=== PATIENT | male | born 1980 | race Caucasian/White ===

== ENCOUNTER 2021-08-06 10:27 | Inpatient (IN) | payer MEDICAID, SELFPAY ==
[2021-08-06] VITALS (20 sets, daily range): BP systolic 104–166; BP diastolic 54–111; PULSE 131–147; RESP 16–24; TEMP 36.7–37.3; O2SAT 93–100; BMI 62.4; BMI 63.1
--- NOTE | 2021-08-06 10:35 | XR_ITS ---
WS: [id number] XR chest 1V portable [id number] REASON FOR EXAM: Upper respiratory symptoms, SOB FINDINGS: Mild tortuosity the thoracic aorta. Cardiomegaly. Reticular and hazy lung opacities in both lower lungs. No pleural fluid identified. Bony thorax intact. XR/XR chest 1V portable [id number] IMPRESSION: Lung opacities which are most compatible with subacute pneumonitis.
--- NOTE | 2021-08-06 12:46 | ECG_ITS ---
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 Measurements Intervals [place] Rate: 145 P: [place]: QRS: 147 QRSD: 97 T: 120 QT: 229 QTc: 357 Interpretive Statements ATRIAL FLUTTER WITH RAPID VENTRICULAR RESPONSE POSSIBLE RIGHT VENTRICULAR HYPERTROPHY POSSIBLE LIMB LEAD REVERSAL ANTEROLATERAL MYOCARDIAL INFARCTION , PROBABLY RECENT No previous ECG available for comparison Electronically Signed On 08-06-2021 19:25:48 DOBBY LOOM WEAVER by Pretty Larry M.D. [id number] f
--- NOTE | 2021-08-06 12:49 | W.ED.ARRPALP ---
HPI - Arrhythmia/Palpitations General: Chief Complaint: Shortness of Breath/Dyspnea Stated Complaint: SOB, Possible Upper respiratory Time Seen by Provider: 08/06/21 12:19 History of Present Illness: 41-year-old male presents to the emergency room with complaint of shortness of breath and rapid heart rate with a cough. Been going on for the last 5 days feels like he cannot take a deep breath he is noticed very sudden drop in his stamina with any exertion. Feels like he can hardly catch his breath at times he feels like he cannot take a deep breath he describes it as feeling like there is fluid on his lungs. Patient is super morbidly obese with a BMI of 62-1/2. He has not had any chest pain. No fever sweats or chills MD complaint: rapid heart beat and heart racing Onset (ago): day(s) (5) Duration: constant Severity: moderate Context: occurred during rest Associated symptoms: Reports short of breath; Deny anxiety, cough, diaphoresis, muscle cramps, nausea, paresthesias, sense of impending doom, syncope or vomiting Review of Systems Const: Denies: diaphoresis ENMT: Denies: throat pain, ear or mastoid pain, nasal discharge or nasal congestion Card: Denies: syncope Resp: Denies: dyspnea, productive cough or non-productive cough GI: Denies: nausea or vomiting : Denies: flank pain, dysuria, urinary frequency or urinary urgency Musc: Denies: muscle cramps Skin/Breast: Denies: rash or pruritus Psych: Denies: anxiety PFSH ED PFSH: Medical History Diabetes mellitus type 2 in obese Hyperlipidemia Hypertension Obesity Obstructive sleep apnea Surgical History History of knee surgery Family History Other Dementia Diabetes Social History Smoking and tobacco status: current every day smoker Alcohol intake: current Alcohol intake frequency: holidays/special occasions only Physical Exam Const: COMMON NORMALS: no acute distress GENERAL APPEARANCE: cooperative and comfortable ORIENTATION/CONSCIOUSNESS: Yes awake, Yes oriented to person, Yes oriented to place and Yes oriented to time HENMT: COMMON NORMALS: normocephalic, atraumatic and hearing grossly normal bilaterally HEAD & SCALP: normocephalic and atraumatic Resp: COMMON NORMALS: normal respiratory effort, No retractions, No use of accessory muscles and clear to auscultation bilaterally AUSCULTATION: clear to auscultation bilaterally Cardio: RATE: tachycardic RHYTHM: abnormal rhythm irregularly irregular GI: COMMON NORMALS: Soft to palpation and No hepatosplenomegaly present AUSCULTATION: Yes normoactive bowel sounds PALPATION: Yes Soft to palpation, No Tenderness to palpation present (GI), No Guarding due to palpation present (GI) and Yes No hepatosplenomegaly present Extremity: COMMON NORMALS: normal to inspection, capillary refill normal, no clubbing, cyanosis or edema, no calf tenderness and no pedal edema Neuro: SENSORIUM/ORIENTATION: Yes oriented to person, Yes oriented to place and Yes oriented to time Skin: COMMON NORMALS: no rashes or lesions noted GENERAL SKIN EXAM: no rashes or lesions noted Course Vital Signs: Vital signs: Vital Signs Temperature 97.7 F 08/11/21 06:49 Pulse Rate 97 08/11/21 08:04 Respiratory Rate 15 08/11/21 06:49 Blood Pressure 134/73 08/11/21 06:49 Pulse Oximetry 92 08/11/21 06:49 MDM - Arrhythmia/Palpitations Medical Decision Making A. fib/flutter. Patient resistant to Cardizem changed to esmolol. Discussed with hospitalist will admit consult cardiology. Incidental finding of cystitis. Treatment initiated. Medical Records I reviewed the patient's medical records. Lab Data I reviewed the patient's lab results. : 08/11/21 04:02 08/10/21 04:18 Radiology Impressions Chest X-Ray 08/06/21 10:35 IMPRESSION: Lung opacities which are most compatible with subacute pneumonitis. Laboratory Results WBC 15.2 10^3/uL (4.0-10.0) H 08/06/21 13:02 RBC 4.77 10^6/uL (4.1-5.3) 08/06/21 13:02 Hgb 14.5 g/dL (11.7-16.6) 08/06/21 13:02 Hct 43.7 % (42.0-52.0) 08/06/21 13:02 MCV 91.6 fl (80-94) 08/06/21 13:02 MCH 30.4 pg (28.0-34.0) 08/06/21 13:02 MCHC 33.2 g/dL (30.0-36.0) 08/06/21 13:02 RDW 13.8 % (12.1-15.1) 08/06/21 13:02 Plt Count 310 10^3/cmm (130-400) 08/06/21 13:02 MPV 11.4 fL (7.4-10.4) H 08/06/21 13:02 Neut % (Auto) 75.3 % 08/06/21 13:02 Lymph % (Auto) 14.9 % 08/06/21 13:02 Summers % (Auto) 5.5 % 08/06/21 13:02 Eos % (Auto) 3.3 % 08/06/21 13:02 Baso % (Auto) 0.5 % 08/06/21 13:02 Neut # (Auto) 11.45 10^3/uL (1.8-7.7) H 08/06/21 13:02 Lymph # (Auto) 2.3 10^3/uL (0.8-4.8) 08/06/21 13:02 Summers # (Auto) 0.8 10^3/uL (0.2-0.9) 08/06/21 13:02 Eos # (Auto) 0.5 10^3/uL (0.0-0.8) 08/06/21 13:02 Baso # (Auto) 0.1 10^3/uL (0.0-0.1) 08/06/21 13:02 Nucleated RBC % (auto) 0 % 08/06/21 13:02 Nucleated RBCs # 0.0 /100WBC 08/06/21 13:02 Sodium 142 mmol/L (136-145) 08/06/21 13:02 Potassium 3.8 mmol/L (3.5-5.1) 08/06/21 13:02 Chloride 101 mmol/L (98-107) 08/06/21 13:02 Carbon Dioxide 24 mmol/L (22-29) 08/06/21 13:02 Anion Gap 20.8 (5-19) H 08/06/21 13:02 BUN 10 mg/dL (6-20) 08/06/21 13:02 Creatinine 0.6 mg/dL (0.7-1.2) L 08/06/21 13:02 GFR Calculation 147.0 mL/min (90-130) H 08/06/21 13:02 Glucose 150 mg/dL (65-115) H 08/06/21 13:02 Calculated Osmolality 296 mOsm/kg (285-295) H 08/06/21 13:02 Calcium 9.4 mg/dL (8.5-10.5) 08/06/21 13:02 Magnesium 1.8 mg/dL (1.7-2.3) 08/06/21 13:55 Total Bilirubin 0.5 mg/dL (0.15-1.2) 08/06/21 13:02 AST 36 U/L (0-40) 08/06/21 13:02 ALT 56 U/L (0-41) H 08/06/21 13:02 Alkaline Phosphatase 77 IU/L (40-130) 08/06/21 13:02 Creatine Kinase 148 U/L (39-308) 08/06/21 13:02 Troponin T Baseline 45 ng/L (0-15) H 08/06/21 13:55 NT-Pro-B Natriuret Pep 1646 pg/mL (0-125) H 08/06/21 13:55 Total Protein 6.6 g/dL (6.6-8.7) 08/06/21 13:02 Albumin 4.3 g/dL (3.5-5.2) 08/06/21 13:02 Globulin 2.3 g/dL (1.3-4.6) 08/06/21 13:02 Procalcitonin 0.05 ng/mL (0-0.5) 08/06/21 13:55 TSH 3.62 uIU/mL (0.27-4.20) 08/06/21 13:55 Urine Color Yellow (Yellow) 08/06/21 13:55 Urine Appearance Cloudy (CLEAR) 08/06/21 13:55 Urine pH 5 (5-7) 08/06/21 13:55 Ur Specific [place] 1.020 (1.005-1.030) 08/06/21 13:55 Urine Protein 3+ (Negative) H 08/06/21 13:55 Urine Glucose (UA) Norm (Normal) 08/06/21 13:55 Urine Ketones Negative (Negative) 08/06/21 13:55 Urine Blood 2+ (Negative) H 08/06/21 13:55 Urine Nitrate Negative (Negative) 08/06/21 13:55 Urine Bilirubin Neg (Negative) 08/06/21 13:55 Urine Urobilinogen Neg mg/dL (Negative) 08/06/21 13:55 Ur Leukocyte Esterase 2+ (Negative) H 08/06/21 13:55 Urine RBC 5-10 /hpf (0-2) H 08/06/21 13:55 Urine WBC >100 /hpf (0-5) H 08/06/21 13:55 Ur Squamous Epith Cells 0-4 /hpf (0-5) H 08/06/21 13:55 Amorphous Sediment Not Reportable 08/06/21 13:55 Urine Bacteria 2+ /hpf (NONE) H 08/06/21 13:55 Coronavirus 229E (PCR) Not detected (NOT DETECT) 08/06/21 14:15 SARS-CoV-2 (PCR) Not detected (NOT DETECT) 08/06/21 14:15 Discharge Plan Discharge Patient Disposition: Admitted As Inpatient Admit Provider: Judy Clark Clinical Impression: Atrial flutter with rapid ventricular response, CHF (congestive heart failure), Obstructive sleep apnea, Diabetes mellitus type 2 in obese, Hypertension, UTI (urinary tract infection) Condition: Stable Coding Level of Care Code ED [employer] Mill Lab Technician for Tomeka Sanz
[2021-08-06 13:16] LABS: Basophils # 0.1 10^3/uL (0.0-0.1); Basophils % 0.5 %; Eosinophils # 0.5 10^3/uL (0.0-0.8); Eosinophils % 3.3 %; Hematocrit 43.7 % (42.0-52.0); Hemoglobin 14.5 g/dL (11.7-16.6); Lymphocytes # 2.3 10^3/uL (0.8-4.8); Lymphocytes % 14.9 %; Mean Corpuscular HGB Conc 33.2 g/dL (30.0-36.0); Mean Corpuscular Hemoglobin 30.4 pg (28.0-34.0); Mean Corpuscular Volume 91.6 fl (80-94); Mean Platelet Volume 11.4 fL (7.4-10.4); Monocytes # 0.8 10^3/uL (0.2-0.9); Monocytes % 5.5 %; Neutrophils # 11.45 10^3/uL (1.8-7.7); Neutrophils % 75.3 %; Nucleated Red Blood Cells % 0 %; Platelet Count 310 10^3/cmm (130-400); Red Blood Count 4.77 10^6/uL (4.1-5.3); Red Cell Distribution Width 13.8 % (12.1-15.1); White Blood Count 15.2 10^3/uL (4.0-10.0)
[2021-08-06 13:55] LABS: Alanine Aminotransferase 56 U/L (0-41); Albumin Level 4.3 g/dL (3.5-5.2); Alkaline Phosphatase 77 IU/L (40-130); Anion Gap 20.8 (5-19); Aspartate Amino Transferase 36 U/L (0-40); Blood Urea Nitrogen 10 mg/dL (6-20); Calcium 9.4 mg/dL (8.5-10.5); Carbon Dioxide 24 mmol/L (22-29); Chloride 101 mmol/L (98-107); Creatine Phosphokinase 148 U/L (39-308); Globulin 2.3 g/dL (1.3-4.6); Glucose 150 mg/dL (65-115); Osmolality Calculated 296 mOsm/kg (285-295); Potassium 3.8 mmol/L (3.5-5.1); Sodium 142 mmol/L (136-145); Total Bilirubin 0.5 mg/dL (0.15-1.2); Total Protein 6.6 g/dL (6.6-8.7)
[2021-08-06 14:24] LABS: Bilirubin Urine Neg (Negative); Blood Urine 2+ (Negative); Glucose Urine UA Norm (Normal); Ketones Urine Negative (Negative); Nitrate Urine Negative (Negative); Protein Urine 3+ (Negative); Urine Appearance Cloudy (CLEAR); Urine Color Yellow (Yellow); pH Urine 5 (5-7)
[2021-08-06 14:25] LABS: Add Urine Culture? Yes; Add Urine Microscopic? YES; Bacteria Urine 2+ /hpf; Leukocyte Esterase Urine 2+ (Negative); Squamous Epithelial Cell Urine 0-4 /hpf (0-5); Urobilinogen Urine Neg (Negative); WBC Urine >100 /hpf (0-5)
[2021-08-06 14:44] LABS: Troponin(5th) Baseline 45 ng/L (0-15)
--- NOTE | 2021-08-06 14:46 | ECG_ITS ---
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 Measurements Intervals [place] Rate: 142 P: [place]: QRS: 105 QRSD: 84 T: 56 QT: 290 QTc: 447 Interpretive Statements ATRIAL FLUTTER WITH RAPID VENTRICULAR RESPONSE RIGHT AXIS DEVIATION [QRS AXIS > 100] LOW QRS VOLTAGE [QRS DEFLECTION < 0.5/1.0 mV IN LIMB/CHEST LEADS] ANTEROSEPTAL MYOCARDIAL INFARCTION , OF INDETERMINATE AGE [40+ ms Q WAVE IN V1-V4] Compared to ECG 08/06/2021 16:31:02 No significant changes Electronically Signed On 08-06-2021 19:35:03 BINGO CLERK by Pretty Larry M.D. [id number]
[2021-08-06 14:50] LABS: NT Pro B Type Natriuretic Pept 1646 pg/mL (0-125); Procalcitonin 0.05 ng/mL (0-0.5)
--- NOTE | 2021-08-06 15:15 | P.HP_ITS ---
Providers/Chief Complaint Chief Complaint: SOB, Possible Upper respiratory History of Present Illness Franco Flowers is a 41 year old male who presents with concerns of shortness of breath occurring for at least the last 3 days. He coughs a lot, and is significantly short of breath when he lays down. He reports this is not happened before. He denies any significant heart problems other than hypertension. He reports no fever. No real productivity to his cough. No history of Covid, exposure, or vaccination. Denies any chest discomfort, severe leg swelling, leg pain. In the emergency department he was placed on a diltiazem drip after bolus, which was not effective and and he has been converted to esmolol. A UTI was also discovered and he received a dose of ceftriaxone. Review of Systems General: Reports: 10 or more systems reviewed and unremarkable except in HPI and below Const: Denies: fever(s) or chills Eyes: Denies: change in vision ENMT: Denies: throat pain Card: Reports: dyspnea on exertion and orthopnea; Denies: chest pain Resp: Reports: dyspnea GI: Denies: abdominal pain, nausea, vomiting, hematochezia or melena : Denies: flank pain, urinary frequency or urinary urgency Musc: Denies: neck pain Skin/Breast: Denies: rash Neuro: Denies: headache(s) Psych: Denies: anxiety Marco/Lymph: Denies: easy bruising All/Imm: Denies: urticaria Medications/Allergies Home Medications Medication Instructions Recorded Confirmed Last Taken Type atorvastatin 20 mg tablet (Lipitor) 20 mg PO DAILY 08/06/21 08/06/21 04/28/21 History hydrochlorothiazide 25 mg tablet 25 mg PO BID 08/06/21 08/06/21 04/28/21 History losartan 100 mg tablet 100 mg PO DAILY 08/06/21 08/06/21 04/28/21 History metformin 1,000 mg tablet 1,000 mg PO BID 08/06/21 08/06/21 04/28/21 History Allergies Allergy/AdvReac Type Severity Reaction Status Date / Time meperidine [From Demerol] Allergy ALGY-Hives Verified 08/06/21 11:00 lucius Allergy ALGY-Anaphy Uncoded 08/06/21 11:00 laxis PFSH Acute PFSH: Medical History (Updated 08/06/21 @ 15:26 by Carlos Serrano MD) Diabetes mellitus type 2 in obese Hyperlipidemia Hypertension Obesity Obstructive sleep apnea Surgical History (Updated 08/06/21 @ 15:18 by Carlos Serrano MD) History of knee surgery Family History (Updated 08/06/21 @ 15:19 by Carlos Serrano MD) Other Dementia Diabetes Social History (Updated 08/06/21 @ 15:19 by Carlos Serrano MD) Smoking and tobacco status: current every day smoker Alcohol intake: current Alcohol intake frequency: holidays/special occasions only Vitals/I&O/Wt Last Vital Signs Temp 98.0 F 08/06/21 13:24 Pulse 147 H 08/06/21 13:24 Resp 22 H 08/06/21 13:24 BP 163/107 08/06/21 13:24 Pulse Ox 96 08/06/21 13:24 08/06/21 08/06/21 08/06/21 06:59 14:59 22:59 Intake Total 7.584 / 7.584 Balance 7.584 / 7.584 Weight last 48 hrs Weight 208.652 kg Physical Exam Narrative: General exam is a male, no distress, sitting up reporting he is short of breath with minimal exertion HEENT: Atraumatic normocephalic. Oropharynx clear. Neck is supple no lymphadenopathy or thyromegaly Cardiovascular irregular, irregular with accelerated rate, no murmur Lungs clear no wheezing or crackles Abdomen is soft obese nontender. Estimation of organomegaly cannot occur secondary to obesity exams deferred Extremities 1+ edema Skin acanthosis noted Neuro no obvious focal deficits. Data : 08/06/21 13:02 08/06/21 13:02 Other Labs: LFTs normal with exception of slight elevation of ALT at 56. Troponin 45 BNP 1646 Urinalysis with greater than 100 whites, 5-10 reds chest xray difficult to interpret secondary to obesity. Possibly fluid overload. EKG Aflutter with RVR, RAD A&P Assessment and plan (1) Atrial flutter with rapid ventricular response: Significant atrial fibrillation with rapid ventricular rate on arrival to the emergency department. He has failed to respond to Cardizem IV. Esmolol IV has been ordered Lasix 40 mg IV x1. He appears to have some fluid overload, likely secondary to his fast rate. This is consistent with acute diastolic heart failure. If rate can come under control consider initiation of oral Cardizem along with the esmolol. Could potentially tolerate digoxin as well. Anticoagulation will be initiated. I discussed the risks and benefits with the patient. Check echocardiogram, TSH, magnesium level Status: Acute (2) Hypertension: Hold his losartan Lasix 40 mg IV x1 Esmolol drip has been initiated Likely will initiate Cardizem p.o. as well Addition of ARB depending upon blood pressure after the above Status: Acute (3) UTI (urinary tract infection): Urine culture Rocephin 1 g IV every 24 hours No evidence of sepsis Status: Acute Plan Diabetes mellitus. Sliding scale insulin. History of obstructive sleep apnea. He reports he cannot tolerate BiPAP Tobacco dependency. Encourage cessation. Multiple other medical problems as outlined in past medical history Full code Anticoagulation for DVT prophylaxis Attestations Medical Necessity Statement*: Will need greater than 2 midnight stay secondary to new onset atrial fibrillation with rapid ventricular rate. Time Spent in Patient Care: Greater than 35 minutes spent in patient care. Coding Level of Care Code Acute Actuarial Technician for Tomeka Sanz Diagnoses Atrial flutter with rapid ventricular response I48.92 Hypertension I10 UTI (urinary tract infection) N39.0
[2021-08-06 15:17] LABS: Magnesium 1.8 mg/dL (1.7-2.3); Thyroid Stimulating Hormone 3.62 uIU/mL (0.27-4.20)
[2021-08-06] MEDS: esmolol drip 2,500 MG/250 ML PREMIX 62.6 MG IV (15:17)
[2021-08-06 15:57] LABS: Troponin 5 2HR 47.09 ng/L (0-15)
[2021-08-06 15:58] LABS: Troponin 5 2HR Delta 2.09 ABS# (0-10)
[2021-08-06] MEDS: FUROsemide 10 mg/mL SDV 4mL 40 MG IVP (16:10)
[2021-08-06 16:11] LABS: Adenovirus Not Detected (NOT DETECT); Chlamydia Pneumoniae Not Detected (NOT DETECT); Coronavirus 229E,HKU1,NL63,OC4 Not Detected (NOT DETECT); Human Metapneumovirus Not Detected (NOT DETECT); Human Rhinovirus/Enterovirus Not Detected (NOT DETECT); Influenza A Not Detected (NOT DETECT); Influenza A H1 Not Detected (NOT DETECT); Influenza A H1-2009 Not Detected (NOT DETECT); Influenza A H3 Not Detected (NOT DETECT); Influenza B Not Detected (NOT DETECT); Mycoplasma Pneumoniae Not Detected (NOT DETECT); Parainfluenza Virus Type 1 Not Detected (NOT DETECT); Parainfluenza Virus Type 2 Not Detected (NOT DETECT); Parainfluenza Virus Type 3 Not Detected (NOT DETECT); Parainfluenza Virus Type 4 Not Detected (NOT DETECT); Respiratory Syncytial Virus A Not Detected (NOT DETECT); Respiratory Syncytial Virus B Not Detected (NOT DETECT); SARS-COV-2 Not Detected (NOT DETECT)
[2021-08-06] MEDS: digoxin 250 mcg/ml INJ 2 mL 500 MCG IVP (16:54)
[2021-08-06] MEDS: esmolol drip 2,500 MG/250 ML PREMIX 156.49 MG IV (17:41)
--- NOTE | 2021-08-06 18:46 | ECG_ITS ---
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 Measurements Intervals [place] Rate: 143 P: [place]: QRS: 106 QRSD: 91 T: 59 QT: 298 QTc: 460 Interpretive Statements ATRIAL FLUTTER WITH RAPID VENTRICULAR RESPONSE RIGHT AXIS DEVIATION [QRS AXIS > 100] LOW QRS VOLTAGE [QRS DEFLECTION < 0.5/1.0 mV IN LIMB/CHEST LEADS] ANTEROSEPTAL MYOCARDIAL INFARCTION , OF INDETERMINATE AGE [40+ ms Q WAVE IN V1-V4] Compared to ECG 08/06/2021 12:30:11 Right-axis deviation now present Low QRS voltage now present Atrial abnormality no longer present Myocardial infarct finding still present Electronically Signed On 08-06-2021 19:37:20 CRIME SCENE ANALYST by Pretty Larry M.D. [id number]
[2021-08-06] MEDS: esmolol drip 2,500 MG/250 ML PREMIX 187.79 MG IV ×3 (20:00→22:36)
[2021-08-06] MEDS: apixaban 5 mg Tablet PO (20:13)
[2021-08-06 20:36] LABS: Troponin 5 6HR 54.52 ng/L (0-15)
[2021-08-06 20:39] LABS: Troponin 5 6HR Delta 9.52 ng/L (0-12)
[2021-08-06 20:47] LABS: Glucose Point of Care 202 mg/dL (70-110)
[2021-08-06] MEDS: insulin lispro 100 unit/1 mL SUBCUT (21:13)
[2021-08-06] MEDS: digoxin 250 mcg/ml INJ 2 mL IVP (21:19)
[2021-08-06] MEDS: dilTIAZem 60 mg Tablet PO (21:59)
--- NOTE | 2021-08-06 23:45 | PC.NURSE ---
pt admitted to unit from ED. Pt was assisted to bed with standby assist. Pt placed on monitor. pt educated about need to monitor urine output and offered urinal to help monitor. pt refused urinal and SCD despite education provided. Pt stating he wants to walk to the bathroom.
[2021-08-07] VITALS (45 sets, daily range): BP systolic 109–156; BP diastolic 67–122; PULSE 79–139; RESP 14–28; TEMP 36.4–37.2; O2SAT 85–100; BMI 63.1
--- NOTE | 2021-08-07 | USCV_ITS ---
Transthoracic Echo Franco Flowers Age: 41 Gender: M : 1980 Exam Date: 08/07/2021 06:18 Ordering Phys: Carlos Serrano MD Technologist: TAMARA Exam Location: [facility] [place] Indication: A-Fib BP: 147 / 104 HR: 91 Rhythm: Atrial fibrillation Technical Quality: Adequate MEASUREMENTS (Male / Female) Normal Values 2D ECHO LV Diastolic Diameter PLAX 4.2 cm 4.2 - 5.9 / 3.9 - 5.3 cm LV Systolic Diameter PLAX 2.7 cm IVS Diastolic Thickness 1.8 cm 0.6 - 1.0 / 0.6 - 0.9 cm IVS Systolic Thickness 2.0 cm LVPW Diastolic Thickness 1.8 cm 0.6 - 1.0 / 0.6 - 0.9 cm LVPW Systolic Thickness 1.5 cm LVOT Diameter 2.6 cm LV Ejection Fraction 2D Teich 64.2 % LA Diameter 4.7 cm Aorta at Sinotubular Diameter 2.9 cm M-MODE Aortic Annulus Diameter 2.8 cm LA Ao Ratio MM 1.7 DOPPLER TR Peak Velocity 137.4 cm/s TR Peak Gradient 7.6 mmHg TR Mean Velocity 103.9 cm/s TR Mean Gradient 4.9 mmHg TR Velocity Time Integral 35.1 cm TV Peak E Velocity 68.0 cm/s Right Atrial Pressure 8.0 mmHg Pulmonary Artery Systolic Pressu 15.6 mmHg PV Peak Velocity 80.0 cm/s RV Acceleration Time 0.1 s RV Ejection Time 0.3 s RV AcT/ET 0.4 FINDINGS Left Ventricle Moderately increased left ventricular cavity size. Severely decreased left ventricular systolic function. Global left ventricular hypokinesis. Left ventricular ejection fraction is estimated at 30 %. In the presence of atrial fibrillation or flutter diastolic function cannot be assessed accurately. Right Ventricle The right ventricle is normal in size and function. RVSP could not be calculated due to incomplete tricuspid regurgitation velocity profile. Right Atrium The right atrium is normal in size. Left Atrium The left atrium is normal in size. Mitral Valve Structurally normal mitral valve without significant stenosis or prolapse. There is no mitral regurgitation. Aortic Valve Structurally normal aortic valve without significant sclerosis or stenosis. There is no aortic regurgitation. Tricuspid Valve Structurally normal tricuspid valve without significant stenosis or regurgitation. Pulmonary artery systolic pressure is normal. Pulmonic Valve Structurally normal pulmonic valve without significant stenosis. There is no pulmonic regurgitation. Pericardium Normal pericardium without effusion. Aorta Normal ascending aorta dimension. CONCLUSIONS 1-Moderately increased left ventricular cavity size. Severely decreased left ventricular systolic function. Global left ventricular hypokinesis. Left ventricular ejection fraction is estimated at 30 %. In the presence of atrial fibrillation or flutter diastolic function cannot be assessed accurately. 2-There is no pericardial effusion. 3-No significant valve abnormalities. 4-The right ventricle is normal in size and function. RVSP could not be calculated due to incomplete tricuspid regurgitation velocity profile. 5-There are no prior echocardiogram studies to compare. Teagan Arceo MD (Electronically Signed) Final Date: 07 August 2021 14:54 S
[2021-08-07] MEDS: esmolol drip 2,500 MG/250 ML PREMIX 156.49 MG IV ×3 (00:05→03:40)
[2021-08-07] MEDS: dilTIAZem 60 mg Tablet PO ×4 (03:40→21:08)
[2021-08-07 04:17] LABS: Basophils # 0.1 10^3/uL (0.0-0.1); Basophils % 0.4 %; Eosinophils # 0.5 10^3/uL (0.0-0.8); Eosinophils % 3.9 %; Hematocrit 42.1 % (42.0-52.0); Hemoglobin 13.7 g/dL (11.7-16.6); Lymphocytes # 2.1 10^3/uL (0.8-4.8); Lymphocytes % 15.7 %; Mean Corpuscular HGB Conc 32.5 g/dL (30.0-36.0); Mean Corpuscular Hemoglobin 30.8 pg (28.0-34.0); Mean Corpuscular Volume 94.6 fl (80-94); Mean Platelet Volume 11.4 fL (7.4-10.4); Monocytes # 0.8 10^3/uL (0.2-0.9); Neutrophils # 9.86 10^3/uL (1.8-7.7); Neutrophils % 73.6 %; Nucleated Red Blood Cells % 0 %; Platelet Count 294 10^3/cmm (130-400); Red Blood Count 4.45 10^6/uL (4.1-5.3); Red Cell Distribution Width 14.2 % (12.1-15.1); White Blood Count 13.4 10^3/uL (4.0-10.0)
[2021-08-07 04:39] LABS: Anion Gap 14.8 (5-19); Blood Urea Nitrogen 12 mg/dL (6-20); Calcium 9.4 mg/dL (8.5-10.5); Carbon Dioxide 26 mmol/L (22-29); Chloride 101 mmol/L (98-107); Glomerular Filtration Rate 105.5 mL/min (90-130); Glucose 124 mg/dL (65-115); Osmolality Calculated 287 mOsm/kg (285-295); Potassium 3.8 mmol/L (3.5-5.1); Sodium 138 mmol/L (136-145)
[2021-08-07] MEDS: esmolol drip 2,500 MG/250 ML PREMIX 125.19 MG IV (05:30)
[2021-08-07] MEDS: perflutren protein-a microsphr 0.22 mg/mL SDV 3 mL IV (07:31)
[2021-08-07] MEDS: esmolol drip 2,500 MG/250 ML PREMIX 93.89 MG IV ×6 (07:59→22:07)
[2021-08-07 08:39] LABS: Glucose Point of Care 122 mg/dL (70-110)
[2021-08-07] MEDS: atorvastatin 40 mg Tablet 20 MG PO (09:35)
[2021-08-07] MEDS: apixaban 5 mg Tablet PO ×2 (09:35→18:23)
[2021-08-07] MEDS: pantoprazole DR 40 mg Tablet PO (09:36)
--- NOTE | 2021-08-07 10:48 | P.CONIM_ITS ---
Providers/Reason For Consult Consulting Physician/Specialty*: Teagan Arceo MD Reason for Consult*: Atrial flutter with rapid ventricular response Requesting Physician: Dr. Donald Bearden Attending Physician: Carlos Serrano MD History of Present Illness History of Present Illness Franco Flowers is a 41 year old male past medical history significant for obstructive sleep apnea morbid obesity uncontrolled hypertension questionable compliance with medicine tobacco abuse presented with worsening of shortness of breath fatigue and palpitation. He was noted to be in atrial flutter with rapid ventricle response. He was also given IV Lasix for volume overload. UA was p ositive for infection which is being treated however despite of esmolol drip, calcium channel danis and addition of digoxin his heart rate has not slowed down. I have been asked to assist in his care. When I saw the patient he was sitting in the chair. He gave me history of post nocturnal dyspnea and lower extremity edema from time to time. He denies that he had weight gain however he has noticed that he is progressively getting worse with shortness of breath and lack energy. Review of Systems General: Reports: 10 or more systems reviewed and unremarkable except in HPI and below Const: Denies: fever(s) or chills Eyes: Denies: change in vision ENMT: Denies: throat pain Card: Reports: dyspnea on exertion and orthopnea; Denies: chest pain Resp: Reports: dyspnea GI: Denies: abdominal pain, nausea, vomiting, hematochezia or melena : Denies: flank pain, urinary frequency or urinary urgency Musc: Denies: neck pain Skin/Breast: Denies: rash Neuro: Denies: headache(s) Psych: Denies: anxiety Marco/Lymph: Denies: easy bruising All/Imm: Denies: urticaria Medications/Allergies Home Medications Medication Instructions Recorded Confirmed Last Taken Type atorvastatin 20 mg tablet (Lipitor) 20 mg PO DAILY 08/06/21 08/06/21 04/28/21 History hydrochlorothiazide 25 mg tablet 25 mg PO BID 08/06/21 08/06/21 04/28/21 History losartan 100 mg tablet 100 mg PO DAILY 08/06/21 08/06/21 04/28/21 History metformin 1,000 mg tablet 1,000 mg PO BID 08/06/21 08/06/21 04/28/21 History Allergies Allergy/AdvReac Type Severity Reaction Status Date / Time meperidine [From Demerol] Allergy ALGY-Hives Verified 08/06/21 11:00 lucius Allergy ALGY-Anaphy Uncoded 08/06/21 11:00 laxis Current Medications Generic Name Dose Route Start Last Admin Trade Name Freq PRN Reason Stop Dose Admin Apixaban 5 mg 08/06/21 18:00 08/07/21 09:35 Apixaban 5 Mg Tablet PO 5 mg BID CHICO Administration Atorvastatin Calcium 20 mg 08/07/21 09:00 08/07/21 09:35 Atorvastatin 40 Mg Tablet PO 20 mg DAILY [facility] Administration Diltiazem HCl 60 mg 08/06/21 22:00 08/07/21 09:35 Diltiazem 60 Mg Tablet PO 60 mg Q6H [facility] Administration Esmolol HCl 2,500 mg in 250 mls @ 0 mls/hr 08/06/21 15:00 08/07/21 10:37 Brevibloc Drip IV 75 mcg/kg/min .Q0M [facility] 93.89 mls/hr Administration Protocol Per Protocol Insulin Human Lispro 0 unit 08/06/21 20:26 08/07/21 09:30 Insulin Lispro 100 Unit/1 Ml SUBCUT Not Given WM&BEDTIME [facility] Protocol Pantoprazole Sodium 40 mg 08/07/21 09:00 08/07/21 09:[address] 40 Mg Tablet PO 40 mg DAILY [facility] Administration PFSH Acute PFSH: Medical History (Updated 08/07/21 @ 21:12 by Teagan Arceo MD) Diabetes mellitus type 2 in obese Hyperlipidemia Hypertension Obesity Obstructive sleep apnea Surgical History (Updated 08/06/21 @ 15:18 by Carlos Serrano MD) History of knee surgery Family History (Updated 08/06/21 @ 15:19 by Carlos Serrano MD) Other Dementia Diabetes Social History (Updated 08/06/21 @ 15:19 by Carlos Serrano MD) Smoking and tobacco status: current every day smoker Alcohol intake: current Alcohol intake frequency: holidays/special occasions only Vitals/I&O/Wt Last Vital Signs Temp 97.6 F 08/07/21 06:00 Pulse 91 08/07/21 06:30 Resp 21 H 08/07/21 06:30 BP 122/92 08/07/21 06:30 Pulse Ox 93 08/07/21 06:30 08/06/21 08/07/21 08/07/21 22:59 06:59 14:59 Intake Total 1088.199 / 3086.324 1521.277 / 2935.060 369.967 / 369.967 Balance 1088.199 / 6399.175 9594.277 / 2935.060 369.967 / 369.967 Weight last 48 hrs Weight 466 lb Weight 466 lb Weight 460 lb Physical Exam Chest: OTHER: GENERAL: Patient is alert, awake and oriented x3. NECK: No jugular vein distension. HEENT: No cyanosis. No icterus. No pallor. HEART: Regular/tachycardic S1 and S2. No murmur, rub or gallop. LUNGS: Mild right side crackles otherwise reduced breath sound bilaterally. ABDOMEN: Soft, nontender and nondistended. Positive bowel sounds. No guarding, rebound or tenderness. CENTRAL NERVOUS SYSTEM: Grossly nonfocal. EXTREMITIES: Lower extremities with 1+ edema bilaterally. Data : 08/07/21 04:02 08/07/21 04:02 A&P Assessment and plan (1) Atrial flutter with rapid ventricular response: In the face of acute decompensated heart failure it will be difficult to control atrial flutter at the same time by losing atrial kick heart failure will not be easy to treat. We will discontinue Cardizem due to possible negative inotropic effect in the face of heart failure, will manage him with beta-danis and digoxin, if patient does not slow down after adequate diuresis will consider transesophageal echo guided electrical cardioversion. In either case we will also consider antiarrhythmics Status: Acute (2) CHF (congestive heart failure): Patient is in decompensated heart failure of systolic type which is new onset. He has multiple risk factors for coronary artery disease as well which at some point need to be ruled out with left heart cath. For now we will keep on diuresing him with Lasix 60 mg IV. Potassium 40 meq twice a day will be given. Our goal is -1.5 L every day. Further plan will be devised as per progress the patient Status: Acute (3) Hypertension: We will optimize medicine otherwise will control it with IV nitroglycerin in the presence of decompensated systolic heart failure. Status: Acute (4) LV dysfunction: Severely depressed LV dysfunction, will diurese him, medicine will be optimized, will start STEVE inhibitor, once rate controlled and euvolemic consider left heart cath to differentiate between ischemic versus nonischemic cardiomyopathy. 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
[2021-08-07] MEDS: metoprolol tartrate 50 mg Tablet PO (11:05)
[2021-08-07] MEDS: FUROsemide 10 mg/mL SDV 4mL 40 MG IVP (11:05)
[2021-08-07] MEDS: potassium chloride ER 20 mEq Tablet 40 MEQ PO ×2 (11:31→18:23)
[2021-08-07 12:07] LABS: Glucose Point of Care 136 mg/dL (70-110)
--- NOTE | 2021-08-07 13:05 | P.PN_ITS ---
Subjective Subjective: Seen earlier this morning. Reported his shortness of breath was better. Heart rate still around 120 resting. No chest discomfort. Medications: Reviewed: Yes Vitals/I&O/Wt Last Vital Signs Temp 97.6 F 08/07/21 06:00 Pulse 91 08/07/21 06:30 Resp 21 H 08/07/21 06:30 BP 122/92 08/07/21 06:30 Pulse Ox 93 08/07/21 06:30 08/06/21 08/07/21 08/07/21 22:59 06:59 14:59 Intake Total 1088.199 / 5167.220 4465.277 / 2935.060 369.967 / 369.967 Balance 1088.199 / 1060.694 3364.277 / 2935.060 369.967 / 369.967 Weight last 48 hrs Weight 211.374 kg Weight 211.374 kg Weight 208.652 kg Physical Exam Narrative: General exam is a male, no distress, heart rate still elevated Neck is supple no lymphadenopathy or thyromegaly Cardiovascular irregular, irregular with accelerated rate, no murmur Lungs clear no wheezing or crackles Abdomen is soft obese nontender. Estimation of organomegaly cannot occur secondary to obesity Extremities no cyanosis or clubbing. 1+ edema still present Data : 08/07/21 04:02 08/07/21 04:02 A&P Assessment and plan (1) Atrial flutter with rapid ventricular response: Significant atrial fibrillation with rapid ventricular rate on arrival to the emergency department. He has failed to respond to Cardizem IV. Currently on esmolol Metoprolol 50 mg twice a day initiated Diltiazem 60 mg every 6 hours Lasix 40 mg IV every 12 hours ordered This is consistent with acute diastolic heart failure. Cardiology has been consulted and increase this to 60 mg IV every 12 hours. Received several doses of digoxin last night Anticoagulation initiated with Eliquis TSH and magnesium level were normal Awaiting echocardiogram Status: Acute (2) Hypertension: Hold his losartan,, making more room for metoprolol and diltiazem Hopefully can wean off esmolol drip Addition of ARB depending upon blood pressure after the above Status: Acute (3) UTI (urinary tract infection): Urine culture pending Rocephin 1 g IV every 24 hours No evidence of sepsis Status: Acute Plan Diabetes mellitus. Sliding scale insulin. History of obstructive sleep apnea. He reports he cannot tolerate BiPAP Tobacco dependency. Encourage cessation. Multiple other medical problems as outlined in past medical history Full code Anticoagulation for DVT prophylaxis Attestations Medical Necessity Statement*: Needs continued hospitalization for control of atrial fibrillation with rapid ventricular rate, diuresis. Coding Level of Care Code Acute Seamstress Fitter for Chg Fwd Diagnoses Atrial flutter with rapid ventricular response I48.92 Hypertension I10 UTI (urinary tract infection) N39.0
[2021-08-07] MEDS: cefTRIAXone 1,000 MG in sodium chloride 0.9% (plus) 50 ML 100 MG IV (13:29)
[2021-08-07] MEDS: FUROsemide 10 mg/mL SDV 10mL 60 MG IVP (15:44)
[2021-08-07 17:30] LABS: Glucose Point of Care 132 mg/dL (70-110)
--- NOTE | 2021-08-07 20:04 | PC.NURSE ---
Shift Note Frequent safety and comfort rounds continue. Orders and/or nursing care completed as indicated. Patient monitored for response to intervention and treatment(s). Education provided includes GUS, Eliquis, Cardizem, Metoprolol, potassium, lasix, and heart failure. Patient and/or corporate sales representative verbalized understanding of pt's condition, plan of care and medications. Pt st up in chair all shift. Heart rate 90-130's, remain in A-fib. He was started on Lasix, potassium and metoprolol this shift. Possible GUS planned for am if pt does not convert to sinus rhythm. His has had over 2500ml of urine output this shift. . Will continue to monitor.
[2021-08-07 20:29] LABS: Glucose Point of Care 165 mg/dL (70-110)
[2021-08-07] MEDS: metoprolol tartrate 50 mg Tablet 75 MG PO (20:35)
[2021-08-07] MEDS: insulin lispro 100 unit/1 mL SUBCUT (20:43)
--- NOTE | 2021-08-07 22:05 | PC.NURSE ---
Physician Communication Dr. Arceo at bedside to see patient. Output for the day relayed. GUS in AM discussed, nurse to call in AM prior to procedure for update on patient.
[2021-08-08] VITALS (42 sets, daily range): BP systolic 122–157; BP diastolic 71–121; PULSE 60–117; RESP 15–25; TEMP 36.1–36.8; O2SAT 86–99
[2021-08-08] MEDS: esmolol drip 2,500 MG/250 ML PREMIX 93.89 MG IV ×5 (01:12→23:07)
[2021-08-08] MEDS: dilTIAZem 60 mg Tablet PO (03:09)
[2021-08-08] MEDS: FUROsemide 10 mg/mL SDV 10mL 60 MG IVP ×2 (05:25→16:07)
--- NOTE | 2021-08-08 06:41 | P.ANESASSM_ITS ---
Pre-Anesthetic Assessment Height/Weight: Height 1.83 m Weight 211.374 kg Temp Pulse Resp BP Pulse Ox 98.1 F 80 21 H 147/109 90 08/08/21 04:00 08/08/21 04:00 08/08/21 04:00 08/08/21 04:00 08/08/21 04:00 Preop Diagnosis: Atrial fibrillation GUS w/ cardioversion Familial anesthetic complications: None Was Beta Rakesh taken within 24 hours: Yes Was Clonidine taken within 24 hours: N/A Last intake: > 8 hrs Social Alcohol and Tobacco Exam alert, oriented x 3 and clear to auscultation bilaterally a fib Airway Mallampati: Class IV Dentition: chipped and other (poor dentition) Comments: Comments: large neck and tongue, scott Pulmonary Sleep Apnea CV/HEM Atrial Fibrillation, Congestive Heart Failure and Hypertension Metabolic Diabetes Mellitus and Morbid Obesity Anesthetic Plan ASA status: 4 Anesthesia: MAC Risk of > 500 ml blood loss (7ml/kg in children): No Medications/Allergies Home Medications Medication Instructions Recorded Confirmed Last Taken Type atorvastatin 20 mg tablet (Lipitor) 20 mg PO DAILY 08/06/21 08/06/21 04/28/21 History hydrochlorothiazide 25 mg tablet 25 mg PO BID 08/06/21 08/06/21 04/28/21 History losartan 100 mg tablet 100 mg PO DAILY 08/06/21 08/06/21 04/28/21 History metformin 1,000 mg tablet 1,000 mg PO BID 08/06/21 08/06/21 04/28/21 History Allergies Allergy/AdvReac Type Severity Reaction Status Date / Time meperidine [From Demerol] Allergy ALGY-Hives Verified 08/06/21 11:00 lucius Allergy ALGY-Anaphy Uncoded 08/06/21 11:00 laxis Current Medications Generic Name Dose Route Start Last Admin Trade Name Freq PRN Reason Stop Dose Admin Apixaban 5 mg 08/06/21 18:00 08/07/21 18:23 Apixaban 5 Mg Tablet PO 5 mg BID [facility] Administration Atorvastatin Calcium 20 mg 08/07/21 09:00 08/07/21 09:35 Atorvastatin 40 Mg Tablet PO 20 mg DAILY [facility] Administration Diltiazem HCl 60 mg 08/06/21 22:00 08/08/21 03:09 Diltiazem 60 Mg Tablet PO 60 mg Q6H [facility] Administration Furosemide 60 mg 08/07/21 16:00 08/08/21 05:25 Furosemide 10 Mg/Ml Sdv 10ml IVP 60 mg 0600,1600 [facility] Administration Esmolol HCl 2,500 mg in 250 mls @ 0 mls/hr 08/06/21 15:00 08/08/21 04:12 Brevibloc Drip IV 75 mcg/kg/min .Q0M [facility] 93.89 mls/hr Administration Protocol Per Protocol Ceftriaxone Sodium 1,000 mg/ 50 mls @ 100 mls/hr 08/07/21 14:00 08/07/21 13:29 Sodium Chloride IV 100 mls/hr Q24H [facility] Administration Protocol Insulin Human Lispro 0 unit 08/06/21 20:26 08/07/21 20:43 Insulin Lispro 100 Unit/1 Ml SUBCUT 2 unit WM&BEDTIME [facility] Administration Protocol Metoprolol Tartrate 75 mg 08/07/21 21:00 08/07/21 20:35 Metoprolol Tartrate 50 Mg Tablet PO 75 mg BID@0900,2100 [facility] Administration Pantoprazole Sodium 40 mg 08/07/21 09:00 08/07/21 09:[address] 40 Mg Tablet PO 40 mg DAILY [facility] Administration Potassium Chloride 40 meq 08/07/21 11:21 08/07/21 18:23 Potassium Chloride Er 20 Meq Tablet PO 40 meq BID [facility] Administration PFSH Anesthesia Medical History (Updated 08/07/21 @ 21:12 by Teagan Arceo MD) Diabetes mellitus type 2 in obese Hyperlipidemia Hypertension Obesity Obstructive sleep apnea Surgical History (Updated 08/06/21 @ 15:18 by Carlos Serrano MD) History of knee surgery Family History (Updated 08/06/21 @ 15:19 by Carlos Serrano MD) Other Dementia Diabetes Social History (Updated 08/06/21 @ 15:19 by Carlos Serrano MD) Smoking and tobacco status: current every day smoker Alcohol intake: current Alcohol intake frequency: holidays/special occasions only Data Anesthesia : 08/07/21 04:02 08/07/21 04:02 Short CBC 08/06/21 08/07/21 Range/Units 13:02 04:02 WBC 15.2 H 13.4 H (4.0-10.0) 10^3/uL Hgb 14.5 13.7 (11.7-16.6) g/dL Hct 43.7 42.1 (42.0-52.0) % MCV 91.6 94.6 H (80-94) fl Plt Count 310 294 (130-400) 10^3/cmm Neut % (Auto) 75.3 73.6 % Neut # (Auto) 11.45 H 9.86 H (1.8-7.7) 10^3/uL BMP 08/06/21 08/07/21 13:02 04:02 Sodium 142 138 Potassium 3.8 3.8 Chloride 101 101 Carbon Dioxide 24 26 BUN 10 12 Creatinine 0.6 L 0.8 Glucose 150 H 124 H Calcium 9.4 9.4 Cardiac Enzymes 08/06/21 08/06/21 08/06/21 Range/Units 13:02 13:02 13:55 Creatine Kinase 148 (39-308) U/L Troponin T Baseline Cancelled 45 H Troponin T 120 Minute (0-15) ng/L Delta Troponin T (0-10) ABS# Troponin T Hi Sens 6Hr (0-15) ng/L Troponin T Hi Sens 6Hr Delta (0-12) ng/L NT-Pro-B Natriuret Pep (0-125) pg/mL 08/06/21 08/06/21 08/06/21 Range/Units 13:55 15:25 19:45 Creatine Kinase (39-308) U/L Troponin T Baseline Troponin T 120 Minute 47.09 H (0-15) ng/L Delta Troponin T 2.09 (0-10) ABS# Troponin T Hi Sens 6Hr 54.52 H (0-15) ng/L Troponin T Hi Sens 6Hr Delta 9.52 (0-12) ng/L NT-Pro-B Natriuret Pep 1646 H (0-125) pg/mL Liver Function 08/06/21 Range/Units 13:02 Total Bilirubin 0.5 (0.15-1.2) mg/dL AST 36 (0-40) U/L ALT 56 H (0-41) U/L Alkaline Phosphatase 77 (40-130) IU/L Albumin 4.3 (3.5-5.2) g/dL Urine 08/06/21 Range/Units 13:55 Urine Color Yellow (Yellow) Urine Appearance Cloudy (CLEAR) Urine pH 5 (5-7) Ur Specific [place] 1.020 (1.005-1.030) Urine Protein 3+ H (Negative) Urine Glucose (UA) Norm (Normal) Urine Ketones Negative (Negative) Urine Nitrate Negative (Negative) Urine Bilirubin Neg (Negative) Ur Leukocyte Esterase 2+ H (Negative) Urine RBC 5-10 H (0-2) /hpf Urine WBC >100 H (0-5) /hpf COVID Results 08/06/21 14:15 Coronavirus 229E (PCR) Not detected SARS-CoV-2 (PCR) Not detected Cardiac Studies: No Data to Display
--- NOTE | 2021-08-08 07:00 | USCV_ITS ---
Franco Flowers Age: 41 Gender: M : 1980 Exam Date: 08/08/2021 07:03 Ordering Phys: Teagan Arceo MD ([email or web address]) Technologist: Hetal Magaña Exam Location: [facility] – [place] Indication: AFIB BP: 143 / 89 HR: 81 Rhythm: Atrial fibrillation Technical Quality: Adequate MEASUREMENTS (Male / Female) Normal Values FINDINGS Left Ventricle Moderately increased left ventricular cavity size. Severely decreased left ventricular systolic function. Left ventricular ejection fraction is estimated at 25 %. Right Ventricle The right ventricle is normal in size and function. Right Atrium The right atrium is normal in size. Left Atrium Moderately increased left atrial size. Velocity across the left atrial appendage is normal however his venous with possible smoke noted in the left atrial appendage suspicious for early thrombus Mitral Valve Moderately thickened mitral valve. No mitral valve stenosis. Moderate mitral valve regurgitation. Aortic Valve Structurally normal aortic valve without significant sclerosis or stenosis. There is no aortic regurgitation. Tricuspid Valve Mild tricuspid valve regurgitation. Pulmonic Valve Structurally normal pulmonic valve without significant stenosis. There is no pulmonic regurgitation. Pericardium Normal pericardium without effusion. Aorta Normal ascending aorta dimension. CONCLUSIONS 1-Moderately increased left ventricular cavity size. Severely decreased left ventricular systolic function. Left ventricular ejection fraction is estimated at 25 %. 2-Moderately increased left atrial size. Velocity across the left atrial appendage is normal however his venous with possible smoke noted in the left atrial appendage suspicious for early thrombus. 3-Moderately thickened mitral valve. No mitral valve stenosis. Moderate mitral valve regurgitation. 4-Mild tricuspid valve regurgitation. 5-There is no pericardial effusion. 6-There are no prior echocardiogram studies to compare. With suspicion of left atrial appendage thrombus plan for electrical cardioversion was changed Teagan Arceo MD (Electronically Signed) Final Date: 11 August 2021 21:06 S
[2021-08-08] MEDS: sodium chloride 0.9% 1,000 ML 30 ML IV (07:20)
--- NOTE | 2021-08-08 07:41 | P.PN_ITS ---
Subjective Subjective: Patient had 2400 output since yesterday. His heart rate has slowed down still in atrial flutter, mostly heart rate hangs around 70 to 90. Transesophageal echocardiogram was performed with intention to do cardioversion however haziness in the left appendage was highly suspicious of possible clot formation therefore we aborted cardioversion. Estimated ejection fraction was 25% while there was moderate MR. Medications: Reviewed: Yes Vitals/I&O/Wt Last Vital Signs Temp 98.1 F 08/08/21 04:00 Pulse 80 08/08/21 06:01 Resp 22 H 08/08/21 06:01 BP 143/89 08/08/21 07:00 Pulse Ox 94 08/08/21 06:01 08/07/21 08/08/21 08/08/21 22:59 06:59 14:59 Intake Total 1652 / 3271.967 750 / 4021.967 Output Total 1200 / 2800 1475 / 4275 Balance 452 / 471.967 -725 / -253.033 Weight last 48 hrs Weight 466 lb Weight 466 lb Weight 460 lb Physical Exam Chest: OTHER: GENERAL: Patient is alert, awake and oriented x3. NECK: No jugular vein distension. HEENT: No cyanosis. No icterus. No pallor. HEART: Regular/tachycardic S1 and S2. No murmur, rub or gallop. LUNGS: Mild right side crackles otherwise reduced breath sound bilaterally. ABDOMEN: Soft, nontender and nondistended. Positive bowel sounds. No guarding, rebound or tenderness. CENTRAL NERVOUS SYSTEM: Grossly nonfocal. EXTREMITIES: Lower extremities with 1+edema bilaterally. Data : 08/07/21 04:02 08/07/21 04:02 A&P Assessment and plan (1) Atrial flutter with rapid ventricular response: Continue beta-danis for now. Continue diuresing, will continue anticoagula tion in the form of apixaban Status: Acute (2) CHF (congestive heart failure): Will continue IV diuresis and potassium replacement, 60 mg IV twice daily Lasix with 40 mEq of potassium chloride twice daily Status: Acute (3) Hypertension: Continue to monitor we will optimize medicine Status: Acute (4) LV dysfunction: Severely depressed LV dysfunction, will diurese him, medicine will be optimized, will start STEVE inhibitor, once rate controlled and euvolemic consider left heart cath to differentiate between ischemic versus nonischemic cardiomyopathy. Status: Acute Attestations Medical Necessity Statement*: Patient require continuation hospitalization for above defined care Coding Level of Care Code Established Pt Acute Surgical Resident for Raquelg Fwd Patient Type Established History Detailed Exam Detailed Medical Decision Making Moderate Complexity Diagnoses Atrial flutter with rapid ventricular response I48.92 CHF (congestive heart failure) I50.9 Hypertension I10 LV dysfunction I51.9
--- NOTE | 2021-08-08 07:42 | W.PM.OPSUD ---
Surgery/Procedure H&P Update DATE OF PROCEDURE: August 08, 2021 DATE H&P PERFORMED: 08/07/21 PREOP DIAGNOSIS: Atrial fibrillation PRIMARY INDICATION FOR PROCEDURE: Transesophageal echo guided electrical cardioversion PLANNED PROCEDURE: Operation Date: 08/08/21 07:00 Proposed Procedures p GUS(Not Applicable) - Teagan Arceo MD Related Problem List Diagnoses (1) Atrial flutter with rapid ventricular response: Please see anesthesia note. Patient has been explained all risk benefit and alternative for the procedure. He understand risk for stroke injury to the mouth esophagus, risk for anesthesia. Risk for profound bradycardia. He would like to proceed with it. (2) CHF (congestive heart failure): (3) Hypertension: (4) LV dysfunction:
[2021-08-08 08:31] LABS: Glucose Point of Care 155 mg/dL (70-110)
[2021-08-08 08:50] LABS: Basophils # 0.1 10^3/uL (0.0-0.1); Basophils % 0.3 %; Eosinophils # 0.2 10^3/uL (0.0-0.8); Eosinophils % 1.3 %; Hemoglobin 13.5 g/dL (11.7-16.6); Lymphocytes # 1.5 10^3/uL (0.8-4.8); Lymphocytes % 10.1 %; Mean Corpuscular HGB Conc 31.4 g/dL (30.0-36.0); Mean Corpuscular Hemoglobin 29.7 pg (28.0-34.0); Mean Corpuscular Volume 94.7 fl (80-94); Mean Platelet Volume 11.5 fL (7.4-10.4); Monocytes # 0.9 10^3/uL (0.2-0.9); Monocytes % 5.7 %; Neutrophils # 12.49 10^3/uL (1.8-7.7); Nucleated Red Blood Cells % 0 %; Platelet Count 264 10^3/cmm (130-400); Red Blood Count 4.54 10^6/uL (4.1-5.3); Red Cell Distribution Width 14.2 % (12.1-15.1); White Blood Count 15.2 10^3/uL (4.0-10.0)
[2021-08-08] MEDS: metoprolol tartrate 50 mg Tablet 75 MG PO (09:09)
[2021-08-08] MEDS: atorvastatin 40 mg Tablet 20 MG PO (09:09)
[2021-08-08] MEDS: apixaban 5 mg Tablet PO ×2 (09:09→17:41)
[2021-08-08] MEDS: pantoprazole DR 40 mg Tablet PO (09:09)
[2021-08-08] MEDS: insulin lispro 100 unit/1 mL SUBCUT ×3 (09:09→20:05)
[2021-08-08] MEDS: potassium chloride ER 20 mEq Tablet 40 MEQ PO ×2 (09:09→17:41)
[2021-08-08 09:17] LABS: Blood Urea Nitrogen 15 mg/dL (6-20); Calcium 7.8 mg/dL (8.5-10.5); Carbon Dioxide 23 mmol/L (22-29); Chloride 101 mmol/L (98-107); Glomerular Filtration Rate 105.5 mL/min (90-130); Glucose 157 mg/dL (65-115); Magnesium 1.9 mg/dL (1.7-2.3); Osmolality Calculated 286 mOsm/kg (285-295); Sodium 136 mmol/L (136-145)
[2021-08-08 09:20] LABS: Anion Gap 16.2 (5-19); Potassium 4.2 mmol/L (3.5-5.1)
[2021-08-08 12:10] LABS: Glucose Point of Care 143 mg/dL (70-110)
[2021-08-08] MEDS: esmolol drip 2,500 MG/250 ML PREMIX 106.41 MG IV ×4 (12:16→20:32)
[2021-08-08] MEDS: cefTRIAXone 1,000 MG in sodium chloride 0.9% (plus) 50 ML 100 MG IV (14:02)
--- NOTE | 2021-08-08 14:22 | PM.PN ---
Subjective Subjective: Franco was not cardioverted this morning as there was concern of thrombus on GUS. EF was noted to be markedly depressed, around 20%. Patient himself denies any complaints this morning, feeling a little bit better with his heart rate being improved. Medications: Reviewed: Yes Vitals/I&O/Wt Last Vital Signs Temp 97 F L 08/08/21 07:36 Pulse 78 08/08/21 13:43 Resp 18 08/08/21 13:25 BP 125/107 08/08/21 13:25 Pulse Ox 93 08/08/21 13:25 08/07/21 08/08/21 08/08/21 22:59 06:59 14:59 Intake Total 1652 / 3321.967 750 / 4071.967 2550.000 / 2550.000 Output Total 1200 / 2800 1475 / 4275 0 / 0 Balance 452 / 521.967 -725 / -177.704 5246.000 / 2550.000 Weight last 48 hrs Weight 211.374 kg Weight 211.374 kg Physical Exam Narrative: General exam is a male, no distress, heart rate controlled but still on esmolol. Neck is supple no lymphadenopathy or thyromegaly Cardiovascular irregular, irregular with accelerated rate, no murmur Lungs clear no wheezing or crackles Abdomen is soft obese nontender. Estimation of organomegaly cannot occur secondary to obesity Extremities no cyanosis or clubbing. 1+ edema still present and unchanged Data : 08/08/21 08:29 08/08/21 08:29 A&P Assessment and plan (1) Atrial flutter with rapid ventricular response: Significant atrial fibrillation with rapid ventricular rate on arrival to the emergency department. He failed to respond to Cardizem IV. Currently on esmolol Increase metoprolol to 100 mg twice daily Diltiazem 60 mg every 6 hours Continue IV Lasix. Fluid restrict. He has been taking an incredible amount of oral fluids. Received several doses of digoxin last night Continue anticoagulation initiated with Eliquis. This may have to be amended should angiogram be performed. TSH and magnesium level were normal GUS demonstrated EF around 25%, haziness left appendage possible thrombus, moderate mitral regurgitation Status: Acute (2) Hypertension: Hold his losartan,, making more room for metoprolol and diltiazem Continue to try to wean off esmolol drip After diuresis would be a good candidate for ARB reinitiation, possible Aldactone Status: Acute (3) UTI (urinary tract infection): Urine culture pending Rocephin 1 g IV every 24 hours No evidence of sepsis Status: Acute Plan Acute systolic heart failure. Continue to diurese. Diabetes mellitus. Sliding scale insulin. History of obstructive sleep apnea. He reports he cannot tolerate BiPAP Tobacco dependency. Encourage cessation. Multiple other medical problems as outlined in past medical history Full code Anticoagulation for DVT prophylaxis Attestations Medical Necessity Statement*: Needs continued hospitalization secondary to difficult to control atrial fibrillation with rapid ventricular rate and cardiomyopathy. Critical Care Time: The high probability of a clinically significant, sudden or life threatening deterioration of the patient's [cardiovascular, pulmonary system(s) required my full and direct attention, intervention and personal management. The critical care time is as shown. This time is in addition to time spent performing any reported procedures but includes the following: [x] Data and vital sign review and interpretation [x] Patient assessment, examination and intervention [x] Documentation [x] Medication orders and management Critical Care Time (min): 32 Coding Level of Care Code Acute Linderman Operator for Chg Fwd Diagnoses Atrial flutter with rapid ventricular response I48.92 Hypertension I10 UTI (urinary tract infection) N39.0
[2021-08-08] MEDS: acetaminophen 325 mg Tablet 650 MG PO ×2 (14:41→23:58)
--- NOTE | 2021-08-08 16:44 | PC.NURSE ---
Left IV infiltrated with Esmolol. Area puffy. Pt denies pain. IV removed. Arm elevated. Checked with pharmacist, just leevate and warm compress Pt refused warm or cold compress at this time.
[2021-08-08 17:34] LABS: Glucose Point of Care 142 mg/dL (70-110)
--- NOTE | 2021-08-08 18:26 | PC.NURSE ---
Shift Note Frequent safety and comfort rounds continue. Orders and/or nursing care completed as indicated. Patient monitored for response to intervention and treatment(s). Education provided includes GUS, BiPap, metoprolol and fluid restrictions. Patient and/or customer retention representative verbalizes understanding of medications and ongoing plan of care. Pt has rested in the chair most of the shift. He went for a GUS this am, unable to do cardioversion at that time. He remains in A flutter, his rate is 70-90's. He agreed to try the BiPap tonight to help with his oxygenation and sleep apnea. He had an IV infiltrate Left AC, it is swollen and tight. Pt refused warm or cold compresses for his arm. He has had 1500ml urine output. He drank fluids fairly heavily today. Fluid restrictions ordered today.Will continue to monitor.
[2021-08-08] MEDS: metoprolol tartrate 50 mg Tablet 100 MG PO (20:02)
[2021-08-08 20:10] LABS: Glucose Point of Care 168 mg/dL (70-110)
[2021-08-08] MEDS: digoxin 125 mcg Tablet PO (22:00)
[2021-08-09] VITALS (47 sets, daily range): BP systolic 106–199; BP diastolic 77–141; PULSE 68–137; RESP 15–25; TEMP 36.8–37; O2SAT 87–97; BMI 63.1
[2021-08-09] MEDS: esmolol drip 2,500 MG/250 ML PREMIX 125.19 MG IV ×2 (01:34→03:45)
[2021-08-09 05:15] LABS: Basophils # 0.1 10^3/uL (0.0-0.1); Basophils % 0.3 %; Eosinophils # 0.3 10^3/uL (0.0-0.8); Eosinophils % 1.7 %; Hematocrit 44.3 % (42.0-52.0); Lymphocytes # 1.8 10^3/uL (0.8-4.8); Lymphocytes % 10.5 %; Mean Corpuscular HGB Conc 31.6 g/dL (30.0-36.0); Mean Corpuscular Hemoglobin 29.9 pg (28.0-34.0); Mean Corpuscular Volume 94.7 fl (80-94); Monocytes % 5.9 %; Neutrophils # 14.07 10^3/uL (1.8-7.7); Nucleated Red Blood Cells % 0 %; Platelet Count 281 10^3/cmm (130-400); Red Blood Count 4.68 10^6/uL (4.1-5.3); Red Cell Distribution Width 14.4 % (12.1-15.1); White Blood Count 17.4 10^3/uL (4.0-10.0)
[2021-08-09] MEDS: FUROsemide 10 mg/mL SDV 10mL 60 MG IVP ×2 (05:31→15:48)
[2021-08-09 05:54] LABS: Blood Urea Nitrogen 16 mg/dL (6-20); Calcium 8.2 mg/dL (8.5-10.5); Carbon Dioxide 23 mmol/L (22-29); Chloride 103 mmol/L (98-107); Glomerular Filtration Rate 105.5 mL/min (90-130); Glucose 149 mg/dL (65-115); Osmolality Calculated 292 mOsm/kg (285-295); Sodium 139 mmol/L (136-145)
[2021-08-09 06:02] LABS: Anion Gap 17.5 (5-19); Potassium 4.5 mmol/L (3.5-5.1)
--- NOTE | 2021-08-09 07:02 | PC.NURSE ---
Shift Note Frequent safety and comfort rounds continue. Orders and/or nursing care completed as indicated. Patient monitored for response to intervention and treatment(s). Patient spent all of shift in chair, resting very little. BIPAP applied for a few hours during rest but was requested to be removed by patient and was not applied anymore throughout the night. Heart rhythm remains in a flutter with a HR ranging from 90-110. Education provided includes SCD use, fluid restriction, and digoxin use/side effects. Patient verbalized understanding. Will continue to monitor.
[2021-08-09] MEDS: esmolol drip 2,500 MG/250 ML PREMIX 156.49 MG IV ×5 (08:11→15:49)
[2021-08-09 08:16] LABS: Glucose Point of Care 159 mg/dL (70-110)
[2021-08-09] MEDS: potassium chloride ER 20 mEq Tablet 40 MEQ PO ×2 (08:24→17:13)
[2021-08-09] MEDS: pantoprazole DR 40 mg Tablet PO (08:24)
[2021-08-09] MEDS: insulin lispro 100 unit/1 mL SUBCUT ×2 (08:24→20:17)
[2021-08-09] MEDS: apixaban 5 mg Tablet PO ×2 (08:24→17:13)
[2021-08-09] MEDS: digoxin 125 mcg Tablet PO (08:25)
[2021-08-09] MEDS: metoprolol tartrate 50 mg Tablet 100 MG PO ×2 (08:25→20:17)
[2021-08-09] MEDS: atorvastatin 40 mg Tablet 20 MG PO (08:25)
--- NOTE | 2021-08-09 10:41 | PM.PN ---
Subjective Subjective: Patient is relatively comfortable. He complains of swelling and pain in his right arm and related to an old IV site. Medications: Reviewed: Yes Medication Review Details: Of note he is on 3 - chronotropic's and his heart rate is still 100 on an esmolol drip. Vitals/I&O/Wt Last Vital Signs Temp 98.5 F 08/09/21 04:01 Pulse 136 H 08/09/21 08:25 Resp 15 08/09/21 06:31 BP 156/130 08/09/21 06:31 Pulse Ox 91 08/09/21 06:31 08/08/21 08/09/21 08/09/21 22:59 06:59 14:59 Intake Total 1110 / 4537.008 750.031 / 5287.039 580 / 580 Output Total 1400 / 1950 1075 / 3025 Balance -290 / 2587.008 -324.969 / 2262.039 580 / 580 Weight last 48 hrs Weight 466 lb Physical Exam Narrative: When I walk in the room, he is asleep sitting up in his chair. His head is bobbing back and forth in his sleep. Resp: COMMON NORMALS: normal respiratory effort, No retractions, No use of accessory muscles, clear to auscultation bilaterally and percussion normal AUSCULTATION: clear to auscultation bilaterally PERCUSSION: percussion normal Cardio: OTHER: His heart rate is fast and very distant. His heart rate is noted to be between 100 and 110 Data : 08/09/21 04:19 08/09/21 04:19 Micro: Microbiology 08/06/21 13:55 Urine Culture - Preliminary Urine,Clean Catch A&P Assessment and plan (1) LV dysfunction: I will continue to to take my cues from cardiology as they are managing his medicines. He was noted to have a possible LV clot on GUS so cardioversion has not been possible. We will continue to diurese, and slow his heart down. He is on Eliquis for anticoagulation. Status: Acute (2) CHF (congestive heart failure): Status: Acute (3) Obstructive sleep apnea: Status: Acute (4) Diabetes mellitus type 2 in obese: Status: Acute (5) Atrial flutter with rapid ventricular response: Status: Acute (6) Hypertension: Status: Acute Attestations Medical Necessity Statement*: As long as he is on on IV drips and is still unstable, he will need to stay here and will likely be here through 2 midnights. Coding Level of Care Code Acute Geospatial Technologist for Tomeka Sanz Diagnoses LV dysfunction I51.9 CHF (congestive heart failure) I50.9 Obstructive sleep apnea G47.33 Diabetes mellitus type 2 in obese E11.69; E66.9 Atrial flutter with rapid ventricular response I48.92 Hypertension I10
--- NOTE | 2021-08-09 11:06 | PM.PN ---
Subjective Subjective: Patient is diuresing well however denies heart rate is not under control. Vitals/I&O/Wt Last Vital Signs Temp 98.5 F 08/09/21 04:01 Pulse 136 H 08/09/21 08:25 Resp 15 08/09/21 06:31 BP 156/130 08/09/21 06:31 Pulse Ox 91 08/09/21 06:31 08/08/21 08/09/21 08/09/21 22:59 06:59 14:59 Intake Total 1110 / 4537.008 750.031 / 5287.039 580 / 580 Output Total 1400 / 1950 1075 / 3025 Balance -290 / 2587.008 -324.969 / 2262.039 580 / 580 Weight last 48 hrs Weight 466 lb Physical Exam Cardio: OTHER: GENERAL: Patient is alert, awake and oriented x3. He is sitting comfortably NECK: No jugular vein distension. HEENT: No cyanosis. No icterus. No pallor. HEART: Irregularly rate S1 and S2. No murmur, rub or gallop. LUNGS: Clear to auscultate bilaterally. ABDOMEN: Soft, nontender and nondistended. Positive bowel sounds. No guarding, rebound or tenderness. CENTRAL NERVOUS SYSTEM: Grossly nonfocal. EXTREMITIES: Lower extremities with 1+ edema bilaterally. Data : 08/09/21 04:19 08/09/21 04:19 Micro: Microbiology 08/06/21 13:55 Urine Culture - Preliminary Urine,Clean Catch A&P Assessment and plan (1) Atrial flutter with rapid ventricular response: Not monitoring Cardizem was stopped due to negative inotropic however patient is out of decompensated state. I will increase digoxin to 0.25 mg We will check dig level in the morning patient is on esmolol and metoprolol I will stop esmolol and may have to put him back on Cardizem as I do not have a choice patient has haziness/smoke in the left atrium suspicious for possible thrombus, I will continue with Eliquis. At this point would not like to cardiovert him either chemically or electrically, we need to give him few more weeks. Due to structural problem if you have more medicines are out of question, sotalol cannot be given in heart failure. If patient does not get under control I will start patient on Cardizem Status: Acute (2) CHF (congestive heart failure): Getting compensated and improving Status: Acute (3) LV dysfunction: Appear to be severely depressed, Status: Acute (4) Hypertension: Well-controlled now Status: Acute Attestations Medical Necessity Statement*: Patient require continuation hospitalization for above defined care Coding Level of Care Code Established Pt Acute Diesel Engine Mechanic for Raquelg Fwd Patient Type Established History Detailed Exam Detailed Medical Decision Making Moderate Complexity Diagnoses Atrial flutter with rapid ventricular response I48.92 CHF (congestive heart failure) I50.9 LV dysfunction I51.9 Hypertension I10
[2021-08-09] MEDS: HYDROcodone-acetaminophen 5-325 mg Tablet 1 TAB PO ×2 (11:37→18:30)
[2021-08-09 11:45] LABS: Glucose Point of Care 132 mg/dL (70-110)
[2021-08-09] MEDS: dilTIAZem 60 mg Tablet PO ×2 (14:08→20:17)
[2021-08-09] MEDS: cefTRIAXone 1,000 MG in sodium chloride 0.9% (plus) 50 ML 100 MG IV (14:08)
[2021-08-09 17:19] LABS: Glucose Point of Care 124 mg/dL (70-110)
[2021-08-09 18:39] LABS: Basophils # 0.1 10^3/uL (0.0-0.1); Basophils % 0.3 %; Eosinophils # 0.4 10^3/uL (0.0-0.8); Eosinophils % 2.2 %; Hematocrit 44.1 % (42.0-52.0); Lymphocytes # 2.2 10^3/uL (0.8-4.8); Lymphocytes % 12.4 %; Mean Corpuscular HGB Conc 31.7 g/dL (30.0-36.0); Mean Corpuscular Hemoglobin 30.6 pg (28.0-34.0); Mean Corpuscular Volume 96.3 fl (80-94); Mean Platelet Volume 11.6 fL (7.4-10.4); Monocytes # 1.1 10^3/uL (0.2-0.9); Monocytes % 6.3 %; Neutrophils # 14.14 10^3/uL (1.8-7.7); Neutrophils % 78.3 %; Nucleated Red Blood Cells % 0 %; Platelet Count 292 10^3/cmm (130-400); Red Blood Count 4.58 10^6/uL (4.1-5.3); Red Cell Distribution Width 14.5 % (12.1-15.1); White Blood Count 18.1 10^3/uL (4.0-10.0)
[2021-08-09 19:24] LABS: Alanine Aminotransferase 43 U/L (0-41); Albumin Level 3.7 g/dL (3.5-5.2); Alkaline Phosphatase 69 IU/L (40-130); Aspartate Amino Transferase 29 U/L (0-40); Blood Urea Nitrogen 18 mg/dL (6-20); Calcium 8.5 mg/dL (8.5-10.5); Carbon Dioxide 23 mmol/L (22-29); Chloride 102 mmol/L (98-107); Glomerular Filtration Rate 105.5 mL/min (90-130); Glucose 137 mg/dL (65-115); Osmolality Calculated 288 mOsm/kg (285-295); Sodium 137 mmol/L (136-145); Total Bilirubin 0.4 mg/dL (0.15-1.2); Total Protein 6.7 g/dL (6.6-8.7)
[2021-08-09 19:38] LABS: Anion Gap 16.3 (5-19); Potassium 4.3 mmol/L (3.5-5.1)
[2021-08-09 20:01] LABS: Glucose Point of Care 158 mg/dL (70-110)
[2021-08-09] MEDS: acetaminophen 325 mg Tablet 650 MG PO (23:04)
[2021-08-10] VITALS (20 sets, daily range): BP systolic 112–176; BP diastolic 88–120; PULSE 63–92; RESP 16–21; TEMP 36.7–37; O2SAT 97; BMI 63.2
[2021-08-10 04:47] LABS: Basophils # 0.1 10^3/uL (0.0-0.1); Basophils % 0.5 %; Eosinophils # 0.4 10^3/uL (0.0-0.8); Eosinophils % 2.3 %; Hematocrit 46.1 % (42.0-52.0); Hemoglobin 14.5 g/dL (11.7-16.6); Lymphocytes # 2.5 10^3/uL (0.8-4.8); Lymphocytes % 14.8 %; Mean Corpuscular HGB Conc 31.5 g/dL (30.0-36.0); Mean Corpuscular Hemoglobin 30.7 pg (28.0-34.0); Mean Corpuscular Volume 97.5 fl (80-94); Mean Platelet Volume 11.6 fL (7.4-10.4); Monocytes # 1.3 10^3/uL (0.2-0.9); Monocytes % 7.7 %; Neutrophils # 12.69 10^3/uL (1.8-7.7); Neutrophils % 74.1 %; Nucleated Red Blood Cells % 0 %; Platelet Count 277 10^3/cmm (130-400); Red Blood Count 4.73 10^6/uL (4.1-5.3); Red Cell Distribution Width 14.5 % (12.1-15.1); White Blood Count 17.1 10^3/uL (4.0-10.0)
[2021-08-10 04:58] LABS: Alanine Aminotransferase 40 U/L (0-41); Albumin Level 3.8 g/dL (3.5-5.2); Alkaline Phosphatase 70 IU/L (40-130); Aspartate Amino Transferase 25 U/L (0-40); Blood Urea Nitrogen 17 mg/dL (6-20); Calcium 8.2 mg/dL (8.5-10.5); Carbon Dioxide 26 mmol/L (22-29); Chloride 99 mmol/L (98-107); Globulin 2.7 g/dL (1.3-4.6); Glomerular Filtration Rate 105.5 mL/min (90-130); Glucose 123 mg/dL (65-115); Osmolality Calculated 289 mOsm/kg (285-295); Sodium 138 mmol/L (136-145); Total Bilirubin 0.4 mg/dL (0.15-1.2); Total Protein 6.5 g/dL (6.6-8.7)
[2021-08-10] MEDS: FUROsemide 10 mg/mL SDV 10mL 60 MG IVP ×2 (06:13→15:24)
[2021-08-10] MEDS: apixaban 5 mg Tablet PO ×2 (08:39→17:45)
[2021-08-10] MEDS: dilTIAZem 60 mg Tablet PO ×3 (08:39→21:23)
[2021-08-10] MEDS: atorvastatin 40 mg Tablet 20 MG PO (08:39)
[2021-08-10] MEDS: potassium chloride ER 20 mEq Tablet 40 MEQ PO ×2 (08:39→17:45)
[2021-08-10] MEDS: pantoprazole DR 40 mg Tablet PO (08:41)
[2021-08-10] MEDS: metoprolol tartrate 50 mg Tablet 100 MG PO ×2 (08:42→21:22)
--- NOTE | 2021-08-10 10:53 | PM.PN ---
Subjective Subjective: Patient states that he seemed pretty good this morning. He continues to lose more fluid than he gains. Cardiology has adjusted his rate control medicines, of which he is on 3 at this point. His heart rate is 106 this morning, and it looks like cardiology raised his digoxin dose. He does not exhibit any signs of bleeding. Medications: Reviewed: Yes Vitals/I&O/Wt Last Vital Signs Temp 98.6 F 08/10/21 07:44 Pulse 75 08/10/21 07:44 Resp 19 H 08/10/21 06:00 BP 167/118 08/10/21 07:44 Pulse Ox 89 L 08/09/21 22:00 08/09/21 08/10/21 08/10/21 22:59 06:59 14:59 Intake Total 620.000 / 1870.000 400 / 2270.000 400 / 400 Output Total 1200 / 3250 1450 / 4700 650 / 650 Balance -580.000 / -1380.000 -1050 / -2430.000 -250 / -250 Weight last 48 hrs Weight 466 lb 5 oz Weight 466 lb Physical Exam Narrative: He is comfortable, sitting upright in a chair. Resp: OTHER: Distant breath sounds Cardio: OTHER: Tachyarrhythmic and irregular, distant heart sounds. Data : 08/10/21 04:18 08/10/21 04:18 Micro: Microbiology 08/06/21 13:55 Urine Culture - Final Urine,Clean Catch A&P Assessment and plan (1) LV dysfunction: Status: Acute (2) CHF (congestive heart failure): Status: Acute (3) Atrial flutter with rapid ventricular response: Status: Acute Attestations Medical Necessity Statement*: He needs to be in the hospital for monitoring of his heart rate. Coding Level of Care Code Acute Crime Scene Photographer for Tomeka Fwcece Diagnoses LV dysfunction I51.9 CHF (congestive heart failure) I50.9 Atrial flutter with rapid ventricular response I48.92
[2021-08-10 11:44] LABS: Glucose Point of Care 135 mg/dL (70-110)
[2021-08-10] MEDS: digoxin 250 mcg Tablet PO (11:49)
[2021-08-10] MEDS: cefTRIAXone 1,000 MG in sodium chloride 0.9% (plus) 50 ML 100 MG IV (14:23)
[2021-08-10 17:32] LABS: Glucose Point of Care 117 mg/dL (70-110)
[2021-08-10] MEDS: hydroCHLOROthiazide 25 mg Tablet PO (17:45)
[2021-08-10] MEDS: HYDROcodone-acetaminophen 5-325 mg Tablet 1 TAB PO ×2 (18:11→23:23)
--- NOTE | 2021-08-10 18:23 | PC.NURSE ---
Shift Note Frequent safety and comfort rounds continue. Orders and/or nursing care completed as indicated. Patient monitored for response to intervention and treatment(s). Education provided includes lasix. Patient and/or telephone claims representative verbalize understanding. Will continue to monitor. Pt HR has remained under 90 this afternoon. New IV started using US to left forearm. Pt did complain of right arm pain. He took one [place] and placed a warm compress on it. No redness noted, there is some slight swelling.
[2021-08-10] MEDS: insulin lispro 100 unit/1 mL SUBCUT (21:23)
[2021-08-10 21:31] LABS: Glucose Point of Care 148 mg/dL (70-110)
--- NOTE | 2021-08-10 22:51 | P.PN_ITS ---
Subjective Subjective: Continues to diurese well. He appeared to be near euvolemic now heart rate is under control. Medications: Reviewed: Yes Medication Review Details: Of note he is on 3 - chronotropic's and his heart rate is still 100 on an esmolol drip. Vitals/I&O/Wt Last Vital Signs Temp 98.0 F 08/10/21 22:00 Pulse 68 08/10/21 22:00 Resp 18 08/10/21 22:00 BP 150/90 08/10/21 22:00 Pulse Ox 97 08/10/21 22:00 08/10/21 08/10/21 08/10/21 06:59 14:59 22:59 Intake Total 400 / 2270.000 400 / 400 460 / 860 Output Total 1450 / 4700 650 / 650 3100 / 3750 Balance -1050 / -2430.000 -250 / -250 -2640 / -2890 Weight last 48 hrs Weight 466 lb 5 oz Weight 466 lb Physical Exam Cardio: OTHER: GENERAL: Patient is alert, awake and oriented x3. He is sitting comfortably NECK: No jugular vein distension. HEENT: No cyanosis. No icterus. No pallor. HEART: Regularrate S1 and S2. No murmur, rub or gallop. LUNGS: Clear to auscultate bilaterally. ABDOMEN: Soft, nontender and nondistended. Positive bowel sounds. No guarding, rebound or tenderness. CENTRAL NERVOUS SYSTEM: Grossly nonfocal. EXTREMITIES: Lower extremities with trace edema bilaterally. Data : 08/10/21 04:18 08/10/21 04:18 A&P Assessment and plan (1) Atrial flutter with rapid ventricular response: Rate controlled, continue beta-danis, calcium channel danis and digoxin. Continue Eliquis. Status: Acute (2) CHF (congestive heart failure): Well compensated now I will switch patient to Lasix 60 mg in the morning and 20 Peyton gram at 1400 by mouth, I will switch to 20 meq twice a day of potassium chloride. Advised to keep log of blood pressures daily weight. Patient has been advised regarding left heart cath in order to rule out ischemia versus nonischemic cardiomyopathy. He says he has to go home and go for he would not like to stay for it here and would like to perform it later. He understand the consequences regarding worsening of heart failure arrhythmia myocardial infarction and worst-case scenario . He would like to go for left heart cath as an outpatient. Patient has been also discussed regarding LifeVest. He says he will get it fit at home and would not like to wait for it. He understand the consequences and risk for sudden cardiac arrhythmia while waiting for it. I am planning to discharge him tomorrow. He will be fo llow-up with cardiology in 7 days and left heart cath as an outpatient over next few days. Since I will not be any more affiliated with the hospital as my last day would be 12 August, I will transfer his care to Dr. Moy as an outpatient for left heart cath. Further plan will be devised as per progress of the patient. Status: Acute (3) LV dysfunction: Severely depressed LV function. Continue to optimize medicine as above continue beta-danis and STEVE inhibitor continue diuretics. Will add lisinopril 5 mg p.o. daily Status: Acute (4) Hypertension: Well-controlled now Status: Acute Attestations Medical Necessity Statement*: Most likely discharge tomorrow morning patient require continuation hospitalization for 24 hours more. Coding Level of Care Code Established Pt Acute Ui Application Developer for Tomeka Fwcece Patient Type Established History Detailed Exam Detailed Medical Decision Making Moderate Complexity Diagnoses Atrial flutter with rapid ventricular response I48.92 CHF (congestive heart failure) I50.9 LV dysfunction I51.9 Hypertension I10
[2021-08-11] VITALS (10 sets, daily range): BP systolic 128–159; BP diastolic 65–111; PULSE 67–97; RESP 15–18; TEMP 36.5; O2SAT 92–98; BMI 63.2
[2021-08-11 04:56] LABS: Basophils # 0.1 10^3/uL (0.0-0.1); Basophils % 0.4 %; Eosinophils # 0.5 10^3/uL (0.0-0.8); Eosinophils % 3.1 %; Hematocrit 45.3 % (42.0-52.0); Hemoglobin 14.8 g/dL (11.7-16.6); Lymphocytes # 2.6 10^3/uL (0.8-4.8); Lymphocytes % 15.9 %; Mean Corpuscular HGB Conc 32.7 g/dL (30.0-36.0); Mean Corpuscular Hemoglobin 30.6 pg (28.0-34.0); Mean Corpuscular Volume 93.6 fl (80-94); Monocytes # 1.1 10^3/uL (0.2-0.9); Monocytes % 7.1 %; Neutrophils # 11.61 10^3/uL (1.8-7.7); Neutrophils % 72.7 %; Nucleated Red Blood Cells % 0 %; Platelet Count 269 10^3/cmm (130-400); Red Blood Count 4.84 10^6/uL (4.1-5.3)
[2021-08-11] MEDS: FUROsemide 10 mg/mL SDV 10mL 60 MG IVP (05:08)
[2021-08-11 06:41] LABS: Glucose Point of Care 123 mg/dL (70-110)
[2021-08-11] MEDS: dilTIAZem 60 mg Tablet PO (08:03)
[2021-08-11] MEDS: apixaban 5 mg Tablet PO (08:04)
[2021-08-11] MEDS: hydroCHLOROthiazide 25 mg Tablet PO (08:04)
[2021-08-11] MEDS: atorvastatin 40 mg Tablet 20 MG PO (08:04)
[2021-08-11] MEDS: metoprolol tartrate 50 mg Tablet 100 MG PO (08:04)
[2021-08-11] MEDS: lisinopril 5 mg Tablet PO (08:04)
[2021-08-11] MEDS: pantoprazole DR 40 mg Tablet PO (08:04)
[2021-08-11] MEDS: digoxin 250 mcg Tablet PO (08:04)
[2021-08-11] MEDS: potassium chloride ER 20 mEq Tablet 40 MEQ PO (08:05)
--- NOTE | 2021-08-11 10:03 | PC.CHAP ---
Pastoral Care Encounter/Spiritual Assessment Type of Contact [] Declined well service floorperson visit [] Patient/Family/Request visit [] Outpatient visit [] Follow-up visit [] Physician referral [] Code/Alert [x] Routine visit [] Staff referral [] Actively dying [] Patient sleeping [] Family support [] [] Out of room [] Palliative care [] [] Receiving care in room [] Pre-surgical visit [] Trauma [] Long length of stay [] ICU visit [x] Other: patinet transfered from ICU last night....preparing to go home today.... Relational/Emotional Strength [] Patient feels connected with others/family/visitors/staff [] Distress [] Loneliness/isolation [] Abandonment Spirituality of Patient [] Person of Kathleen [] Attends Buddhism of their Kathleen [] Believes in Prayer [] Reads Bible or Cheondoism materials [] There are Spiritual issues to be addressed Electromedical Equipment Repairer Interventions [x] Prayer [x] Active listening [x] Non-anxious presence [x] Spiritual/emotional support [] Crisis/trauma care [] Spiritual counseling [] Bereavement support [] Provided bereavement packet [] Provided Bible/devotional materials [] Provided toy/stuffed animal, coloring book to patient or family member [] Provided Communion [] Anointing/[place] [] Salvation [x] Completed spiritual assessment [] Other: Impact on Illness or Injury [] Angry [] Fearful [] Anxious [] Often cries [] Exhaustion [] Unable to work [] Unable to attend christianity [] Unable to walk/stand [] Unable to read [] Unable to drive [] Unable to eat/drink [] Unable to sleep [] Unable to be with family [] Patient intubated [] Other: Summary Time spent with patient 10 min
[2021-08-11 10:38] LABS: Anion Gap 14.6 (5-19); Blood Urea Nitrogen 14 mg/dL (6-20); Calcium 8.3 mg/dL (8.5-10.5); Carbon Dioxide 31 mmol/L (22-29); Chloride 96 mmol/L (98-107); Glomerular Filtration Rate 123.1 mL/min (90-130); Glucose 136 mg/dL (65-115); Osmolality Calculated 289 mOsm/kg (285-295); Potassium 3.6 mmol/L (3.5-5.1); Sodium 138 mmol/L (136-145)
[2021-08-11 10:39] LABS: Digoxin 0.8 ng/mL (0.6-1.2)
--- NOTE | 2021-08-11 10:41 | PM.DCS ---
Discharge Providers Date of Admission: 08/06/21 14:33 Date of Discharge: August 11, 2021 Attending Provider at Admission: Judy Clark MD Attending Provider at Discharge: Carlos Serrano MD Diagnoses at Discharge Discharge Diagnosis (1) Atrial flutter with rapid ventricular response: Status: Acute (2) CHF (congestive heart failure): Status: Acute (3) LV dysfunction: Status: Acute (4) Hypertension: Status: Acute Reason for Visit Reason for Visit: SOB, Possible Upper respiratory Hospital Course Hospital Course Franco is a 41-year-old white male who presented to the hospital with shortness of breath. He denied any chest discomfort. He was found to be in atrial flutter with rapid ventricular rate. Cardizem IV did not provide significant benefit. He was ultimately put on esmolol in the ICU, and digoxin and Cardizem by mouth were added. He was also converted to metoprolol p.o. He was diuresed for acute diastolic heart failure. He was anticoagulated with Eliquis. GUS was performed with thought of cardioversion, unfortunately haziness in left appendage was suspicious for clot formation and this was aborted. Estimated ejection fraction was 25% with moderate mitral regurgitation. The rest of his hospital stay medication was adjusted for his heart failure, and heart rate. By August 11 he reported he wanted to go home. He was off esmolol and heart rate was controlled in the 80s on current medication. He had refused to stay for a LifeVest, and this will be set up as an outpatient through cardiology. He had also refused an angiogram, reporting he would follow-up for this as an outpatient. He was therefore discharged home on August 11. There was concern of UTI on admission, although urine culture did not grow an organism. He will not need antibiotics on discharge. Physical Exam Narrative: General exam no distress Neck is supple Cardiovascular irregular, 2/6 systolic murmur Lungs clear with diminished breath sounds bibasilar Abdomen is soft nontender Extremities 1+ edema Discharge Data Studies Completed and Pending Completed Studies During Hospitalization Category Date Time Status XR chest 1V portable [id number] Stat Exams 08/06/21 10:35 Completed CV. echo wo/w contrast [id number] Routine Ultrasound 08/07/21 Completed Pending at discharge Category Date Time Status Basic Metabolic Panel Routine Lab 08/11/21 09:47 Results US echo GUS [CV. echo transesophageal [id number]] Routine Ultrasound 08/08/21 07:00 Taken Radiology Impressions Chest X-Ray 08/06/21 10:35 IMPRESSION: Lung opacities which are most compatible with subacute pneumonitis. Laboratory Results WBC 16.0 10^3/uL (4.0-10.0) H 08/11/21 04:02 RBC 4.84 10^6/uL (4.1-5.3) 08/11/21 04:02 Hgb 14.8 g/dL (11.7-16.6) 08/11/21 04:02 Hct 45.3 % (42.0-52.0) 08/11/21 04:02 MCV 93.6 fl (80-94) 08/11/21 04:02 MCH 30.6 pg (28.0-34.0) 08/11/21 04:02 MCHC 32.7 g/dL (30.0-36.0) 08/11/21 04:02 RDW 15.0 % (12.1-15.1) 08/11/21 04:02 Plt Count 269 10^3/cmm (130-400) 08/11/21 04:02 MPV 12.0 fL (7.4-10.4) H 08/11/21 04:02 Neut % (Auto) 72.7 % 08/11/21 04:02 Lymph % (Auto) 15.9 % 08/11/21 04:02 [place] % (Auto) 7.1 % 08/11/21 04:02 Eos % (Auto) 3.1 % 08/11/21 04:02 Baso % (Auto) 0.4 % 08/11/21 04:02 Neut # (Auto) 11.61 10^3/uL (1.8-7.7) H 08/11/21 04:02 Lymph # (Auto) 2.6 10^3/uL (0.8-4.8) 08/11/21 04:02 [place] # (Auto) 1.1 10^3/uL (0.2-0.9) H 08/11/21 04:02 Eos # (Auto) 0.5 10^3/uL (0.0-0.8) 08/11/21 04:02 Baso # (Auto) 0.1 10^3/uL (0.0-0.1) 08/11/21 04:02 Nucleated RBC % (auto) 0 % 08/11/21 04:02 Nucleated RBCs # 0.0 /100WBC 08/11/21 04:02 Sodium 138 mmol/L (136-145) 08/11/21 09:47 Potassium 3.6 mmol/L (3.5-5.1) 08/11/21 09:47 Chloride Cancelled 08/11/21 04:02 Carbon Dioxide Cancelled 08/11/21 04:02 Anion Gap 14.6 (5-19) 08/11/21 09:47 BUN 14 mg/dL (6-20) 08/11/21 09:47 Creatinine 0.7 mg/dL (0.7-1.2) 08/11/21 09:47 GFR Calculation 123.1 mL/min (90-130) 08/11/21 09:47 Glucose Cancelled 08/11/21 04:02 POC Glucose 123 mg/dL (70-110) H 08/11/21 06:34 Calculated Osmolality 289 mOsm/kg (285-295) 08/11/21 09:47 Calcium Cancelled 08/11/21 04:02 Magnesium 2.0 mg/dL (1.7-2.3) 08/09/21 04:19 Total Bilirubin 0.4 mg/dL (0.15-1.2) 08/10/21 04:18 AST 25 U/L (0-40) 08/10/21 04:18 ALT 40 U/L (0-41) 08/10/21 04:18 Alkaline Phosphatase 70 IU/L (40-130) 08/10/21 04:18 Creatine Kinase 148 U/L (39-308) 08/06/21 13:02 Troponin T Baseline 45 ng/L (0-15) H 08/06/21 13:55 Troponin T 120 Minute 47.09 ng/L (0-15) H 08/06/21 15:25 Delta Troponin T 2.09 ABS# (0-10) 08/06/21 15:25 Troponin T Hi Sens 6Hr 54.52 ng/L (0-15) H 08/06/21 19:45 Troponin T Hi Sens 6Hr Delta 9.52 ng/L (0-12) 08/06/21 19:45 NT-Pro-B Natriuret Pep 1646 pg/mL (0-125) H 08/06/21 13:55 Total Protein 6.5 g/dL (6.6-8.7) L 08/10/21 04:18 Albumin 3.8 g/dL (3.5-5.2) 08/10/21 04:18 Globulin 2.7 g/dL (1.3-4.6) 08/10/21 04:18 Procalcitonin 0.05 ng/mL (0-0.5) 08/06/21 13:55 TSH 3.62 uIU/mL (0.27-4.20) 08/06/21 13:55 Urine Color Yellow (Yellow) 08/06/21 13:55 Urine Appearance Cloudy (CLEAR) 08/06/21 13:55 Urine pH 5 (5-7) 08/06/21 13:55 Ur Specific [place] 1.020 (1.005-1.030) 08/06/21 13:55 Urine Protein 3+ (Negative) H 08/06/21 13:55 Urine Glucose (UA) Norm (Normal) 08/06/21 13:55 Urine Ketones Negative (Negative) 08/06/21 13:55 Urine Blood 2+ (Negative) H 08/06/21 13:55 Urine Nitrate Negative (Negative) 08/06/21 13:55 Urine Bilirubin Neg (Negative) 08/06/21 13:55 Urine Urobilinogen Neg mg/dL (Negative) 08/06/21 13:55 Ur Leukocyte Esterase 2+ (Negative) H 08/06/21 13:55 Urine RBC 5-10 /hpf (0-2) H 08/06/21 13:55 Urine WBC >100 /hpf (0-5) H 08/06/21 13:55 Ur Squamous Epith Cells 0-4 /hpf (0-5) H 08/06/21 13:55 Amorphous Sediment Not Reportable 08/06/21 13:55 Urine Bacteria 2+ /hpf (NONE) H 08/06/21 13:55 Digoxin 0.8 ng/mL (0.6-1.2) 08/11/21 09:47 Coronavirus 229E (PCR) Not detected (NOT DETECT) 08/06/21 14:15 SARS-CoV-2 (PCR) Not detected (NOT DETECT) 08/06/21 14:15 Vitals Last Vital Signs Temp 97.7 F 08/11/21 06:49 Pulse 86 08/11/21 09:52 Resp 18 08/11/21 09:52 BP 134/73 08/11/21 09:52 Pulse Ox 98 08/11/21 09:52 Discharge Plan Discharge Patient Disposition: Home Condition: Stable Prescriptions: New diltiazem HCl 60 mg Tablet 60 mg PO TID Qty: 90 0RF lisinopril 5 mg Tablet 5 mg PO DAILY Qty: 30 0RF pantoprazole 40 mg Tablet,Delayed Release (Dr/Ec) 40 mg PO DAILY Qty: 30 0RF Eliquis 5 mg Tablet 5 mg PO BID Qty: 60 0RF metoprolol tartrate 50 mg Tablet 100 mg PO BID@0900,2100 Qty: 120 0RF digoxin 250 mcg (0.25 mg) Tablet 250 mcg PO DAILY Qty: 30 0RF furosemide [Lasix] 20 mg tablet 60 mg PO QAM Qty: 120 0RF Rx Instructions: 60 mg in the morning, 20 mg at 1600 potassium chloride 20 mEq tablet extended release 20 meq PO BID Qty: 60 0RF Continued atorvastatin [Lipitor] 20 mg Tablet 20 mg PO DAILY 0RF metformin 1,000 mg Tablet 1,000 mg PO BID 0RF hydrochlorothiazide 25 mg Tablet 25 mg PO BID 0RF Discontinued losartan 100 mg Tablet 100 mg PO DAILY 0RF Discharge Orders: Discharge Order (Routine); Ordered 08/11/21 Ordered By: Carlos Serrano Referrals: Teagan Arceo MD [Physician] - 1 week (May see ayse García on follow-up.) Berna Varela FNP [Nurse Practitioner] - 4-7 days (Patient will need new patient appointment @ discharge. ) Discharge Diet: Cardiac and Diabetic Discharge Activity: Increase activity as tolerated Patient Instructions: Opioid Safety Activity Restrictions/Additional Instructions: Take all medicine as prescribed BMP within 1 week Get LifeVest fitted per cardiology Discharge Attestations Time Spent in Discharge Care*: greater than 30 min Quality Metrics Clinical Quality Measures [ No reported AMI, CVA or VTE this stay] Coding Level of Care Code Acute Chg FW DC note Diagnoses Atrial flutter with rapid ventricular response I48.92 CHF (congestive heart failure) I50.9 LV dysfunction I51.9 Hypertension I10
[2021-08-11 11:38] LABS: Glucose Point of Care 134 mg/dL (70-110)
== END 2021-08-11 12:30 | disposition home or self-care (01) | DRG 308 ==
LOC: ER 12:52 → ICU 18:42 → CSU 08-10 20:46
PROVIDERS: Internal Medicine; Internal Medicine Cardiovascular Disease; Admitting Provider Hospitalist; Emergency Provider Family Medicine; Visit Provider Internal Medicine
PROC: B24BZZ4 Ultrasonography of Heart with Aorta, Transesophageal (ICD-10-PCS; CPT 93312; principal; 2021-08-08 07:00)
DX: I48.92 Unspecified atrial flutter (principal); I50.31 Acute diastolic (congestive) heart failure; Z68.44 Body mass index [BMI] 60.0-69.9, adult; I34.0 Nonrheumatic mitral (valve) insufficiency; E66.01 Morbid (severe) obesity due to excess calories; E11.9 Type 2 diabetes mellitus without complications; G47.33 Obstructive sleep apnea (adult) (pediatric); I11.0 Hypertensive heart disease with heart failure; E78.5 Hyperlipidemia, unspecified; F17.200 Nicotine dependence, unspecified, uncomplicated; Z53.8 Procedure and treatment not carried out for other reasons; I51.3 Intracardiac thrombosis, not elsewhere classified; Z79.84 Long term (current) use of oral hypoglycemic drugs
CPT/HCPCS: 36415; 36416; 71045; 80048; 80053; 80162; 81001; 82550; 82962; 83735; 83880; 84145; 84443; 84484; 85025; 87086; 87635; 93005; 93312; 93320; 93325; 94660; 96365; 96367; 96372; 96375; 99285; C8929; J0696; J1160; J1815; J1940; J2704; J3490; J7030; Q3014; Q9956

== ENCOUNTER 2021-09-20 06:01 | Inpatient (IN) | payer MEDICAID, SELFPAY ==
[2021-09-20] VITALS (76 sets, daily range): BP systolic 107–185; BP diastolic 72–118; PULSE 71–137; RESP 12–33; TEMP 36.9–37.2; O2SAT 84–97; BMI 63.7
--- NOTE | 2021-09-20 06:13 | ECG_ITS ---
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 Measurements Intervals [place] Rate: 136 P: [place]: QRS: 112 QRSD: 78 T: 16 QT: 204 QTc: 307 Interpretive Statements ATRIAL FLUTTER WITH RAPID VENTRICULAR RESPONSE POSSIBLE RIGHT VENTRICULAR HYPERTROPHY [SOME/ALL OF: PROMINENT R IN V1, LATE TRANSITION, RAD, TEMO, SSS] ANTEROSEPTAL MYOCARDIAL INFARCTION , OF INDETERMINATE AGE [40+ ms Q WAVE IN V1-V4] Compared to ECG 08/06/2021 16:31:46 Right-axis deviation no longer present Myocardial infarct finding still present Electronically Signed On 09-20-2021 9:05:07 CDT by Eagle Moy M.D. [id number]
--- NOTE | 2021-09-20 06:27 | XRR_ITS ---
PROCEDURE INFORMATION: Exam: XR Chest Exam date and time: 09/20/2021 7:19 AM Age: 41 years old Clinical indication: Pain; On breathing; Additional info: Cp TECHNIQUE: Imaging protocol: XR of the chest. Views: 1 view. Total images: 1 COMPARISON: CR XR chest 1V portable [id number] 08/06/2021 10:43 AM FINDINGS: Lungs: No acute focal pulmonary opacities are detected. Pleural spaces: Unremarkable. No pleural effusion. No pneumothorax. Heart/Mediastinum: Heart is enlarged but stable when compared to the prior exam. Bones/joints: Unremarkable. XR/XR chest 1V portable [id number] IMPRESSION: 1. Heart is enlarged but stable when compared to the prior exam. 2. No acute focal pulmonary opacities are detected.
--- NOTE | 2021-09-20 06:49 | ED_ITS ---
HPI - Arrhythmia/Palpitations General: Chief Complaint: Shortness of Breath/Dyspnea Stated Complaint: afib and trouble breathing Time Seen by Provider: 09/20/21 06:27 Source: patient Mode of arrival: ambulatory Limitations: no limitations History of Present Illness: 41-year-old male presents emergency room complaining of shortness of breath swelling in his legs orthopnea rapid heart rate. Is been going on for 3 days. He had gone to refill his medication and evidently his pharmacy had closed and gone out of business and he was not able to get his medicines from anywhere else. He has a known history of atrial fibrillation is on Eliquis he is on digoxin diltiazem and metoprolol. He has been out of all 3 the last several days evidently. He denies any chest pain but has noticed increasing orthopnea. He is also noticed a rapid heart rate he was hoping to manage it at home but it persisted and worse today. He is noticed significant increase in swelling in his lower extremities during that same timeframe. Little bit of a low-grade fever when he first arrived here he denies any fever sweats or chills he has had a cough and orthopnea but he is not had a productive cough at home. MD complaint: rapid heart beat, heart racing , palpitations, irregular heart beat and atrial fibrillation Onset (ago): day(s) (3) Duration: constant Severity: mild Context: change in medication Arrhythmia history: atrial fibrillation Associated symptoms: Reports cough and short of breath; Deny anxiety, diaphoresis, muscle cramps, nausea, paresthesias, sense of impending doom, syncope or vomiting Review of Systems Const: Denies: fever(s), chills, body aches, change in appetite or diaphoresis ENMT: Denies: throat pain, ear or mastoid pain, nasal discharge or nasal congestion Card: Reports: palpitations, irregular heart rhythm, edema, swelling of feet/ankles, dyspnea on exertion and orthopnea; Denies: chest pain or syncope Resp: Reports: dyspnea and non-productive cough; Denies: productive cough GI: Denies: abdominal pain, nausea or vomiting : Denies: flank pain, difficulty urinating, dysuria, urinary frequency or urinary urgency Musc: Denies: muscle cramps Skin/Breast: Denies: rash or pruritus Psych: Denies: anxiety PFSH ED PFSH: Medical History Atrial flutter with rapid ventricular response BMI 60.0-69.9, adult CHF (congestive heart failure) COPD (chronic obstructive pulmonary disease) Reported Diabetes mellitus type 2 in obese Hyperlipidemia Hypertension Obesity Obstructive sleep apnea Surgical History History of knee surgery Family History Other Dementia Diabetes Social History Smoking and tobacco status: smoker, details unknown cigarettes [ Other cigarette details: States he had just quit] Alcohol intake: current Alcohol intake frequency: holidays/special occasions only Lives independently: Yes Household members: spouse Marital status: Physical Exam Const: GENERAL APPEARANCE: cooperative and comfortable ORIENTATION/CONSCIOUSNESS: Yes awake, Yes oriented to person, Yes oriented to place and Yes oriented to time HENMT: COMMON NORMALS: normocephalic, atraumatic and hearing grossly normal bilaterally HEAD & SCALP: normocephalic and atraumatic Resp: COMMON NORMALS: normal respiratory effort, No retractions and No use of accessory muscles AUSCULTATION: crackles Laterality: bilateral (At bases) Cardio: COMMON NORMALS: No murmurs present (Cardio) RATE: tachycardic RHYTHM: abnormal rhythm irregularly irregular GI: COMMON NORMALS: Soft to palpation and No hepatosplenomegaly present INSPECTION: Yes central obesity AUSCULTATION: Yes normoactive bowel sounds PALPATION: Yes Soft to palpation, No Tenderness to palpation present (GI), No Guarding due to palpation present (GI) and Yes No hepatosplenomegaly present Extremity: COMMON NORMALS: normal to inspection and capillary refill normal GENERAL: Yes edema (2+ edema lower extremities extending to the level of the knees) Neuro: SENSORIUM/ORIENTATION: Yes oriented to person, Yes oriented to place and Yes oriented to time Skin: COMMON NORMALS: no rashes or lesions noted GENERAL SKIN EXAM: no rashes or lesions noted Course Vital Signs: Vital signs: Vital Signs Temperature 98.2 F 09/26/21 07:31 Pulse Rate 66 09/26/21 11:41 Respiratory Rate 20 H 09/26/21 11:41 Blood Pressure 143/89 09/26/21 07:31 Pulse Oximetry 94 09/26/21 09:20 MDM - Arrhythmia/Palpitations Medical Decision Making Patient presents A. fib with RVR with decompensated congestive heart failure given diuretics blockers for rate control admit see notes from the hospitalist orders Medical Records I reviewed the patient's medical records. Lab Data I reviewed the patient's lab results. : 09/25/21 03:34 09/25/21 03:34 Radiology Impressions Chest X-Ray 09/20/21 06:27 IMPRESSION: 1. Heart is enlarged but stable when compared to the prior exam. 2. No acute focal pulmonary opacities are detected. Laboratory Results WBC 13.6 10^3/uL (4.0-10.0) H 09/20/21 07:16 RBC 4.58 10^6/uL (4.1-5.3) 09/20/21 07:16 Hgb 13.3 g/dL (11.7-16.6) 09/20/21 07:16 Hct 40.7 % (42.0-52.0) L 09/20/21 07:16 MCV 88.9 fl (80-94) 09/20/21 07:16 MCH 29.0 pg (28.0-34.0) 09/20/21 07:16 MCHC 32.7 g/dL (30.0-36.0) 09/20/21 07:16 RDW 13.9 % (12.1-15.1) 09/20/21 07:16 Plt Count 230 10^3/cmm (130-400) 09/20/21 07:16 MPV 11.1 fL (7.4-10.4) H 09/20/21 07:16 Neut % (Auto) 74.5 % 09/20/21 07:16 Lymph % (Auto) 13.1 % 09/20/21 07:16 [place] % (Auto) 7.5 % 09/20/21 07:16 Eos % (Auto) 3.8 % 09/20/21 07:16 Baso % (Auto) 0.5 % 09/20/21 07:16 Neut # (Auto) 10.12 10^3/uL (1.8-7.7) H 09/20/21 07:16 Lymph # (Auto) 1.8 10^3/uL (0.8-4.8) 09/20/21 07:16 [place] # (Auto) 1.0 10^3/uL (0.2-0.9) H 09/20/21 07:16 Eos # (Auto) 0.5 10^3/uL (0.0-0.8) 09/20/21 07:16 Baso # (Auto) 0.1 10^3/uL (0.0-0.1) 09/20/21 07:16 Nucleated RBC % (auto) 0 % 09/20/21 07:16 Nucleated RBCs # 0.0 /100WBC 09/20/21 07:16 PT 14.40 SECONDS (12.1-14.9) 09/20/21 07:16 INR 1.08 (0.8-1.2) 09/20/21 07:16 APTT 32.1 SECONDS (23.9-36.7) 09/20/21 07:16 Sodium 136 mmol/L (136-145) 09/20/21 07:16 Potassium 3.8 mmol/L (3.5-5.1) 09/20/21 07:16 Chloride 96 mmol/L (98-107) L 09/20/21 07:16 Carbon Dioxide 29 mmol/L (22-29) 09/20/21 07:16 Anion Gap 14.8 (5-19) 09/20/21 07:16 BUN 10 mg/dL (6-20) 09/20/21 07:16 Creatinine 0.7 mg/dL (0.7-1.2) 09/20/21 07:16 GFR Calculation 123.1 mL/min (90-130) 09/20/21 07:16 Glucose 206 mg/dL (65-115) H 09/20/21 07:16 Calculated Osmolality 287 mOsm/kg (285-295) 09/20/21 07:16 Calcium 9.3 mg/dL (8.5-10.5) 09/20/21 07:16 Total Bilirubin 0.4 mg/dL (0.15-1.2) 09/20/21 07:16 AST 20 U/L (0-40) 09/20/21 07:16 ALT 14 U/L (0-41) 09/20/21 07:16 Alkaline Phosphatase 84 IU/L (40-130) 09/20/21 07:16 Troponin T Baseline 46 ng/L (0-15) H 09/20/21 07:16 Troponin T 120 Minute 62.29 ng/L (0-15) H 09/20/21 09:12 Delta Troponin T 16.29 ABS# (0-10) H* 09/20/21 09:12 NT-Pro-B Natriuret Pep 1591 pg/mL (0-125) H 09/20/21 07:16 Total Protein 6.4 g/dL (6.6-8.7) L 09/20/21 07:16 Albumin 3.9 g/dL (3.5-5.2) 09/20/21 07:16 Globulin 2.5 g/dL (1.3-4.6) 09/20/21 07:16 Digoxin < 0.3 ng/mL (0.6-1.2) L 09/20/21 07:16 Critical Care Time Critical Care Time: Critical Care Time: Yes Total Critical Care Time: 45 Attestation: The high probability of a clinically significant, sudden or life threatening deterioration of the patient's cardiovascular system(s) required my full and direct attention, intervention and personal management. The critical care time is as shown. This time is in addition to time spent performing any reported procedures but includes the following: [x] Data and vital sign review and interpretation [x] Patient assessment, examination and intervention [x] Documentation [x] Medication orders and management Discharge Plan Discharge Patient Disposition: Admitted As Inpatient Admit Provider: Ruben Taveras Clinical Impression: CHF exacerbation, Atrial fibrillation with RVR Condition: Stable Discharge Diet: Cardiac and Diabetic Discharge Activity: Resume usual activity Coding Level of Care Code ED Level Glass Forming Machine Operator for Chg Fwd Exam Detailed
[2021-09-20] MEDS: dilTIAZem 60 mg Tablet PO ×3 (07:26→20:24)
[2021-09-20] MEDS: metoprolol tartrate 50 mg Tablet 100 MG PO ×2 (07:26→20:24)
[2021-09-20] MEDS: metoprolol tartrate 1 mg/1 mL SDV 5 mL 5 MG IVP (07:29)
[2021-09-20 07:34] LABS: INR 1.08 (0.8-1.2)
[2021-09-20 07:35] LABS: Basophils # 0.1 10^3/uL (0.0-0.1); Basophils % 0.5 %; Eosinophils # 0.5 10^3/uL (0.0-0.8); Eosinophils % 3.8 %; Hematocrit 40.7 % (42.0-52.0); Hemoglobin 13.3 g/dL (11.7-16.6); Lymphocytes # 1.8 10^3/uL (0.8-4.8); Lymphocytes % 13.1 %; Mean Corpuscular HGB Conc 32.7 g/dL (30.0-36.0); Mean Corpuscular Volume 88.9 fl (80-94); Mean Platelet Volume 11.1 fL (7.4-10.4); Monocytes % 7.5 %; Neutrophils # 10.12 10^3/uL (1.8-7.7); Neutrophils % 74.5 %; Nucleated Red Blood Cells % 0 %; Partial Thromboplastin Time 32.1 SECONDS (23.9-36.7); Platelet Count 230 10^3/cmm (130-400); Red Blood Count 4.58 10^6/uL (4.1-5.3); Red Cell Distribution Width 13.9 % (12.1-15.1); White Blood Count 13.6 10^3/uL (4.0-10.0)
[2021-09-20] MEDS: FUROsemide 10 mg/mL SDV 10mL 80 MG IVP (07:36)
[2021-09-20 07:44] LABS: Troponin(5th) Baseline 46 ng/L (0-15)
[2021-09-20 07:54] LABS: Alanine Aminotransferase 14 U/L (0-41); Albumin Level 3.9 g/dL (3.5-5.2); Alkaline Phosphatase 84 IU/L (40-130); Anion Gap 14.8 (5-19); Aspartate Amino Transferase 20 U/L (0-40); Blood Urea Nitrogen 10 mg/dL (6-20); Calcium 9.3 mg/dL (8.5-10.5); Carbon Dioxide 29 mmol/L (22-29); Chloride 96 mmol/L (98-107); Globulin 2.5 g/dL (1.3-4.6); Glomerular Filtration Rate 123.1 mL/min (90-130); Glucose 206 mg/dL (65-115); NT Pro B Type Natriuretic Pept 1591 pg/mL (0-125); Osmolality Calculated 287 mOsm/kg (285-295); Potassium 3.8 mmol/L (3.5-5.1); Sodium 136 mmol/L (136-145); Total Bilirubin 0.4 mg/dL (0.15-1.2); Total Protein 6.4 g/dL (6.6-8.7)
[2021-09-20 08:00] LABS: Digoxin < 0.3 ng/mL (0.6-1.2)
--- NOTE | 2021-09-20 08:28 | ECG_ITS ---
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 Measurements Intervals [place] Rate: 106 P: [place]: QRS: 199 QRSD: 82 T: 76 QT: 261 QTc: 346 Interpretive Statements ATRIAL FIBRILLATION WITH RAPID VENTRICULAR RESPONSE POSSIBLE RIGHT VENTRICULAR HYPERTROPHY [SOME/ALL OF: PROMINENT R IN V1, LATE TRANSITION, RAD, TEMO, SSS] ANTEROSEPTAL MYOCARDIAL INFARCTION , PROBABLY OLD [40+ ms Q WAVE IN V1-V4] Compared to ECG 09/20/2021 09:19:51 ST (T wave) deviation no longer present Myocardial infarct finding still present Electronically Signed On 09-22-2021 9:08:03 CDT by Eagle Moy M.D. [id number]
[2021-09-20 09:42] LABS: Troponin 5 2HR 62.29 ng/L (0-15)
[2021-09-20 09:46] LABS: Troponin 5 2HR Delta 16.29 ABS# (0-10)
[2021-09-20] MEDS: digoxin 250 mcg/ml INJ 2 mL IVP (12:22)
--- NOTE | 2021-09-20 12:28 | ECG_ITS ---
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 Measurements Intervals [place] Rate: 91 P: [place]: QRS: 155 QRSD: 88 T: 168 QT: 361 QTc: 445 Interpretive Statements ATRIAL FIBRILLATION POSSIBLE RIGHT VENTRICULAR HYPERTROPHY [SOME/ALL OF: PROMINENT R IN V1, LATE TRANSITION, RAD, TEMO, SSS] POSSIBLE ANTERIOR MYOCARDIAL INFARCTION , PROBABLY OLD [30 ms Q WAVE IN V3/V4, OR R < 0.2 mV IN V4] Compared to ECG 09/20/2021 06:26:25 ST (T wave) deviation now present Electronically Signed On 09-22-2021 9:08:46 CDT by Eagle Moy M.D. [email or web address] [id number]
--- NOTE | 2021-09-20 12:36 | P.HP_ITS ---
Providers/Chief Complaint Admitting Physician: Ruben Taveras Chief Complaint: afib and trouble breathing History of Present Illness 40-year-old gentleman recently with smoking addiction, states he is now since quit, with DM2, HTN, HLD, morbid history, JESUS, atrial fibrillation, congestive heart failure, with EF 25% with recent admission 08/06-08/11, at the time started on anticoagulation for atrial fibrillation, GUS was performed for possible cardioversion, however, with noted haziness in left atrial appendage consideration of cardioversion was deferred. Consideration was given to ischemic versus nonischemic cardiomyopathy, per dictation: Angiography was discussed, but he preferred to set up as outpatient, similarly he did not stay for LifeVest arrangements stating he will get it set up as outpatient. 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 She states his has been on the phone with insurance for 2 hours yesterday, and that they should hear back from them. He states he did not take his medications for 2 days as he ran out. He currently presents to ER with progressive shortness of breath, productive cough, he is not sure if there is any change in color of the sputumas he has been swallowing it. Him presentation he is in A. fib with RVR, heart rate 137, difficult to treat, received both IV and p.o. metoprolol, 5 mg push and 100 mg p.o., received digoxin push as digoxin level was found below detection range, as well as IV push of diltiazem and transiently started on diltiazem drip. He denies chest pain or pressure. Troponin is noted with elevation, baseline 46, 2-hour 62.29. He does report quite a bit of peripheral edema, and recently also edema and stiffness of tissues at the base of his pannus. Review of Systems Const: Denies: fever(s), chills, body aches or malaise Eyes: Denies: change in vision or eye redness ENMT: Denies: throat pain, oral sores or ear or mastoid pain Card: Reports: irregular heart rhythm, edema, swelling of feet/ankles and dyspnea on exertion; Denies: chest pain or pre-syncope Resp: Reports: dyspnea and productive cough; Denies: change in phlegm color or hemoptysis GI: Denies: abdominal pain, nausea, vomiting, diarrhea, constipation, hematochezia or melena : Denies: flank pain, difficulty urinating, urinary frequency or hematuria Musc: Denies: back pain, joint swelling or joint redness Skin/Breast: Denies: rash, sores or new lesions Neuro: Denies: headache(s), numbness in extremities, weakness in extremities, dizziness, confusion or seizure-like activity Endo: Denies: polyuria or polydipsia Marco/Lymph: Denies: easy bleeding or purpura All/Imm: Denies: urticaria, throat swelling or tongue swelling Medications/Allergies Home Medications Medication Instructions Recorded Confirmed Last Taken Type apixaban 5 mg tablet (Eliquis) 5 mg PO BID #60 tab 08/11/21 09/20/21 09/19/21 Rx digoxin 250 mcg (0.25 mg) tablet 250 mcg PO DAILY #30 tab 08/11/21 09/20/21 09/19/21 Rx diltiazem HCl 60 mg tablet 60 mg PO TID #90 tab 08/11/21 09/20/21 09/19/21 Rx lisinopril 5 mg tablet 5 mg PO DAILY #30 tab 08/11/21 09/20/21 09/19/21 Rx metoprolol tartrate 50 mg tablet 100 mg PO BID@0900,2100 #120 tab 08/11/21 09/20/21 09/19/21 Rx pantoprazole 40 mg tablet,delayed 40 mg PO DAILY #30 tab 08/11/21 09/20/21 09/19/21 Rx release potassium chloride 20 mEq 20 meq PO BID #60 tab 08/11/21 09/20/21 09/19/21 Rx tablet,extended release furosemide 20 mg tablet (Lasix) See Rx Instructions .ROUTE .COMPLEX 09/20/21 09/20/21 09/19/21 History Allergies Allergy/AdvReac Type Severity Reaction Status Date / Time meperidine [From Demerol] Allergy ALGY-Hives Verified 08/18/21 13:03 lucius Allergy ALGY-Anaphy Uncoded 08/06/21 11:00 laxis PFSH Acute PFSH: Medical History (Updated 09/20/21 @ 12:46 by Ruben Taveras MD) Atrial flutter with rapid ventricular response COPD (chronic obstructive pulmonary disease) Reported Diabetes mellitus type 2 in obese Hyperlipidemia Hypertension Obesity Obstructive sleep apnea Surgical History History of knee surgery Family History Other Dementia Diabetes Social History (Updated 09/20/21 @ 12:39 by Ruben Taveras MD) Smoking and tobacco status: smoker, details unknown cigarettes [ Other cigarette details: States he had just quit] Alcohol intake: current Alcohol intake frequency: holidays/special occasions only Substance/Drug Use: current Substance/Drug use type: Marijuana Other substance/drug use details: Occ Lives independently: Yes Household members: spouse Marital status: Vitals/I&O/Wt Last Vital Signs Temp 99.0 F 09/20/21 06:19 Pulse 112 H 09/20/21 12:27 Resp 17 09/20/21 12:27 BP 129/72 09/20/21 12:27 Pulse Ox 93 09/20/21 12:27 09/19/21 09/20/21 09/20/21 22:59 06:59 14:59 Intake Total 6.833 / 6.833 Balance 6.833 / 6.833 Weight last 48 hrs Weight 213.188 kg Physical Exam Narrative: is at bedside Const: COMMON NORMALS: no acute distress and patient oriented x3 NUTRI TIONAL APPEARANCE: obese morbidly obese HENMT: COMMON NORMALS: oropharynx normal Neck/C-Spine: COMMON NORMALS: no JVD Resp: COMMON NORMALS: normal respiratory effort AUSCULTATION: rhonchi and diminished lung sounds Cardio: COMMON NORMALS: no JVD, regular rhythm, S1 normal heart sound present, S2 normal heart sound present and No murmurs present (Cardio) RHYTHM: regular rhythm HEART SOUNDS: S1 normal heart sound present and S2 normal heart sound present GI: COMMON NORMALS: Normal to inspection, nondistended, normoactive bowel sounds present, Soft to palpation and non-tender PALPATION: Yes Soft to palpation Extremity: COMMON NORMALS: no joint enlargement GENERAL: Yes edema (2+ pedal and lower pannus) Neuro: COMMON NORMALS: patient oriented x3 and moves all extremities Skin: COMMON NORMALS: no rashes or lesions noted GENERAL SKIN EXAM: no rashes or lesions noted Data : 09/20/21 07:16 09/20/21 07:16 A&P Assessment and plan (1) COPD exacerbation: Improved, productive cough, dyspnea. Severe COPD exacerbation. Will swab for Covid, PCR, flu. He is having pharyngitis as well, rapid strep. Prednisone. Doxycycline. Breathing treatments. Antitussives. Status: Acute (2) CHF exacerbation: Acute systolic congestive heart failure exacerbation. Complaints of dyspnea on exertion, significant peripheral edema including edema of his pannus/lower abd omen. With cardiomyopathy noted retroflection 25% during recent GUS. At the time unclear whether ischemic or nonischemic cardiomyopathy, with consideration of coronary geography, but at the time he requested to do it as outpatient. 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 He also has not set up for a LifeVest which she previously stated would do on outpatient basis, states due to insurance issues which is why had spent 2 hours on the phone discussing yesterday. Lasix 60 mg IV twice daily. Monitor JOE. Complete troponin EKG series. Assess limited TTE. Consultation to cardiology as he will need cardiac cath. Status: Acute (3) Troponin level elevated: Complete troponin EKG series. Assess limited TTE. Had not been assessed by cardiology last time, was lost to follow-up subsequently. Likely would benefit from coronary geography during this admission. Cardiology consultation requested. ASA, BB, statin Status: Acute (4) Persistent atrial fibrillation with RVR: Difficult to control atrial fibrillation with RVR. In ER received both IV and p.o. metoprolol, IV digoxin push. Low blood collection, although he states he ran out of medications 2 days ago, unclear whether he may have not been taking it for longer. Received also Cardizem push, started transiently on Cardizem drip. Monitor on telemetry. Resume home diltiazem, metoprolol. Digoxin. Wean off Cardizem drip. On telemetry. Check magnesium. Follow-up electrolytes. Status: Acute (5) Pharyngitis: Rapid strep swab. Status: Acute Plan HTN HLD DM2 JESUS Obesity Attestations Medical Necessity Statement*: Admission of over 2 midnights is anticipated for assessment management of CHF exacerbation, difficult to control A. fib with RVR, COPD exacerbation, cardiomyopathy assessment. Coding Level of Care Code Acute Naturalist for Chg Fwd Exam Comprehensive Diagnoses COPD exacerbation J44.1 Pharyngitis J02.9 CHF exacerbation I50.9 Troponin level elevated R77.8 Persistent atrial fibrillation with RVR I48.19
--- NOTE | 2021-09-20 12:45 | USCV_ITS ---
Lionel, Henry Age: 41 Gender: M : 1980 Exam Date: 09/20/2021 15:58 Ordering Phys: Ruben Taveras MD Technologist: [place] [facility] [place]: chf trop elevation BP: / HR: Rhythm: Sinus Technical Quality: Very technically difficult study MEASUREMENTS (Male / Female) Normal Values FINDINGS Left Ventricle Mildly increased left ventricular cavity size. Increased left ventricular wall thickness. Severely decreased left ventricular systolic function. Left ventricular ejection fraction is estimated at 30 %. Right Ventricle Right ventricle not well visualized. Right Atrium Right atrium not well visualized. Left Atrium Left atrium not well visualized. Mitral Valve Aortic Valve Tricuspid Valve Pulmonic Valve Pericardium Aorta CONCLUSIONS Mildly increased left ventricular cavity size. Increased left ventricular wall thickness. Severely decreased left ventricular systolic function. Left ventricular ejection fraction is estimated at 30 %. Limited ECHo with poor quality because of body habitus and can't lay flat Noahaysed Anjana LITTLE (Electronically Signed) Final Date: 21 September 2021 12:10 S
--- NOTE | 2021-09-20 12:45 | PC.NURSE ---
To ICU 12 at 1235 via stretcher, patient ambulated to chair, VSS, patient AAOx4. at bedside.
--- NOTE | 2021-09-20 13:14 | PC.NURSE ---
Patient refusing to wear hospital gown. Patient educated.
[2021-09-20 13:44] LABS: Magnesium 1.6 mg/dL (1.7-2.3)
[2021-09-20 14:06] LABS: Troponin 5 6HR 42.66 ng/L (0-15)
[2021-09-20] MEDS: aspirin 325 mg EC Tablet PO (14:06)
[2021-09-20 14:20] LABS: Troponin 5 6HR Delta -3.34 ng/L (0-12)
[2021-09-20 14:48] LABS: Rapid Strep A Test Negative (Negative)
[2021-09-20 16:01] LABS: Adenovirus Not Detected (NOT DETECT); Chlamydia Pneumoniae Not Detected (NOT DETECT); Coronavirus 229E,HKU1,NL63,OC4 Not Detected (NOT DETECT); Human Metapneumovirus Not Detected (NOT DETECT); Human Rhinovirus/Enterovirus Not Detected (NOT DETECT); Influenza A Not Detected (NOT DETECT); Influenza A H1 Not Detected (NOT DETECT); Influenza A H1-2009 Not Detected (NOT DETECT); Influenza A H3 Not Detected (NOT DETECT); Influenza B Not Detected (NOT DETECT); Mycoplasma Pneumoniae Not Detected (NOT DETECT); Parainfluenza Virus Type 1 Not Detected (NOT DETECT); Parainfluenza Virus Type 2 Not Detected (NOT DETECT); Parainfluenza Virus Type 3 Not Detected (NOT DETECT); Parainfluenza Virus Type 4 Not Detected (NOT DETECT); Respiratory Syncytial Virus A Not Detected (NOT DETECT); Respiratory Syncytial Virus B Not Detected (NOT DETECT); SARS-COV-2 Not Detected (NOT DETECT)
[2021-09-20] MEDS: FUROsemide 10 mg/mL SDV 10mL 60 MG IVP (16:08)
[2021-09-20 16:10] LABS: Influenza A Not Detected (NOT DETECT); Influenza A H1 Not Detected (NOT DETECT); Influenza A H1-2009 Not Detected (NOT DETECT); Influenza A H3 Not Detected (NOT DETECT); Influenza B Not Detected (NOT DETECT); Results from Genmark
[2021-09-20] MEDS: potassium chloride ER 20 mEq Tablet PO (17:22)
[2021-09-20] MEDS: magnesium sulfate premix 2 GM/50 ML PIGGYBACK IV (17:22)
[2021-09-20] MEDS: apixaban 5 mg Tablet PO (17:23)
[2021-09-20 17:35] LABS: Glucose Point of Care 144 mg/dL (70-110)
[2021-09-20] MEDS: insulin lispro 100 unit/1 mL SUBCUT ×2 (17:36→20:25)
[2021-09-20 20:06] LABS: Glucose Point of Care 146 mg/dL (70-110)
[2021-09-20] MEDS: atorvastatin 40 mg Tablet PO (20:24)
[2021-09-21] VITALS (22 sets, daily range): BP systolic 115–138; BP diastolic 76–112; PULSE 87–133; RESP 15–26; TEMP 36.6–37.2; O2SAT 90–96
[2021-09-21] MEDS: FUROsemide 10 mg/mL SDV 10mL 60 MG IVP ×3 (03:32→21:08)
[2021-09-21 04:45] LABS: Basophils # 0.1 10^3/uL (0.0-0.1); Basophils % 0.5 %; Eosinophils # 0.6 10^3/uL (0.0-0.8); Eosinophils % 3.9 %; Hematocrit 43.2 % (42.0-52.0); Hemoglobin 13.4 g/dL (11.7-16.6); Lymphocytes # 2.3 10^3/uL (0.8-4.8); Mean Corpuscular Hemoglobin 28.7 pg (28.0-34.0); Mean Corpuscular Volume 92.5 fl (80-94); Monocytes % 6.6 %; Neutrophils # 11.27 10^3/uL (1.8-7.7); Neutrophils % 73.4 %; Nucleated Red Blood Cells % 0 %; Platelet Count 281 10^3/cmm (130-400); Red Blood Count 4.67 10^6/uL (4.1-5.3); Red Cell Distribution Width 14.3 % (12.1-15.1); White Blood Count 15.4 10^3/uL (4.0-10.0)
[2021-09-21 05:09] LABS: Anion Gap 12.8 (5-19); Blood Urea Nitrogen 15 mg/dL (6-20); Calcium 9.3 mg/dL (8.5-10.5); Carbon Dioxide 31 mmol/L (22-29); Chloride 98 mmol/L (98-107); Glomerular Filtration Rate 92.1 mL/min (90-130); Glucose 166 mg/dL (65-115); Osmolality Calculated 291 mOsm/kg (285-295); Potassium 3.8 mmol/L (3.5-5.1); Sodium 138 mmol/L (136-145)
--- NOTE | 2021-09-21 06:05 | PC.NURSE ---
[id number] Report given to ROGELIO Greene in CSU Pt taken by wheelchair to room 105
--- NOTE | 2021-09-21 06:48 | PC.NURSE ---
pt arrived as transfer to unit from ICU at 0630 this AM via w/c accompanied by staff x1; pt independently transferring from w/c to preferred sitting position in recliner. Telemetry connected. oriented pt to room, bed POC.
[2021-09-21 07:30] LABS: Glucose Point of Care 173 mg/dL (70-110)
[2021-09-21] MEDS: insulin lispro 100 unit/1 mL SUBCUT ×4 (08:01→21:02)
[2021-09-21] MEDS: apixaban 5 mg Tablet PO ×2 (08:02→17:29)
[2021-09-21] MEDS: digoxin 250 mcg Tablet PO (08:02)
[2021-09-21] MEDS: potassium chloride ER 20 mEq Tablet PO ×2 (08:02→17:29)
[2021-09-21] MEDS: aspirin 325 mg EC Tablet PO (08:02)
[2021-09-21] MEDS: dilTIAZem 60 mg Tablet PO (08:02)
[2021-09-21] MEDS: pantoprazole DR 40 mg Tablet PO (08:02)
[2021-09-21] MEDS: metoprolol tartrate 50 mg Tablet 100 MG PO ×2 (08:18→21:02)
[2021-09-21 09:20] LABS: Magnesium 1.9 mg/dL (1.7-2.3)
--- NOTE | 2021-09-21 10:33 | PM.HP ---
Providers/Chief Complaint Admitting Physician: Ruben Taveras Chief Complaint: afib and trouble breathing History of Present Illness Franco Flowers is a 41 year old male presented with progressive shortness of breath that started 1 week ago and has been getting worse until last few days when he was having shortness of breath at rest in could not sleep well. He was admitted to the hospital in July with acute decompensation heart failure and was feeling better on discharge until 1 week ago. His shortness of breath was associated with lower extremity swelling and cough, mostly dry. Review of Systems General: Reports: 10 or more systems reviewed and unremarkable except in HPI and below Medications/Allergies Home Medications Medication Instructions Recorded Confirmed Last Taken Type apixaban 5 mg tablet (Eliquis) 5 mg PO BID #60 tab 08/11/21 09/20/21 09/19/21 Rx digoxin 250 mcg (0.25 mg) tablet 250 mcg PO DAILY #30 tab 08/11/21 09/20/21 09/19/21 Rx diltiazem HCl 60 mg tablet 60 mg PO TID #90 tab 08/11/21 09/20/21 09/19/21 Rx lisinopril 5 mg tablet 5 mg PO DAILY #30 tab 08/11/21 09/20/21 09/19/21 Rx metoprolol tartrate 50 mg tablet 100 mg PO BID@0900,2100 #120 tab 08/11/21 09/20/21 09/19/21 Rx pantoprazole 40 mg tablet,delayed 40 mg PO DAILY #30 tab 08/11/21 09/20/21 09/19/21 Rx release potassium chloride 20 mEq 20 meq PO BID #60 tab 08/11/21 09/20/21 09/19/21 Rx tablet,extended release furosemide 20 mg tablet (Lasix) See Rx Instructions .ROUTE .COMPLEX 09/20/21 09/20/21 09/19/21 History Allergies Allergy/AdvReac Type Severity Reaction Status Date / Time meperidine [From Demerol] Allergy ALGY-Hives Verified 08/18/21 13:03 lucius Allergy ALGY-Anaphy Uncoded 08/06/21 11:00 laxis PFSH Acute PFSH: Medical History (Updated 09/21/21 @ 10:45 by Keri Yeung MD) Atrial flutter with rapid ventricular response COPD (chronic obstructive pulmonary disease) Reported Diabetes mellitus type 2 in obese Hyperlipidemia Hypertension Obesity Obstructive sleep apnea Surgical History History of knee surgery Family History Other Dementia Diabetes Social History (Updated 09/20/21 @ 12:39 by Ruben Taveras MD) Smoking and tobacco status: smoker, details unknown cigarettes [ Other cigarette details: States he had just quit] Alcohol intake: current Alcohol intake frequency: holidays/special occasions only Substance/Drug Use: current Substance/Drug use type: Marijuana Other substance/drug use details: Occ Lives independently: Yes Household members: spouse Marital status: Vitals/I&O/Wt Last Vital Signs Temp 98.1 F 09/21/21 07:54 Pulse 109 H 09/21/21 08:02 Resp 19 H 09/21/21 07:54 BP 136/93 09/21/21 07:54 Pulse Ox 94 09/21/21 07:54 09/20/21 09/21/21 09/21/21 22:59 06:59 14:59 Intake Total 1470 / 1476.833 720 / 2196.833 360 / 360 Output Total 675 / 675 3600 / 4275 Balance 795 / 801.833 -2880 / -2078.167 360 / 360 Weight last 48 hrs Weight 213.188 kg Weight 213.188 kg Physical Exam Narrative: General: No acute distress, not able to lie flat HEENT: PERRLA, no conjunctiva redness or discharge Chest: basal crackles, wheezes, equal air entry bilaterally CVS: S1-S2 regular, no murmurs, no tachycardia, no gallops, no rubs Abdomen: Soft, nontender, no organomegaly, bowel sounds present Neuro: A* O * 3, no focal deficit LE: Bilateral LE edema and can't feel pulses well but warm with good capillary refill Psych: normal affect and co-operative Data : 09/21/21 04:28 09/21/21 04:28 EKG 1: I personally reviewed and interpreted this EKG as follows: My Interpretation: AFIb and low voltage EKG computer-generated impression: Chest X-Ray 09/20/21 06:27 IMPRESSION: 1. Heart is enlarged but stable when compared to the prior exam. 2. No acute focal pulmonary opacities are detected. A&P Assessment and plan (1) CHF exacerbation: Status: Acute (2) Persistent atrial fibrillation with RVR: Status: Acute Plan Lasix 60 mg TID IV D/C Diltiazem Cont B-danis and digoxin Cont oral anticoagulation Evaluate for sleep apnea Weight loss low salt diet f/u I/O Attestations Medical Necessity Statement*: Acute CHF Coding Level of Care Code Acute Machine Set Up Technician for Chg Fwd History Expanded Problem Focused Exam Expanded Problem Focused Medical Decision Making Moderate Complexity Diagnoses CHF exacerbation I50.9 Persistent atrial fibrillation with RVR I48.19
[2021-09-21 11:19] LABS: Glucose Point of Care 175 mg/dL (70-110)
--- NOTE | 2021-09-21 14:45 | P.PN_ITS ---
Subjective Subjective: He reports he is feeling slightly better, but still gets very easily dyspneic with exertion. No chest pain or pressure. No presyncopal symptoms. Vitals/I&O/Wt Last Vital Signs Temp 98.4 F 09/21/21 11:50 Pulse 87 09/21/21 11:50 Resp 19 H 09/21/21 07:54 BP 120/76 09/21/21 11:50 Pulse Ox 94 09/21/21 11:50 09/20/21 09/21/21 09/21/21 22:59 06:59 14:59 Intake Total 1470 / 1476.833 720 / 2196.833 360 / 360 Output Total 675 / 675 3600 / 4275 Balance 795 / 801.833 -2880 / -2078.167 360 / 360 Weight last 48 hrs Weight 213.188 kg Weight 213.188 kg Physical Exam Narrative: Up in chair Const: COMMON NORMALS: no acute distress and patient oriented x3 NUTRITIONAL APPEARANCE: obese morbidly obese HENMT: COMMON NORMALS: oropharynx normal Neck/C-Spine: COMMON NORMALS: no JVD Resp: COMMON NORMALS: normal respiratory effort AUSCULTATION: rhonchi, wheezes (mild) and diminished lung sounds Cardio: COMMON NORMALS: no JVD, regular rhythm, S1 normal heart sound present, S2 normal heart sound present and No murmurs present (Cardio) RHYTHM: regular rhythm HEART SOUNDS: S1 normal heart sound present and S2 normal heart sound present GI: COMMON NORMALS: Normal to inspection, nondistended, normoactive bowel sounds present, Soft to palpation and non-tender PALPATION: Yes Soft to palpation Extremity: COMMON NORMALS: no joint enlargement GENERAL: Yes edema (2+ pedal and lower pannus) Neuro: COMMON NORMALS: patient oriented x3 and moves all extremities Skin: COMMON NORMALS: no rashes or lesions noted GENERAL SKIN EXAM: no rashes or lesions noted Data : 09/21/21 04:28 09/21/21 04:28 A&P Assessment and plan (1) CHF exacerbation: Continue IV diuretics. Monitor I&O. Acute systolic congestive heart failure exacerbation. Complaints of dyspnea on exertion, significant peripheral edema including edema of his pannus/lower abdomen. With cardiomyopathy noted retroflection 25% during recent GUS. At the time unclear whether ischemic or nonischemic cardiomyopathy, with consideration of coronary geography, but at the time he requested to do it as outpatient. 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 He also has not set up for a LifeVest which she previously stated would do on outpatient basis, [facility] due to insurance issues which is why had spent 2 hours on the phone discussing day prior to admission. Consideration of cardiac cath as per cardiology. Last admission he declined inpatient cath in favor of doing it outpatient, but then was lost to follow-up. Status: Acute (2) COPD exacerbation: Improved, productive cough, dyspnea. Severe COPD exacerbation. Negative swab for Covid by PCR, flu. Negative rapid strep. Prednisone. Doxycycline. Breathing treatments. Antitussives. Status: Acute (3) Troponin level elevated: Last admission he declined inpatient cath in favor of doing it outpatient, but then was lost to follow-up. Consider arrangement during this admission as per cardiology. ASA, BB, statin Status: Acute (4) Persistent atrial fibrillation with RVR: Heart rates improving. Off diltiazem. Continue metoprolol, digoxin. Received replacement for hypomagnesemia. Recheck level. Monitor on telemetry. Check magnesium. Follow-up electrolytes. Status: Acute (5) Pharyngitis: Rapid strep swab negative. Viral studies negative. Status: Acute Plan HTN HLD DM2 JESUS: Not on CPAP. [facility] previously was on BiPAP. However, moved [facility] from [place] to [place], insurance lapsed, and BiPAP was taken away. He states he never really used it as it was not configured well for him. States he is in the process of obtaining another BiPAP machine currently with his insurance. [facility] day will be using his previous sleep study. Obesity Attestations Medical Necessity Statement*: Continue admission for assessment management of CHF exacerbation, COPD exacerbation, optimization of control of A. fib with RVR. Coding Level of Care Code Acute Cutting Department Supervisor for Tomeka Fwcece Diagnoses COPD exacerbation J44.1 CHF exacerbation I50.9 Troponin level elevated R77.8 Persistent atrial fibrillation with RVR I48.19 Pharyngitis J02.9
[2021-09-21] MEDS: predniSONE 20 mg Tablet 40 MG PO (15:20)
[2021-09-21] MEDS: cetylpyridinium Lozenge 1 EACH MUCOUS MEM (15:52)
[2021-09-21] MEDS: doxycycline 100 MG in sodium chloride 0.9% (plus) 100 ML IV (15:54)
[2021-09-21] MEDS: ipratropium-albuterol 3 mL Neb INHALATION ×2 (16:10→21:21)
--- NOTE | 2021-09-21 16:13 | PC.CHAP ---
Pastoral Care Encounter/Spiritual Assessment Type of Contact [] Declined first sampler visit [] Patient/Family/Request visit [] Outpatient visit [] Follow-up visit [] Physician referral [] Code/Alert [XX] Routine visit [] Staff referral [] Actively dying [] Patient sleeping [] Family support [] [] Out of room [] Palliative care [] [] Receiving care in room [] Pre-surgical visit [] Trauma [] Long length of stay [] ICU visit [] Other: Relational/Emotional Strength [XX] Patient feels connected with others/family/visitors/staff [] Distress [] Loneliness/isolation [] Abandonment Spirituality of Patient [XX] Person of Kathleen [] Attends Taoist of their Kathleen [XX] Believes in Prayer [] Reads Bible or Congregation materials [] There are Spiritual issues to be addressed Deliverer Outside Interventions [] Prayer [X] Active listening [X] Non-anxious presence [] Spiritual/emotional support [] Crisis/trauma care [] Spiritual counseling [] Bereavement support [] Provided bereavement packet [] Provided Bible/devotional materials [] Provided toy/stuffed animal, coloring book to patient or family member [] Provided Communion [] Anointing/[place] [] Salvation [X] Completed spiritual assessment [] Other: Impact on Illness or Injury [] Angry [] Fearful [] Anxious [] Often cries [] Exhaustion [X] Unable to work [] Unable to attend uatsdin [] Unable to walk/stand [] Unable to read [] Unable to drive [] Unable to eat/drink [] Unable to sleep [] Unable to be with family [] Patient intubated [] Other: Summary: Pt is a young man with cardiac issues. Per pt's report, no male in his family has lived past 47 years due to heart issues. Deliverer Outside inquired as to pt's relationship with God, how he savanah with the family history knowledge and his health issues. Pt has a mostly fatalistic perspective. He did not express spiritual concern; his primary concern is for his family (, 2 children, 1 grandchild). Pt declined prayer but appreciated the visit. Time spent with patient: 10 mins
[2021-09-21 16:38] LABS: Glucose Point of Care 167 mg/dL (70-110)
[2021-09-21 20:44] LABS: Glucose Point of Care 225 mg/dL (70-110)
[2021-09-21] MEDS: atorvastatin 40 mg Tablet PO (21:02)
[2021-09-22] VITALS (15 sets, daily range): BP systolic 147–191; BP diastolic 88–154; PULSE 103–135; RESP 16–26; TEMP 36.2–36.9; O2SAT 91–98
[2021-09-22] MEDS: ipratropium-albuterol 3 mL Neb INHALATION ×2 (02:49→08:24)
[2021-09-22] MEDS: doxycycline 100 MG in sodium chloride 0.9% (plus) 100 ML IV ×2 (03:56→15:49)
[2021-09-22 05:09] LABS: Basophils # 0.1 10^3/uL (0.0-0.1); Basophils % 0.4 %; Eosinophils # 0.2 10^3/uL (0.0-0.8); Eosinophils % 1.3 %; Hematocrit 43.9 % (42.0-52.0); Lymphocytes # 2.2 10^3/uL (0.8-4.8); Mean Corpuscular HGB Conc 31.9 g/dL (30.0-36.0); Mean Corpuscular Hemoglobin 28.6 pg (28.0-34.0); Mean Corpuscular Volume 89.6 fl (80-94); Mean Platelet Volume 11.1 fL (7.4-10.4); Monocytes # 1.1 10^3/uL (0.2-0.9); Monocytes % 7.1 %; Neutrophils # 11.91 10^3/uL (1.8-7.7); Neutrophils % 76.6 %; Nucleated Red Blood Cells % 0 %; Platelet Count 276 10^3/cmm (130-400); Red Cell Distribution Width 13.7 % (12.1-15.1); White Blood Count 15.6 10^3/uL (4.0-10.0)
[2021-09-22 05:35] LABS: Anion Gap 16.8 (5-19); Blood Urea Nitrogen 17 mg/dL (6-20); Calcium 9.2 mg/dL (8.5-10.5); Carbon Dioxide 28 mmol/L (22-29); Chloride 96 mmol/L (98-107); Glomerular Filtration Rate 123.1 mL/min (90-130); Glucose 153 mg/dL (65-115); Magnesium 1.8 mg/dL (1.7-2.3); Osmolality Calculated 289 mOsm/kg (285-295); Potassium 3.8 mmol/L (3.5-5.1); Sodium 137 mmol/L (136-145)
[2021-09-22 06:33] LABS: Glucose Point of Care 170 mg/dL (70-110)
[2021-09-22] MEDS: insulin lispro 100 unit/1 mL SUBCUT ×4 (07:55→21:47)
[2021-09-22] MEDS: apixaban 5 mg Tablet PO ×2 (07:59→18:39)
[2021-09-22] MEDS: pantoprazole DR 40 mg Tablet PO (07:59)
[2021-09-22] MEDS: metoprolol tartrate 50 mg Tablet 100 MG PO ×2 (07:59→21:47)
[2021-09-22] MEDS: digoxin 250 mcg Tablet PO (08:00)
[2021-09-22] MEDS: potassium chloride ER 20 mEq Tablet PO ×2 (08:00→18:39)
[2021-09-22] MEDS: predniSONE 20 mg Tablet 40 MG PO (08:00)
[2021-09-22] MEDS: aspirin 325 mg EC Tablet PO (08:00)
[2021-09-22] MEDS: FUROsemide 10 mg/mL SDV 10mL 60 MG IVP ×3 (09:30→21:46)
--- NOTE | 2021-09-22 10:35 | PC.CHAP ---
Pastoral Care Encounter/Spiritual Assessment Type of Contact [] Declined cruise guide visit [] Patient/Family/Request visit [] Outpatient visit [] Follow-up visit [] Physician referral [] Code/Alert [x] Routine visit [] Staff referral [] Actively dying [] Patient sleeping [] Family support [] [] Out of room [] Palliative care [] [] Receiving care in room [] Pre-surgical visit [] Trauma [] Long length of stay [] ICU visit [] Other: Relational/Emotional Strength [] Patient feels connected with others/family/visitors/staff [] Distress [] Loneliness/isolation [] Abandonment Spirituality of Patient [] Person of Kathleen [] Attends Christianity of their Kathleen [] Believes in Prayer [] Reads Bible or Yazidism materials [] There are Spiritual issues to be addressed Health Officer Interventions [x] Prayer [x] Active listening [x] Non-anxious presence [x] Spiritual/emotional support [] Crisis/trauma care [] Spiritual counseling [] Bereavement support [] Provided bereavement packet [] Provided Bible/devotional materials [] Provided toy/stuffed animal, coloring book to patient or family member [] Provided Communion [] Anointing/[place] [] Salvation [x] Completed spiritual assessment [] Other: Impact on Illness or Injury [] Angry [] Fearful [] Anxious [] Often cries [] Exhaustion [] Unable to work [] Unable to attend hinduism [] Unable to walk/stand [] Unable to read [] Unable to drive [] Unable to eat/drink [] Unable to sleep [] Unable to be with family [] Patient intubated [] Other: Summary patient having issues with breathing.... Time spent with patient 15 min
[2021-09-22 12:16] LABS: Glucose Point of Care 204 mg/dL (70-110)
--- NOTE | 2021-09-22 13:30 | PC.NURSE ---
pt removed his IV catheter Pt stated his IV catheter is out. IV catheter is on the floor. IV catheter is intact. No bleeding, hematoma, infiltration on the cath access. New IV started on left FA #20g one attempt.
--- NOTE | 2021-09-22 14:00 | PC.NURSE ---
Breathing treatment held per RT due to pt's HR. Pt lungs are diminished. no complains of chest pain, SOB or dizziness. notified doctors.
[2021-09-22 16:31] LABS: Glucose Point of Care 246 mg/dL (70-110)
--- NOTE | 2021-09-22 17:09 | P.PN_ITS ---
Subjective Subjective: Thinks his breathing is a little bit better but not certain. We talked about BiPAP and CPAP and how challenging it can be to get accustomed to them. He has not had any chest pain overnight. Continues to be tachycardic. Is negative over 5 L since admission. Was able to prop his legs up on the bed last night while leaning back in the chair and get some sleep. Medications: Reviewed: Yes Vitals/I&O/Wt Last Vital Signs Temp 97.6 F 09/22/21 16:00 Pulse 103 H 09/22/21 16:00 Resp 18 09/22/21 16:00 BP 174/125 09/22/21 16:00 Pulse Ox 97 09/22/21 16:00 09/22/21 09/22/21 09/22/21 06:59 14:59 22:59 Intake Total 480 / 2136 1176 / 1176 Output Total 3150 / 3800 2600 / 2600 Balance -2670 / -1664 -1424 / -1424 Cumulative I&O 09/20/21 06:01 thru 09/23/21 01:41 Intake Total 7223.475 Output Total 09307 Balance -5551.525 Physical Exam Narrative: Constitutional: Awake and alert, cooperative HEENT: Normocephalic, extraocular movements are intact, moist mucous membranes Neck: Supple Respiratory: Crackles throughout, scattered wheezes, able to talk 5-7 word sentences Cardiovascular: Distant heart sounds Abdomen: Obese but soft Extremities: 4+ edema Neuro: Speech clear, face symmetric, moves all extremities Data : 09/22/21 04:50 09/22/21 04:50 Micro: Microbiology 09/20/21 14:00 Group A Streptococcus Rapid Screen - Preliminary Throat A&P Assessment and plan (1) CHF exacerbation: Acute on chronic systolic CHF with ejection fraction 25% last hospital stay, did not stay for arrangements for LifeVest Responding well to diuresis Status: Acute Qualifiers: Heart failure type: systolic Qualified Code(s): I50.23 - Acute on chronic systolic (congestive) heart failure (2) Troponin level elevated: With systolic CHF, suspect coronary artery disease, declined arrangements for inpatient cardiac catheterization last hospital stay Status: Acute (3) Persistent atrial fibrillation with RVR: On metoprolol and digoxin, off of diltiazem which is a home medication as well Status: Acute (4) COPD exacerbation: Covid testing was negative as was influenza testing Status: Acute (5) Pharyngitis: Rapid strep swab negative. Viral studies negative. Status: Acute (6) Hypertension: Chronically on Lasix, lisinopril, metoprolol and diltiazem Status: Chronic Qualifiers: Hypertension type: other secondary hypertension Qualified Code(s): I15.8 - Other secondary hypertension (7) Diabetes mellitus type 2 in obese: Not on chronic treatment, blood sugars have been elevated here, has not had A1c checked Status: Chronic (8) Obstructive sleep apnea: Does not have a device at home presently but has had previous sleep study Status: Chronic (9) BMI 60.0-69.9, adult: Status: Chronic Plan Decrease diuresis to twice a day Continue potassium Continue to monitor I's and O's closely Continue digoxin and beta-blockade Continue Eliquis On aspirin and statin Resume home lisinopril Monitor blood pressures to see if needs additional antihypertensive agents beyond diuresis Check lipid panel and hemoglobin A1c in the morning Cardiology following and will facilitate determination of cardiac catheterization this hospital stay plus or minus LifeVest placement as well as continued assistance with rate control Continue doxycycline, changing to oral Continue Atrovent and prednisone BiPAP with sleep Case management working on seeing what we can do to get BiPAP for home use with previous sleep study Continue PPI Eliquis provides appropriate VTE prophylaxis Supportive care otherwise Findings, concerns and plans were discussed with patient as well as family in the room. All were given an opportunity to ask questions Full code Attestations Medical Necessity Statement*: Requires ongoing inpatient stay for continued IV diuresis and management as noted above. Coding Level of Care Code Acute Booster Station Operator for g Fwd Diagnoses CHF exacerbation I50.23 Heart failure type: systolic COPD exacerbation J44.1 Troponin level elevated R77.8 Persistent atrial fibrillation with RVR I48.19 Pharyngitis J02.9 Hypertension I15.8 Hypertension type: other secondary hypertension Diabetes mellitus type 2 in obese E11.69; E66.9 Obstructive sleep apnea G47.33 BMI 60.0-69.9, adult Z68.44
--- NOTE | 2021-09-22 17:47 | P.PN_ITS ---
Subjective Subjective: Patient is feeling better. Diuresing well. Heart rate is still uncontrolled. Vitals/I&O/Wt Last Vital Signs Temp 97.6 F 09/22/21 16:00 Pulse 103 H 09/22/21 16:00 Resp 18 09/22/21 16:00 BP 174/125 09/22/21 16:00 Pulse Ox 97 09/22/21 16:00 09/22/21 09/22/21 09/22/21 06:59 14:59 22:59 Intake Total 480 / 2136 1176 / 1176 100 / 1276 Output Total 3150 / 3800 2600 / 2600 Balance -2670 / -1664 -1424 / -1424 100 / -1324 Physical Exam Narrative: General: No acute distress, not able to lay flat HEENT: PERRLA, no conjunctiva redness or discharge Chest: basal crackles, wheezes, equal air entry bilaterally CVS: S1-S2 regular, no murmurs, no tachycardia, no gallops, no rubs Abdomen: Soft, nontender, no organomegaly, bowel sounds present Neuro: Alert and oriented x3 LE: Bilateral LE edema and can't feel pulses well but warm with good capillary refill Psych: normal affect and co-operative Data : 09/23/21 03:00 09/23/21 03:00 Micro: Microbiology 09/20/21 14:00 Group A Streptococcus Rapid Screen - Preliminary Throat A&P Assessment and plan (1) CHF exacerbation: Status: Acute Qualifiers: Heart failure type: systolic Qualified Code(s): I50.23 - Acute on chron ic systolic (congestive) heart failure (2) Persistent atrial fibrillation with RVR: Status: Acute Plan Continue IV diuresis Heart rates are still uncontrolled. We will initiate amiodarone drip. Continue metoprolol and digoxin. Patient will need ischemic work-up once euvolemic. Strict I&O's. Low-sodium diet. Thank you for involving us with care of this patient. We will continue to follow. Please call with questions. Attestations Medical Necessity Statement*: Care expected to cross 2 midnights Coding Level of Care Code Acute Quill Fixer for [facility] Fwd Diagnoses CHF exacerbation I50.23 Heart failure type: systolic Persistent atrial fibrillation with RVR I48.19
--- NOTE | 2021-09-22 17:54 | PC.NURSE ---
ordered a new tray, rest of patient's food fell onto the floor.
--- NOTE | 2021-09-22 18:42 | PC.NURSE ---
shaved patient chest per nurse's request to help with accuracy of heart monitor.
--- NOTE | 2021-09-22 19:00 | PC.NURSE ---
Sales And Marketing Intern orders Dr. Moy at bedside. Pt HR has been sustaining in afib w/rvr 125s today. Received verbal orders to start pt on Amiodarone drip bolus 150 mg then start on Amiodarone drip per protocol.
[2021-09-22 20:28] LABS: Glucose Point of Care 259 mg/dL (70-110)
--- NOTE | 2021-09-22 21:00 | PC.NURSE ---
Shift Note Frequent safety and comfort rounds continue. Orders and/or nursing care completed as indicated. Patient monitored for response to intervention and treatment(s). Education provided includes amiodarone drip for HR. Patient and/or pharmaceutical service representative verbalizes understanding. Will continue to monitor.
[2021-09-22] MEDS: atorvastatin 40 mg Tablet PO (21:47)
[2021-09-23] VITALS (16 sets, daily range): BP systolic 131–177; BP diastolic 87–109; PULSE 95–120; RESP 15–22; TEMP 36.6–36.9; O2SAT 93–97
[2021-09-23] MEDS: ipratropium-albuterol 3 mL Neb INHALATION ×3 (03:00→16:16)
[2021-09-23 03:34] LABS: Basophils # 0.1 10^3/uL (0.0-0.1); Basophils % 0.3 %; Eosinophils # 0.4 10^3/uL (0.0-0.8); Hematocrit 44.7 % (42.0-52.0); Hemoglobin 14.4 g/dL (11.7-16.6); Lymphocytes # 2.9 10^3/uL (0.8-4.8); Lymphocytes % 16.6 %; Mean Corpuscular HGB Conc 32.2 g/dL (30.0-36.0); Mean Corpuscular Hemoglobin 28.5 pg (28.0-34.0); Mean Corpuscular Volume 88.3 fl (80-94); Mean Platelet Volume 11.2 fL (7.4-10.4); Monocytes # 1.4 10^3/uL (0.2-0.9); Monocytes % 8.2 %; Neutrophils # 12.74 10^3/uL (1.8-7.7); Neutrophils % 72.2 %; Nucleated Red Blood Cells % 0 %; Platelet Count 325 10^3/cmm (130-400); Red Blood Count 5.06 10^6/uL (4.1-5.3); Red Cell Distribution Width 13.8 % (12.1-15.1); White Blood Count 17.7 10^3/uL (4.0-10.0)
[2021-09-23 03:58] LABS: Estmated Average Glucose 186; Hemoglobin A1C 8.1 % (4.0-6.0)
[2021-09-23 03:59] LABS: Anion Gap 15.5 (5-19); Blood Urea Nitrogen 20 mg/dL (6-20); Calcium 9.5 mg/dL (8.5-10.5); Carbon Dioxide 30 mmol/L (22-29); Chloride 96 mmol/L (98-107); Chol HDL Ratio 3.82 mg/dL (1.0-5.00); Cholesterol 145 mg/dL (0-200); Glomerular Filtration Rate 105.5 mL/min (90-130); Glucose 136 mg/dL (65-115); HDL Cholesterol 38 mg/dL (60-100); LDL Cholesterol Calculated 86 mg/dL (50-129); LDL HDL Ratio 2.26 RATIO (0.00-3.22); Magnesium 1.7 mg/dL (1.7-2.3); Osmolality Calculated 291 mOsm/kg (285-295); Potassium 3.5 mmol/L (3.5-5.1); Sodium 138 mmol/L (136-145); Triglycerides 106 mg/dL (0-150)
[2021-09-23 06:37] LABS: Glucose Point of Care 154 mg/dL (70-110)
[2021-09-23] MEDS: FUROsemide 10 mg/mL SDV 10mL 60 MG IVP ×2 (06:50→15:08)
--- NOTE | 2021-09-23 08:04 | P.PN_ITS ---
Subjective Subjective: Patient feels better however still is short of breath. Heart rate is not controlled. On amio drip Vitals/I&O/Wt Last Vital Signs Temp 98.1 F 09/23/21 07:35 Pulse 117 H 09/23/21 07:35 Resp 22 H 09/23/21 07:35 BP 163/100 09/23/21 07:35 Pulse Ox 93 09/23/21 07:35 09/22/21 09/23/21 09/23/21 22:59 06:59 14:59 Intake Total 1163 / 2699 791.642 / 3490.642 Output Total 2100 / 4700 2750 / 7450 Balance -937 / -2000 -8.358 / -3959.358 Physical Exam Narrative: GENERAL: Patient is alert, awake and oriented x3. [] NECK: No jugular vein distension. [] HEENT: No cyanosis. No icterus. No pallor. [] HEART: Tachycardic, S1 and S2 LUNGS: Clear to auscultate bilaterally. [] ABDOMEN: Soft, nontender and nondistended. Positive bowel sounds. No guarding, rebound or tenderness. [] CENTRAL NERVOUS SYSTEM: Grossly nonfocal. [] EXTREMITIES: Lower extremities with 2+ edema bilaterally. Pulses palpable in the lower extremities, both dorsalis pedis and posterior tibial. [] Data : 09/24/21 02:23 09/24/21 02:23 Micro: Microbiology 09/20/21 14:00 Group A Streptococcus Rapid Screen - Preliminary Throat A&P Assessment and plan (1) CHF exacerbation: Status: Acute Qualifiers: Heart failure type: systolic Qualified Code(s): I50.23 - Acute on chronic systolic (congestive) heart failure (2) Persistent atrial fibrillation with RVR: Status: Acute Plan Continue IV diuresis. Diuresing well and creatinine is stable Heart rates are still uncontrolled. On amio drip however heart rates are not co ntrolled Continue metoprolol and digoxin. If heart rates are not controlled, we will consider GUS cardioversion Continue anticoagulation with Eliquis Patient will need ischemic work-up once euvolemic. Strict I&O's. Low-sodium diet. Thank you for involving us with care of this patient. We will continue to follow. Please call with questions. Attestations Medical Necessity Statement*: Care expected to cross 2 midnights Coding Level of Care Code Acute Eating Disorder Psychologist for [facility] Fwd Diagnoses CHF exacerbation I50.23 Heart failure type: systolic Persistent atrial fibrillation with RVR I48.19
--- NOTE | 2021-09-23 08:16 | PC.NURSE ---
0600 Lasix given IVP By rachele MERCADO during bedside report medication and patient scanned and verified documentation not saved
[2021-09-23] MEDS: potassium chloride ER 20 mEq Tablet PO ×2 (08:32→18:44)
[2021-09-23] MEDS: pantoprazole DR 40 mg Tablet PO (08:32)
[2021-09-23] MEDS: digoxin 250 mcg Tablet PO (08:32)
[2021-09-23] MEDS: doxycycline 100 mg Tablet PO ×2 (08:32→18:44)
[2021-09-23] MEDS: lisinopril 5 mg Tablet PO (08:32)
[2021-09-23] MEDS: metoprolol tartrate 50 mg Tablet 100 MG PO ×2 (08:32→21:07)
[2021-09-23] MEDS: predniSONE 20 mg Tablet 40 MG PO (08:32)
[2021-09-23] MEDS: aspirin 325 mg EC Tablet PO (08:32)
[2021-09-23] MEDS: apixaban 5 mg Tablet PO ×2 (08:32→18:44)
[2021-09-23] MEDS: insulin lispro 100 unit/1 mL SUBCUT ×3 (08:33→21:07)
[2021-09-23 11:23] LABS: Glucose Point of Care 197 mg/dL (70-110)
--- NOTE | 2021-09-23 12:20 | PM.PN ---
Subjective Subjective: Feels little better. Less SOB. Has PND however. Has edema but less. Denied CP, cough, palpitatation Vitals/I&O/Wt Last Vital Signs Temp 98.1 F 09/23/21 07:35 Pulse 113 H 09/23/21 11:09 Resp 20 H 09/23/21 11:09 BP 150/105 09/23/21 11:09 Pulse Ox 94 09/23/21 11:09 09/22/21 09/23/21 09/23/21 22:59 06:59 14:59 Intake Total 1163 / 2699 791.642 / 3490.642 Output Total 2100 / 4700 2750 / 7450 1800 / 1800 Balance -937 / -2000 -1958.358 / -3959.358 -1800 / -1800 Physical Exam Narrative: NAD CVS: S1S2, Tachy, Mur (-), JVD (-)Resp: decreased BS basally ant, otherwise clear Abd: soft, NT, BS+ Edema 2+, pitting WARD SECRETARY: A&Ox4 Data : 09/23/21 03:00 09/23/21 03:00 Micro: Microbiology 09/20/21 14:00 Group A Streptococcus Rapid Screen - Preliminary Throat A&P Assessment and plan (1) Acute systolic CHF (congestive heart failure): compensating, EF 25%. r/o Ischemic CM Status: Acute (2) Obstructive sleep apnea: not on CPAP Status: Chronic (3) Diabetes mellitus type 2 in obese: SSI Status: Chronic (4) Hyperlipidemia: Status: Chronic Qualifiers: Hyperlipidemia type: mixed hyperlipidemia Qualified Code(s): E78.2 - Mixed hyperlipidemia (5) Hypertension: stable Status: Chronic Qualifiers: Hypertension type: other secondary hypertension Qualified Code(s): I15.8 - Other secondary hypertension (6) LV dysfunction: EF 25% Status: Chronic (7) COPD exacerbation: stable Status: Acute (8) Troponin level elevated: r/o CAD Status: Acute (9) Persistent atrial fibrillation with RVR: Tachy. On Amiodarone Status: Acute (10) BMI 60.0-69.9, adult: Status: Chronic Plan Continue IV Diuresis Will need Cardiac Cath when stable Will rpt Sleep study as outpt for CPAP Daily wt Strict Is/Os F/U TFT Attestations Medical Necessity Statement*: Requires ongoing i npatient stay for continued IV diure sis and management as noted above. Time Spent in Patient Care: 40 min Coding Level of Care Code Acute Supervisor Major Appliance Assembly for [facility] Fwd Diagnoses Acute systolic CHF (congestive heart failure) I50.21 Obstructive sleep apnea G47.33 Diabetes mellitus type 2 in obese E11.69; E66.9 Hyperlipidemia E78.2 Hyperlipidemia type: mixed hyperlipidemia Hypertension I15.8 Hypertension type: other secondary hypertension LV dysfunction I51.9 COPD exacerbation J44.1 Troponin level elevated R77.8 Persistent atrial fibrillation with RVR I48.19 BMI 60.0-69.9, adult Z68.44
[2021-09-23 13:19] LABS: Anion Gap 19.5 (5-19); Blood Urea Nitrogen 19 mg/dL (6-20); Calcium 9.3 mg/dL (8.5-10.5); Carbon Dioxide 26 mmol/L (22-29); Chloride 95 mmol/L (98-107); Glomerular Filtration Rate 123.1 mL/min (90-130); Glucose 133 mg/dL (65-115); Osmolality Calculated 288 mOsm/kg (285-295); Potassium 3.5 mmol/L (3.5-5.1); Sodium 137 mmol/L (136-145); Thyroid Stimulating Hormone 5.07 uIU/mL (0.27-4.20)
--- NOTE | 2021-09-23 15:37 | PC.NURSE ---
Spoke with provider with concerns patient has not rested this stay and he is very jerky and falling asleep during conversation instructions to order abg
[2021-09-23 16:25] LABS: Glucose Point of Care 243 mg/dL (70-110)
[2021-09-23 16:28] LABS: ABG PCO2 47.6 mmHg (35-45); ABG PH Result 7.44 (7.35-7.45); Arterial Blood Gas Hematocrit 44.3 % (42-52); Base Excess ABG 6.6 mmol/L (-2.0-2.0); Blood Gas Allen Test Pos; Blood Gas Operator Identificat GD; Blood Gas Sample Site Radial, right; Blood Gas Sample Type Arterial; HCO3 ABG 32.1 mmol/L (22-26); Oxygen Device ROOM AIR; PO2 ABG 68.9 mmHg (80.0-100.0)
--- NOTE | 2021-09-23 18:03 | PC.NURSE ---
Spoke with Dr. Moy about starting PO amio when drip is scheduled to stop at 1999 instructions to continue amio gtt tell morning
[2021-09-23] MEDS: metformin 500 mg Tablet PO (18:44)
--- NOTE | 2021-09-23 19:44 | PC.NURSE ---
Received report from ROGELIO Beauchamp. Patient up to chair. Report sleeping in chair. Discussed use of bipap this night. Patient willing to try to use the bipap and verbalized understanding. Patient continues with amiodarone drip at this time for continued afib. No distress observed. Will continue to monitor.
[2021-09-23 20:19] LABS: Glucose Point of Care 170 mg/dL (70-110)
[2021-09-23] MEDS: atorvastatin 40 mg Tablet PO (21:07)
[2021-09-24] VITALS (17 sets, daily range): BP systolic 139–166; BP diastolic 77–118; PULSE 86–125; RESP 14–25; TEMP 36.1–37; O2SAT 79–100
[2021-09-24 03:10] LABS: Basophils # 0.1 10^3/uL (0.0-0.1); Basophils % 0.4 %; Eosinophils # 0.3 10^3/uL (0.0-0.8); Eosinophils % 1.4 %; Hematocrit 47.1 % (42.0-52.0); Hemoglobin 14.6 g/dL (11.7-16.6); Lymphocytes # 3.3 10^3/uL (0.8-4.8); Lymphocytes % 17.4 %; Mean Corpuscular Hemoglobin 28.6 pg (28.0-34.0); Mean Corpuscular Volume 92.4 fl (80-94); Mean Platelet Volume 11.2 fL (7.4-10.4); Monocytes # 1.6 10^3/uL (0.2-0.9); Monocytes % 8.6 %; Neutrophils # 13.36 10^3/uL (1.8-7.7); Neutrophils % 71.5 %; Nucleated Red Blood Cells % 0 %; Platelet Count 327 10^3/cmm (130-400); Red Cell Distribution Width 13.8 % (12.1-15.1); White Blood Count 18.7 10^3/uL (4.0-10.0)
[2021-09-24 03:47] LABS: Blood Urea Nitrogen 19 mg/dL (6-20); Calcium 9.2 mg/dL (8.5-10.5); Carbon Dioxide 27 mmol/L (22-29); Chloride 96 mmol/L (98-107); Glomerular Filtration Rate 123.1 mL/min (90-130); Glucose 187 mg/dL (65-115); Magnesium 1.8 mg/dL (1.7-2.3); Osmolality Calculated 289 mOsm/kg (285-295); Sodium 136 mmol/L (136-145)
[2021-09-24 03:50] LABS: Anion Gap 16.5 (5-19); Digoxin 0.4 ng/mL (0.6-1.2); Potassium 3.5 mmol/L (3.5-5.1)
[2021-09-24] MEDS: FUROsemide 10 mg/mL SDV 10mL 60 MG IVP ×2 (04:11→14:42)
--- NOTE | 2021-09-24 04:14 | PC.NURSE ---
Patient able to wear bipap ~2 hours this night. Patient requested mask to be removed at this time. Patient very restless during sleep.
[2021-09-24 06:48] LABS: Glucose Point of Care 198 mg/dL (70-110)
[2021-09-24] MEDS: insulin lispro 100 unit/1 mL SUBCUT ×4 (08:08→20:32)
[2021-09-24] MEDS: apixaban 5 mg Tablet PO ×2 (08:15→17:22)
[2021-09-24] MEDS: metformin 500 mg Tablet PO ×2 (08:15→17:22)
[2021-09-24] MEDS: lisinopril 5 mg Tablet PO (08:16)
[2021-09-24] MEDS: doxycycline 100 mg Tablet PO ×2 (08:16→17:22)
[2021-09-24] MEDS: metoprolol tartrate 50 mg Tablet 100 MG PO ×2 (08:16→20:32)
[2021-09-24] MEDS: digoxin 250 mcg Tablet PO (08:16)
[2021-09-24] MEDS: aspirin 325 mg EC Tablet PO (08:16)
[2021-09-24] MEDS: predniSONE 20 mg Tablet 40 MG PO (08:17)
[2021-09-24] MEDS: potassium chloride ER 20 mEq Tablet PO ×2 (08:17→17:22)
[2021-09-24] MEDS: pantoprazole DR 40 mg Tablet PO (08:17)
[2021-09-24] MEDS: ipratropium-albuterol 3 mL Neb INHALATION ×3 (08:21→20:55)
--- NOTE | 2021-09-24 09:59 | P.PN_ITS ---
Subjective Subjective: Patient feels breathing is slightly improved. Heart rates are still high staying in 110s-120s. Vitals/I&O/Wt Last Vital Signs Temp 97.0 F L 09/24/21 07:18 Pulse 120 H 09/24/21 08:24 Resp 18 09/24/21 08:24 BP 141/77 09/24/21 07:18 Pulse Ox 94 09/24/21 08:24 09/23/21 09/24/21 09/24/21 22:59 06:59 14:59 Intake Total 1177.768 / 1177.768 107.938 / 1285.706 600 / 600 Output Total 2000 / 3800 1500 / 5300 Balance -822.232 / -2622.232 -1392.062 / -4014.294 600 / 600 Physical Exam Narrative: GENERAL: Patient is alert, awake and oriented x3. [] NECK: No jugular vein distension. [] HEENT: No cyanosis. No icterus. No pallor. [] HEART: Irregularly irregular,Tachycardic, S1 and S2 LUNGS: Clear to auscultate bilaterally. [] ABDOMEN: Soft, nontender and nondistended. Positive bowel sounds. No guarding, rebound or tenderness. [] CENTRAL NERVOUS SYSTEM: Grossly nonfocal. [] EXTREMITIES: Lower extremities with 2+ edema bilaterally. Pulses palpable in the lower extremities, both dorsalis pedis and posterior tibial. [] Data : 09/25/21 03:34 09/25/21 03:34 Micro: Microbiology 09/20/21 14:00 Group A Streptococcus Rapid Screen - Final Throat A&P Assessment and plan (1) CHF exacerbation: Status: Acute Qualifiers: Heart failure type: systolic Qualified Code(s): I50.23 - Acute on chronic systolic (congestive) heart failure (2) Persistent atrial fibrillation with RVR: Status: Acute Plan Continue IV diuresis. Diuresing well and creatinine is stable Heart rates are still uncontrolled. Amio gtt converted to PO amiodarone 400mg TID Continue metoprolol and digoxin. As heart rates are not controlled, we will proceed with GUS/ Cardiolversion tomorrow. Risks and benefits of the procedure discussed with the patient. Continue anticoagulation with Eliquis Patient will need ischemic work-up once euvolemic. Strict I&O's. Low-sodium diet. Thank you for involving us with care of this patient. We will continue to follow. Please call with questions. Attestations Medical Necessity Statement*: Care expected to cross 2 midnights. Coding Level of Care Code Acute Furniture Sales Consultant for [facility] Fwd Diagnoses CHF exacerbation I50.23 Heart failure type: systolic Persistent atrial fibrillation with RVR I48.19
[2021-09-24] MEDS: amiodarone 200 mg Tablet 400 MG PO ×3 (10:45→20:32)
[2021-09-24 11:39] LABS: Glucose Point of Care 194 mg/dL (70-110)
--- NOTE | 2021-09-24 11:48 | PC.CHAP ---
Pastoral Care Encounter/Spiritual Assessment Type of Contact [] Declined erp engineer visit [] Patient/Family/Request visit [] Outpatient visit [] Follow-up visit [] Physician referral [] Code/Alert [x] Routine visit [] Staff referral [] Actively dying [] Patient sleeping [] Family support [] [] Out of room [] Palliative care [] [] Receiving care in room [] Pre-surgical visit [] Trauma [] Long length of stay [] ICU visit [] Other: Relational/Emotional Strength [] Patient feels connected with others/family/visitors/staff [] Distress [] Loneliness/isolation [] Abandonment Spirituality of Patient [] Person of Kathleen [] Attends Religion of their Kathleen [] Believes in Prayer [] Reads Bible or Buddhist materials [] There are Spiritual issues to be addressed Pharmacy Technologist Interventions [x] Prayer [] Active listening [] Non-anxious presence [] Spiritual/emotional support [] Crisis/trauma care [] Spiritual counseling [] Bereavement support [] Provided bereavement packet [] Provided Bible/devotional materials [] Provided toy/stuffed animal, coloring book to patient or family member [] Provided Communion [] Anointing/[place] [] Salvation [x] Completed spiritual assessment [] Other: Impact on Illness or Injury [] Angry [] Fearful [] Anxious [] Often cries [] Exhaustion [] Unable to work [] Unable to attend uatsdin [] Unable to walk/stand [] Unable to read [] Unable to drive [] Unable to eat/drink [] Unable to sleep [] Unable to be with family [] Patient intubated [] Other: Summary Time spent with patient
[2021-09-24 16:56] LABS: Glucose Point of Care 178 mg/dL (70-110)
--- NOTE | 2021-09-24 17:01 | PM.PN ---
Subjective Subjective: Pt desaturates whenever he slept last night.Slept better after using BiPaP, Doing OK otherwise. Still has significant edema. Denies CP Vitals/I&O/Wt Last Vital Signs Temp 98.6 F 09/24/21 15:41 Pulse 99 09/24/21 15:41 Resp 20 H 09/24/21 15:41 BP 141/118 09/24/21 15:41 Pulse Ox 92 09/24/21 15:41 09/24/21 09/24/21 09/24/21 06:59 14:59 22:59 Intake Total 107.938 / 7978.311 2722.041 / 1342.041 Output Total 1500 / 5300 1500 / 1500 Balance -1392.062 / -4014.294 -157.959 / -157.959 Physical Exam Narrative: NAD CVS: S1S2, Tachy, Mur (-), JVD (-)Resp: decreased BS basally ant, otherwise clear Abd: soft, NT, BS+ Edema 2+, pitting SHIPYARD PAINTING SUPERVISOR: A&Ox4 Data : 09/24/21 02:23 09/24/21 02:23 Micro: Microbiology 09/20/21 14:00 Group A Streptococcus Rapid Screen - Final Throat A&P Assessment and plan (1) Acute systolic CHF (congestive heart failure): Compensating slowly. EF 25% Status: Acute (2) LV dysfunction: EF 25%. Possibly Ischemic CM Status: Chronic (3) Persistent atrial fibrillation with RVR: rate controlled Status: Acute (4) Hypertension: stable Status: Chronic Qualifiers: Hypertension type: other secondary hypertension Qualified Code(s): I15.8 - Other secondary hypertension (5) Diabetes mellitus type 2 in obese: stable Status: Chronic (6) Obstructive sleep apnea: deasatutates when sleeping. Better w/ BiPaP Status: Chronic (7) COPD exacerbation: better Status: Acute (8) BMI 60.0-69.9, adult: Status: Chronic (9) Hyperlipidemia: Status: Chronic Qualifiers: Hyperlipidemia type: mixed hyperlipidemia Qualified Code(s): E78.2 - Mixed hyperlipidemia Plan Will need Life Vest. F/U WBC Continue diuresis BiPaP Attestations Medical Necessity Statement*: Requires ongoing i npatient stay for continued IV diure sis and management ?as noted above Time Spent in Patient Care: 40 min Critical Care Time: 10 min Coding Level of Care Code Acute Crackling Press Operator for Chg Fwd Diagnoses Acute systolic CHF (congestive heart failure) I50.21 LV dysfunction I51.9 Persistent atrial fibrillation with RVR I48.19 Hypertension I15.8 Hypertension type: other secondary hypertension Diabetes mellitus type 2 in obese E11.69; E66.9 Obstructive sleep apnea G47.33 COPD exacerbation J44.1 BMI 60.0-69.9, adult Z68.44 Hyperlipidemia E78.2 Hyperlipidemia type: mixed hyperlipidemia
[2021-09-24 18:18] LABS: Basophils # 0.1 10^3/uL (0.0-0.1); Basophils % 0.4 %; Eosinophils % 0.1 %; Hematocrit 45.7 % (42.0-52.0); Hemoglobin 14.5 g/dL (11.7-16.6); Lymphocytes # 1.5 10^3/uL (0.8-4.8); Lymphocytes % 9.3 %; Mean Corpuscular HGB Conc 31.7 g/dL (30.0-36.0); Mean Corpuscular Volume 91.4 fl (80-94); Mean Platelet Volume 11.1 fL (7.4-10.4); Monocytes # 0.7 10^3/uL (0.2-0.9); Monocytes % 4.5 %; Neutrophils # 13.68 10^3/uL (1.8-7.7); Neutrophils % 85.1 %; Nucleated Red Blood Cells % 0 %; Platelet Count 336 10^3/cmm (130-400); Red Cell Distribution Width 13.9 % (12.1-15.1); White Blood Count 16.1 10^3/uL (4.0-10.0)
[2021-09-24 18:57] LABS: Anion Gap 16.1 (5-19); Blood Urea Nitrogen 19 mg/dL (6-20); Calcium 9.4 mg/dL (8.5-10.5); Carbon Dioxide 27 mmol/L (22-29); Chloride 94 mmol/L (98-107); Glomerular Filtration Rate 123.1 mL/min (90-130); Glucose 176 mg/dL (65-115); Osmolality Calculated 283 mOsm/kg (285-295); Potassium 4.1 mmol/L (3.5-5.1); Sodium 133 mmol/L (136-145)
[2021-09-24 20:24] LABS: Glucose Point of Care 239 mg/dL (70-110)
[2021-09-24] MEDS: atorvastatin 40 mg Tablet PO (20:32)
[2021-09-25] VITALS (18 sets, daily range): BP systolic 124–168; BP diastolic 60–93; PULSE 69–105; RESP 11–20; TEMP 36.2–37; O2SAT 93–100
[2021-09-25] MEDS: ipratropium-albuterol 3 mL Neb INHALATION ×4 (03:15→21:27)
[2021-09-25] MEDS: FUROsemide 10 mg/mL SDV 10mL 60 MG IVP ×2 (04:06→14:23)
[2021-09-25 04:17] LABS: Basophils # 0.1 10^3/uL (0.0-0.1); Basophils % 0.6 %; Eosinophils # 0.3 10^3/uL (0.0-0.8); Eosinophils % 1.6 %; Hematocrit 45.4 % (42.0-52.0); Hemoglobin 14.3 g/dL (11.7-16.6); Lymphocytes % 16.9 %; Mean Corpuscular HGB Conc 31.5 g/dL (30.0-36.0); Mean Corpuscular Hemoglobin 28.5 pg (28.0-34.0); Mean Corpuscular Volume 90.4 fl (80-94); Mean Platelet Volume 11.2 fL (7.4-10.4); Monocytes # 1.7 10^3/uL (0.2-0.9); Monocytes % 9.2 %; Neutrophils % 70.9 %; Nucleated Red Blood Cells % 0 %; Platelet Count 316 10^3/cmm (130-400); Red Blood Count 5.02 10^6/uL (4.1-5.3); Red Cell Distribution Width 14.1 % (12.1-15.1)
[2021-09-25 04:32] LABS: Anion Gap 15.5 (5-19); Blood Urea Nitrogen 20 mg/dL (6-20); Calcium 9.6 mg/dL (8.5-10.5); Carbon Dioxide 30 mmol/L (22-29); Chloride 96 mmol/L (98-107); Glomerular Filtration Rate 105.5 mL/min (90-130); Glucose 172 mg/dL (65-115); Osmolality Calculated 293 mOsm/kg (285-295); Potassium 3.5 mmol/L (3.5-5.1); Sodium 138 mmol/L (136-145)
[2021-09-25 06:33] LABS: Glucose Point of Care 164 mg/dL (70-110)
--- NOTE | 2021-09-25 06:45 | P.ANESASSM_ITS ---
Pre-Anesthetic Assessment Height/Weight: Height 1.83 m Weight 213.188 kg Temp Pulse Resp BP Pulse Ox 98 F 100 19 H 160/71 95 09/25/21 03:39 09/25/21 03:39 09/25/21 03:39 09/25/21 03:39 09/25/21 03:39 Preop Diagnosis: Atrial fibrillation Operation Date: 09/25/21 07:00 Proposed Procedures p GUS(Not Applicable) - Devi Hatfield anesthetic complications: none Was Beta Rakesh taken within 24 hours: Yes Was Clonidine taken within 24 hours: N/A Social Tobacco (Chewing) and No alcohol Exam alert, oriented x 3, clear to auscultation bilaterally and regular rate & rhythm Airway Submandibular: within normal limits Cervical ROM: within normal limits Mallampati: Class II Dentition: chipped Comments: Comments: very poor dentition Pulmonary Chronic Obstructive Pulmonary Disease and Sleep Apnea CV/HEM Atrial Fibrillation, Arrythmia, Congestive Heart Failure and Hypertension TTE 09/20/21 ?CONCLUSIONS ?Mildly increased left ventricular cavity size. Increased left ?ventricular wall thickness. Severely decreased left ventricular ?systolic function. Left ventricular ejection fraction is ?estimated at 30 %. ?Limited ECHo with poor quality because of body habitus and can't ?lay flat EKG 09/20/21 Interpretive Statements ATRIAL FIBRILLATION POSSIBLE RIGHT VENTRICULAR HYPERTROPHY? [SOME/ALL OF: PROMINENT R IN V1, LATE TRANSITION, RAD, TEMO, SSS] POSSIBLE ANTERIOR MYOCARDIAL INFARCTION , PROBABLY OLD [30 ms Q WAVE IN V3/V4, OR R < 0.2 mV IN V4] Compared to ECG 09/20/2021 06:26:25 ST (T wave) deviation now present Electronically Signed On 09-22-2021 9:08:46 CDT by Eagle Moy M.D. [id number] None reported Hepatic None reported GI Gastroesophageal Reflux Disease Metabolic Diabetes Mellitus and Morbid Obesity [facility] [place] Osteoarthritis/DJD Neuropsych None reported Anesthetic Plan ASA status: 4 Anesthesia: Anesthesia Evaluation, General and MAC Other: I discussed with the patient risks, goals, and benefits of MAC and general anesthesia. We discussed spectrum of MAC anesthesia including conversion to general as well as possibility of recall of intraoperative stimuli including discomfort/pain. Patient agrees to proceed with MAC. Risk of > 500 ml blood loss (7ml/kg in children): No Medications/Allergies Home Medications Medication Instructions Recorded Confirmed Last Taken Type apixaban 5 mg tablet (Eliquis) 5 mg PO BID #60 tab 08/11/21 09/20/21 09/19/21 Rx digoxin 250 mcg (0.25 mg) tablet 250 mcg PO DAILY #30 tab 08/11/21 09/20/21 09/19/21 Rx diltiazem HCl 60 mg tablet 60 mg PO TID #90 tab 08/11/21 09/20/21 09/19/21 Rx lisinopril 5 mg tablet 5 mg PO DAILY #30 tab 08/11/21 09/20/21 09/19/21 Rx metoprolol tartrate 50 mg tablet 100 mg PO BID@0900,2100 #120 tab 08/11/21 09/20/21 09/19/21 Rx pantoprazole 40 mg tablet,delayed 40 mg PO DAILY #30 tab 08/11/21 09/20/21 09/19/21 Rx release potassium chloride 20 mEq 20 meq PO BID #60 tab 08/11/21 09/20/21 09/19/21 Rx tablet,extended release furosemide 20 mg tablet (Lasix) See Rx Instructions .ROUTE .COMPLEX 09/20/21 09/20/21 09/19/21 History Allergies Allergy/AdvReac Type Severity Reaction Status Date / Time meperidine [From Demerol] Allergy ALGY-Hives Verified 08/18/21 13:03 propoxyphene Allergy ALGY-Hives Verified 09/25/21 07:07 [From Darvocet-N 100] lucius Allergy ALGY-Anaphy Uncoded 08/06/21 11:00 laxis Current Medications Generic Name Dose Route Start Last Admin Trade Name Freq PRN Reason Stop Dose Admin Albuterol/Ipratropium 3 ml 09/21/21 15:00 09/25/21 03:15 Ipratropium-Albuterol 3 Ml Neb INHALATION 3 ml Q6H.RESPIRATORY CHICO Administration Amiodarone HCl 400 mg 09/24/21 10:30 09/24/21 20:32 Amiodarone 200 Mg Tablet PO 400 mg TID CHICO Administration Apixaban 5 mg 09/20/21 18:00 09/24/21 17:22 Apixaban 5 Mg Tablet PO 5 mg BID CHICO Administration Aspirin 325 mg 09/20/21 12:55 09/24/21 08:16 Aspirin 325 Mg Ec Tablet PO 325 mg DAILY CHICO Administration Atorvastatin Calcium 40 mg 09/20/21 21:00 09/24/21 20:32 Atorvastatin 40 Mg Tablet PO 40 mg BEDTIME CHICO Administration Benzocaine 1 each 09/21/21 15:44 09/21/21 15:52 Cetylpyridinium Lozenge MUCOUS MEM 1 each Q2H PRN Administration SORE THROAT Digoxin 250 mcg 09/21/21 09:00 09/24/21 08:16 Digoxin 250 Mcg Tablet PO 250 mcg DAILY CHICO Administration Doxycycline Monohydrate 100 mg 09/23/21 09:00 09/24/21 17:22 Doxycycline 100 Mg Tablet PO 100 mg BID CHICO Administration Protocol Furosemide 60 mg 09/23/21 06:00 09/25/21 04:06 Furosemide 10 Mg/Ml Sdv 10ml IVP 60 mg BID@06,14 CHICO Administration Insulin Human Lispro 0 unit 09/20/21 18:00 09/24/21 20:32 Insulin Lispro 100 Unit/1 Ml SUBCUT 6 unit WM&BEDTIME CHICO Administration Protocol Lisinopril 5 mg 09/23/21 09:00 09/24/21 08:16 Lisinopril 5 Mg Tablet PO 5 mg DAILY CHICO Administration Metformin HCl 500 mg 09/23/21 18:00 09/24/21 17:22 Metformin 500 Mg Tablet PO 500 mg BIDWM CHICO Administration Metoprolol Tartrate 100 mg 09/20/21 21:00 09/24/21 20:32 Metoprolol Tartrate 50 Mg Tablet PO 100 mg BID@0900,2100 CHICO Administration Pantoprazole Sodium 40 mg 09/21/21 09:00 09/24/21 08:[address] 40 Mg Tablet PO 40 mg DAILY CHICO Administration Potassium Chloride 20 meq 09/20/21 18:00 09/24/21 17:22 Potassium Chloride Er 20 Meq Tablet PO 20 meq BID CHICO Administration Prednisone 40 mg 09/21/21 14:55 09/24/21 08:17 Prednisone 20 Mg Tablet PO 40 mg DAILY CHICO Administration [facility] Anesthesia Medical History Atrial flutter with rapid ventricular response BMI 60.0-69.9, adult CHF (congestive heart failure) COPD (chronic obstructive pulmonary disease) Reported Diabetes mellitus type 2 in obese Hyperlipidemia Hypertension Obesity Obstructive sleep apnea Surgical History History of knee surgery Family History Other Dementia Diabetes Social History Smoking and tobacco status: smoker, details unknown cigarettes [ Other cigarette details: States he had just quit] Alcohol intake: current Alcohol intake frequency: holidays/special occasions only Substance/Drug Use: current Substance/Drug use type: Marijuana Other substance/drug use details: Occ Lives independently: Yes Household members: spouse Marital status: Data Anesthesia : 09/25/21 03:34 09/25/21 03:34 Short CBC 09/24/21 09/24/21 09/25/21 Range/Units 02:23 18:05 03:34 WBC 18.7 H 16.1 H 18.0 H (4.0-10.0) 10^3/uL Hgb 14.6 14.5 14.3 (11.7-16.6) g/dL Hct 47.1 45.7 45.4 (42.0-52.0) % MCV 92.4 91.4 90.4 (80-94) fl Plt Count 327 336 316 (130-400) 10^3/cmm Neut % (Auto) 71.5 85.1 70.9 % Neut # (Auto) 13.36 H 13.68 H 12.80 H (1.8-7.7) 10^3/uL BMP 09/23/21 09/24/21 09/24/21 03:00 02:23 18:05 Sodium 137 136 133 L Potassium 3.5 3.5 4.1 Chloride 95 L 96 L 94 L Carbon Dioxide 26 27 27 BUN 19 19 19 Creatinine 0.7 0.7 0.7 Glucose 133 H 187 H 176 H Calcium 9.3 9.2 9.4 09/25/21 03:34 Sodium 138 Potassium 3.5 Chloride 96 L Carbon Dioxide 30 H BUN 20 Creatinine 0.8 Glucose 172 H Calcium 9.6 ABG 09/23/21 16:10 Specimen Type Arterial Sample Site Radial, right ABG pH 7.44 ABG pCO2 47.6 H ABG pO2 68.9 L ABG HCO3 32.1 H ABG Base Excess 6.6 H O2 Delivery Device Room air Cardiac Studies: Echocardiogram 08/07/21 Echocardiogram Limited Views 09/20/21 Transesophageal Echocardiogram 08/08/21
--- NOTE | 2021-09-25 06:46 | ECG_ITS ---
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 Measurements Intervals [place] Rate: 99 P: [place]: QRS: 133 QRSD: 96 T: 131 QT: 383 QTc: 492 Interpretive Statements ATRIAL FLUTTER/TACHYCARDIA POSSIBLE RIGHT VENTRICULAR HYPERTROPHY [SOME/ALL OF: PROMINENT R IN V1, LATE TRANSITION, RAD, TEMO, SSS] POSSIBLE ANTERIOR MYOCARDIAL INFARCTION , PROBABLY OLD [30 ms Q WAVE IN V3/V4, OR R < 0.2 mV IN V4] Compared to ECG 09/20/2021 12:58:59 Atrial fibrillation no longer present Myocardial infarct finding still present Electronically Signed On 09-26-2021 13:50:13 CDT by Jose Priest M.D. [id number]
[2021-09-25] MEDS: sodium chloride 0.9% 1,000 ML 30 ML IV (07:00)
--- NOTE | 2021-09-25 07:00 | USCV_ITS ---
Franco Flowers Age: 41 Gender: M : 1980 Exam Date: 09/25/2021 07:17 Ordering Phys: Ruben Taveras MD Technologist: ENEDINA [place]am [place] [facility] [place]: AFIB BP: / HR: Rhythm: Sinus Technical Quality: MEASUREMENTS (Male / Female) Normal Values Medications Complications None Proc. Components After anesthesia sedated the patient, we introduced the probe. Given his morbid obesity and obesity hypoventilation, limited views were obtained focussed on ruling out left atrial appendage thrombus FINDINGS Left Ventricle LV function is severely reduced Right Ventricle Grossly normal Right Atrium Normal in size Left Atrium Appears dilated LA Appendage No left atrial appendage thrombus noted. IA Septum Normal Mitral Valve Moderate mitral regurgitation Aortic Valve Grossly normal Tricuspid Valve Grossly normal Pulmonic Valve Not visualized Pericardium Normal Aorta CONCLUSIONS Limited and focused views were obtained to rule out left atrial appendage thrombus as patient has morbid obesity and obesity hypoventilation syndrome and had high potential to decompensate with prolonged anesthesia. LV systolic function was severely reduced. No left atrial appendage thrombus was noted. We proceeded with synchronized cardioversion Eagle Moy MD (Electronically Signed) Final Date: 25 September 2021 16:08 S
--- NOTE | 2021-09-25 07:31 | ECG_ITS ---
[facility] Test Date: 2021-09-25 Pat Name: Franco Flowers Department: Room: 105 Gender: Male Degreasing Solution Reclaimer: : 1980 Requested By: Eagle Moy Order Number: [id number] Harrison MD: Jose Priest M.D. Measurements Intervals [place] Rate: 75 P: 92 MA: 204 QRS: 130 QRSD: 97 T: 104 QT: 392 QTc: 439 Interpretive Statements SINUS RHYTHM POSSIBLE RIGHT VENTRICULAR HYPERTROPHY [SOME/ALL OF: PROMINENT R IN V1, LATE TRANSITION, RAD, TEMO, SSS] POSSIBLE ANTERIOR MYOCARDIAL INFARCTION , PROBABLY OLD [30 ms Q WAVE IN V3/V4, OR R < 0.2 mV IN V4] Compared to ECG 09/25/2021 06:54:59 Atrial flutter no longer present Myocardial infarct finding still present Electronically Signed On 09-26-2021 13:50:35 CDT by Jose Priest M.D. [id number]
--- NOTE | 2021-09-25 07:39 | W.PM.OPSUD ---
Surgery/Procedure H&P Update DATE OF PROCEDURE: September 25, 2021 DATE H&P PERFORMED: 09/20/21 H&P UPDATE INFORMATION: I have reviewed H&P completed within last 30 days, I have examined patient prior to procedure and No changes to prior documentation PREOP DIAGNOSIS: Atrial fibrillation with RVR PRIMARY INDICATION FOR PROCEDURE: Atrial fibrillation with RVR PLANNED PROCEDURE: Operation Date: 09/25/21 07:00 Proposed Procedures p GUS(Not Applicable) - Eagle Moy M.D Cardioversion PATIENT REASSESSED PRIOR TO SEDATION, WITH NO CHANGE NOTED: Yes PHYSICAL EXAM: alert and oriented x 3 OTHER PERTINENT EXAM FINDINGS: Irregularly irregularly irregular heart rhythm. Procedure performed with anesthesia team
--- NOTE | 2021-09-25 07:48 | P.PCN_ITS ---
Procedure Note: Date of procedure: 09/25/21 Pre-procedure diagnosis: Atrial fibrillation with RVR Post-procedure diagnosis: other (Normal sinus rhythm) Procedure: Cardioversion/ Transesophageal echocardiogram Performing Provider: Eagle Moy Complications: None Other Information: Procedure detail: After consent was obtained, anesthesia team sedated the patient. We performed GUS that was limited mostly to assess Left atrial appendage as patient has obesity hypoventilation with high risk of decompensation. No SUSAN thrombus was noted. We proceeded with synchronized DCCV at 200 J. Patient converted to normal sinus rhythm with shock x1. Coding Level of Care Code Acute Sustainable Design Consultant for Tomeka Sanz
[2021-09-25] MEDS: insulin lispro 100 unit/1 mL SUBCUT ×4 (08:01→21:35)
[2021-09-25] MEDS: aspirin 325 mg EC Tablet PO (08:01)
[2021-09-25] MEDS: doxycycline 100 mg Tablet PO ×2 (08:01→17:38)
[2021-09-25] MEDS: apixaban 5 mg Tablet PO ×2 (08:02→17:44)
[2021-09-25] MEDS: potassium chloride ER 20 mEq Tablet PO ×2 (08:02→17:38)
[2021-09-25] MEDS: digoxin 250 mcg Tablet PO (08:02)
[2021-09-25] MEDS: metoprolol tartrate 50 mg Tablet 100 MG PO (08:02)
[2021-09-25] MEDS: predniSONE 20 mg Tablet 40 MG PO (08:02)
[2021-09-25] MEDS: amiodarone 200 mg Tablet 400 MG PO ×3 (08:02→21:34)
[2021-09-25] MEDS: metformin 500 mg Tablet PO ×2 (08:02→17:38)
[2021-09-25] MEDS: pantoprazole DR 40 mg Tablet PO (08:03)
[2021-09-25] MEDS: lisinopril 5 mg Tablet PO (08:03)
--- NOTE | 2021-09-25 08:06 | ECG_ITS ---
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 Measurements Intervals [place] Rate: 71 P: 46 KS: 199 QRS: 109 QRSD: 92 T: 123 QT: 395 QTc: 431 Interpretive Statements SINUS RHYTHM RIGHT AXIS DEVIATION [QRS AXIS > 100] LOW QRS VOLTAGE IN PRECORDIAL LEADS [QRS DEFLECTION < 1.0 mV IN CHEST LEADS] POSSIBLE ANTERIOR MYOCARDIAL INFARCTION , PROBABLY OLD [30 ms Q WAVE IN V3/V4, OR R < 0.2 mV IN V4] Compared to ECG 09/25/2021 07:40:01 Right-axis deviation now present Low QRS voltage now present Myocardial infarct finding still present Electronically Signed On 09-26-2021 11:14:48 CDT by Pretty Larry M.D. [id number]
--- NOTE | 2021-09-25 08:15 | PC.NURSE ---
Call received from Cardiology to obtain an EKG now
--- NOTE | 2021-09-25 10:23 | ANE.PACU2 ---
Inpatient post-anesthesia follow up: Airway intact: Yes Vital signs: Temperature 97.2 F Pulse Rate 69 Respiratory Rate 18 Blood Pressure 157/60 Pulse Oximetry 93 Oxygen Delivery Me thod [ Room Air Current Rate & Del amee] Oxygen Delivery Me thod Room Air Oxygen Flow Rate 4 Fraction of Inspir ed Oxygen 40 Hydration adequate: Yes Nausea and vomiting: No Pain level: 1 Mental status: Baseline
[2021-09-25 10:58] LABS: Glucose Point of Care 240 mg/dL (70-110)
--- NOTE | 2021-09-25 11:49 | P.PN_ITS ---
Subjective Subjective: Doing better. Had Cardioversion today. In sinus rhythm now. Sleeping better w/ BiPaP. 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 Waiting on Life Vest Status: Acute (2) LV dysfunction: ER 25% Status: Chronic (3) Persistent atrial fibrillation with RVR: NSR now after Cardioversion Status: Acute (4) Hypertension: stable Status: Chronic Qualifiers: Hypertension type: other secondary hypertension Qualified Code(s): I15.8 - Other secondary hypertension (5) Diabetes mellitus type 2 in obese: stable Status: Chronic (6) Obstructive sleep apnea: on BiPap Status: Chronic (7) BMI 60.0-69.9, adult: Status: Chronic (8) Hyperlipidemia: Status: Chronic Qualifiers: Hyperlipidemia type: mixed hyperlipidemia Qualified Code(s): E78.2 - Mixed hyperlipidemia (9) COPD exacerbation: stable Status: Acute (10) Troponin level elevated: Status: Acute Plan Increase Lasix Continue current treatment Life Vest Poss d/c tomorrow Attestations Medical Necessity Statement*: Requires ongoing i npatient stay for continued IV diure sis and management ?as noted above. Time Spent in Patient Care: 40 min Coding Level of Care Code Acute Commercial Lines Sales Executive for Chg Fwd Diagnoses Acute systolic CHF (congestive heart failure) I50.21 LV dysfunction I51.9 Persistent atrial fibrillation with RVR I48.19 Hypertension I15.8 Hypertension type: other secondary hypertension Diabetes mellitus type 2 in obese E11.69; E66.9 Obstructive sleep apnea G47.33 BMI 60.0-69.9, adult Z68.44 Hyperlipidemia E78.2 Hyperlipidemia type: mixed hyperlipidemia COPD exacerbation J44.1 Troponin level elevated R77.8
[2021-09-25 17:02] LABS: Glucose Point of Care 161 mg/dL (70-110)
--- NOTE | 2021-09-25 19:24 | P.PN_ITS ---
Subjective Subjective: Patient is doing well. He underwent successful GUS cardioversion and is now in normal sinus rhythm now. Vitals/I&O/Wt Last Vital Signs Temp 97.2 F L 09/25/21 07:25 Pulse 80 09/25/21 14:32 Resp 18 09/25/21 14:25 BP 138/84 09/25/21 11:56 Pulse Ox 95 09/25/21 14:25 09/25/21 09/25/21 09/25/21 06:59 14:59 22:59 Intake Total 480 / 1822.041 736 / 736 1020 / 1756 Output Total 1000 / 2500 1600 / 1600 900 / 2500 Balance -520 / -677.959 -864 / -864 120 / -744 Physical Exam Narrative: GENERAL: Patient is alert, awake and oriented x3. [] NECK: No jugular vein distension. [] HEENT: No cyanosis. No icterus. No pallor. [] HEART: Regular, S1 and S2 LUNGS: Clear to auscultate bilaterally. [] ABDOMEN: Soft, nontender and nondistended. Positive bowel sounds. No guarding, rebound or tenderness. [] CENTRAL NERVOUS SYSTEM: Grossly nonfocal. [] EXTREMITIES: Lower extremities with 2+ edema bilaterally. Pulses palpable in the lower extremities, both dorsalis pedis and posterior tibial. [] Data : 09/25/21 03:34 09/25/21 03:34 A&P Assessment and plan (1) CHF exacerbation: Status: Acute Qualifiers: Heart failure type: systolic Qualified Code(s): I50.23 - Acute on chronic systolic (congestive) heart failure (2) Persistent atrial fibrillation with RVR: Status: Acute Plan Patient was successfully cardioverted today. No SUSAN thrombus seen on GUS. Continue Eliquis 5 mg twice daily Since going into sinus rhythm, heart rates are low. We will stop digoxin. Add down titrate metoprolol to 50 mg twice daily. We will decrease her amiodarone to 400 mg twice daily for another 1 week and then subsequently further down titrate as outpatient. Patient will need ischemic work-up at some point. Surgeon Partner table limit for weight is 450 pounds so cannot undergo angiogram here. Stress test reliability will be low. We will discuss it as outpatient. LifeVest ordered Strict I&O's. Low-sodium diet. Thank you for involving us with care of this patient. We will continue to follow. Please call with questions. Attestations Medical Necessity Statement*: Care expected to cross 2 midnights. Coding Level of Care Code Acute Leather Splitter for Tomeka Fwd Diagnoses CHF exacerbation I50.23 Heart failure type: systolic Persistent atrial fibrillation with RVR I48.19
[2021-09-25 20:21] LABS: Glucose Point of Care 211 mg/dL (70-110)
[2021-09-25] MEDS: atorvastatin 40 mg Tablet PO (21:34)
[2021-09-25] MEDS: metoprolol tartrate 50 mg Tablet PO (21:34)
[2021-09-26] VITALS (10 sets, daily range): BP systolic 110–147; BP diastolic 62–89; PULSE 66–71; RESP 18–21; TEMP 36.7–36.9; O2SAT 90–96
[2021-09-26] MEDS: ipratropium-albuterol 3 mL Neb INHALATION ×2 (03:20→09:19)
[2021-09-26 05:15] LABS: Glucose Point of Care 138 mg/dL (70-110)
--- NOTE | 2021-09-26 05:28 | PC.NURSE ---
Pt sitting up in chair watching tv and talking to staff. Pts resp even and non-labored no distress noted. Pt had no c/o pain or discomfort at the present time. No needs voiced. Call light in reach.
[2021-09-26] MEDS: FUROsemide 10 mg/mL SDV 10mL 60 MG IVP (06:46)
[2021-09-26] MEDS: amiodarone 200 mg Tablet 400 MG PO (08:20)
[2021-09-26] MEDS: metformin 500 mg Tablet PO (08:20)
[2021-09-26] MEDS: lisinopril 5 mg Tablet PO (08:21)
[2021-09-26] MEDS: metoprolol tartrate 50 mg Tablet PO (08:21)
[2021-09-26] MEDS: doxycycline 100 mg Tablet PO (08:21)
[2021-09-26] MEDS: apixaban 5 mg Tablet PO (08:21)
[2021-09-26] MEDS: aspirin 325 mg EC Tablet PO (08:21)
[2021-09-26] MEDS: predniSONE 20 mg Tablet 40 MG PO (08:22)
[2021-09-26] MEDS: pantoprazole DR 40 mg Tablet PO (08:22)
[2021-09-26] MEDS: potassium chloride ER 20 mEq Tablet PO (08:22)
--- NOTE | 2021-09-26 08:48 | P.PN_ITS ---
Subjective Subjective: Patient is doing well. No complaints of chest pain today Vitals/I&O/Wt Last Vital Signs Temp 98.2 F 09/26/21 07:31 Pulse 66 09/26/21 07:31 Resp 18 09/26/21 07:31 BP 143/89 09/26/21 07:31 Pulse Ox 95 09/26/21 07:31 09/25/21 09/26/21 09/26/21 22:59 06:59 14:59 Intake Total 1070 / 1806 948 / 2754 400 / 400 Output Total 900 / 2500 300 / 2800 300 / 300 Balance 170 / -694 648 / -46 100 / 100 Weight last 48 hrs Weight 470 lb Physical Exam Narrative: GENERAL: Patient is alert, awake and oriented x3. [] NECK: No jugular vein distension. [] HEENT: No cyanosis. No icterus. No pallor. [] HEART: Regular, S1 and S2 LUNGS: Clear to auscultate bilaterally. [] ABDOMEN: Soft, nontender and nondistended. Positive bowel sounds. No guarding, rebound or tenderness. [] CENTRAL NERVOUS SYSTEM: Grossly nonfocal. [] EXTREMITIES: Lower extremities with 2+ edema bilaterally. Pulses palpable in the lower extremities, both dorsalis pedis and posterior tibial. [] Data : 09/25/21 03:34 09/25/21 03:34 A&P Assessment and plan (1) CHF exacerbation: Status: Acute (2) Persistent atrial fibrillation with RVR: Status: Acute Plan Patient was successfully cardioverted yesterday. No SUSAN thrombus seen on GUS. Continue Eliquis 5 mg twice daily Continue metoprolol and amiodarone Patient will need ischemic work-up at some point. Account Technician table limit for weight is 450 pounds so cannot undergo angiogram here. Stress test reliability will be low. We will discuss it as outpatient. LifeVest ordered Strict I&O's. Low-sodium diet. Thank you for involving us with care of this patient. Patient is stable to be discharged from cardiology standpoint. Please call with questions. Attestations Medical Necessity Statement*: Care expected to cross 2 midnights. Coding Level of Care Code Acute Electronic Integrated Systems Mechanic for [facility] Fwd Diagnoses CHF exacerbation I50.9 Persistent atrial fibrillation with RVR I48.19
--- NOTE | 2021-09-26 10:48 | PM.DCS ---
Discharge Providers Date of Admission: 09/20/21 10:56 Date of Discharge: September 26, 2021 Attending Provider at Admission: Ruben Taveras Attending Provider at Discharge: Iliana Smith MD Diagnoses at Discharge Discharge Diagnosis (1) CHF exacerbation: Status: Acute Qualifiers: Heart failure type: systolic Qualified Code(s): I50.23 - Acute on chronic systolic (congestive) heart failure Permanent problem details: acute on chronic systolic heart failure (2) Persistent atrial fibrillation with RVR: Status: Acute (3) COPD exacerbation: Status: Acute (4) Diabetes mellitus type 2 in obese: Status: Chronic (5) Obstructive sleep apnea: Status: Chronic Reason for Visit Reason for Visit: afib and trouble breathing Hospital Course Hospital Course 40-year-old gentleman recently with smoking addiction, states he is now since quit, with DM2, HTN, HLD, morbid history, JESUS, atrial fibrillation, congestive heart failure, with EF 25% with recent admission 08/06-08/11, at the time started on anticoagulation for atrial fibrillation, GUS was performed for possible cardioversion, however, with noted haziness in left atrial appendage consideration of cardioversion was deferred.? Consideration was given to ischemic versus nonischemic cardiomyopathy, per dictation: Angiography was discussed, but he preferred to set up as outpatient, similarly he did not stay for [facility] arrangements stating he will get it set up as outpatient. 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 She states his has been on the phone with insurance for 2 hours yesterday, and that they should hear back from them. He states he did not take his medications for 2 days as he ran out. He currently presents to ER with progressive shortness of breath, productive cough, he is not sure if there is any change in color of the sputumas he has been swallowing it.? Him presentation he is in A. fib with RVR, heart rate 137, difficult to treat, received both IV and p.o. metoprolol, 5 mg push and 100 mg p.o., received digoxin push as digoxin level was found below detection range, as well as IV push of diltiazem and transiently started on diltiazem drip. He denies chest pain or pressure.? Troponin is noted with elevation, baseline 46, 2-hour 62.29. He does report quite a bit of peripheral edema, and recently also edema and stiffness of tissues at the base of his pannus. Pt was admitted to [facility] unit. He was treated for Ac Sys CHF w/ IV lasix. Respiratory status improved but had significant edema and some KENT, PND which were slow to respond. He however had superimposed Ac COPD exacerbation and received bronchodilators, steroid and doxycycline. Cardiology consult was obtained and Dr Moy saw the pt. ECHO showed EF 25%. He had Atrial Fibrillation w/ RVR. He underwent GUS and cardioversion. His rhythm converted to sinus rhythm. Pt would need a life vest or have cardiac cath, however could not do the later due to his morbid obesity. A life Vest has been ordered and will be fitted at home. He has significant OBS and desaturated at night. This was corrected using a BiPaP when sleeping. He will need to contact his DME where his CPAP was ordered and start CPAP use. He will f/u w/ Dr Moy im 1 wk and 4 wks. He will start Amiodarone 400 mg bid for 1 wk then qd. Physical Exam Narrative: NAD CVS: S1S2, RRR , Mur (-), JVD (-) Resp: decreased BS basally ant, othe rwise clear Abd: s oft, NT, BS+ Edema 2+, pitting MANAGER WOUND: A&Ox4 Discharge Data Studies Completed and Pending Completed Studies During Hospitalization Category Date Time Status XR chest 1V portable [id number] Stat Exams 09/20/21 06:27 Completed CV. echo limited [id number] Routine Ultrasound 09/20/21 12:45 Completed CV. echo transesophageal [id number] Routine Ultrasound 09/25/21 07:00 Completed Radiology Impressions Chest X-Ray 09/20/21 06:27 IMPRESSION: 1. Heart is enlarged but stable when compared to the prior exam. 2. No acute focal pulmonary opacities are detected. Laboratory Results WBC 18.0 10^3/uL (4.0-10.0) H 09/25/21 03:34 RBC 5.02 10^6/uL (4.1-5.3) 09/25/21 03:34 Hgb 14.3 g/dL (11.7-16.6) 09/25/21 03:34 Hct 45.4 % (42.0-52.0) 09/25/21 03:34 MCV 90.4 fl (80-94) 09/25/21 03:34 MCH 28.5 pg (28.0-34.0) 09/25/21 03:34 MCHC 31.5 g/dL (30.0-36.0) 09/25/21 03:34 RDW 14.1 % (12.1-15.1) 09/25/21 03:34 Plt Count 316 10^3/cmm (130-400) 09/25/21 03:34 MPV 11.2 fL (7.4-10.4) H 09/25/21 03:34 Neut % (Auto) 70.9 % 09/25/21 03:34 Lymph % (Auto) 16.9 % 09/25/21 03:34 [place] % (Auto) 9.2 % 09/25/21 03:34 Eos % (Auto) 1.6 % 09/25/21 03:34 Baso % (Auto) 0.6 % 09/25/21 03:34 Neut # (Auto) 12.80 10^3/uL (1.8-7.7) H 09/25/21 03:34 Lymph # (Auto) 3.0 10^3/uL (0.8-4.8) 09/25/21 03:34 [place] # (Auto) 1.7 10^3/uL (0.2-0.9) H 09/25/21 03:34 Eos # (Auto) 0.3 10^3/uL (0.0-0.8) 09/25/21 03:34 Baso # (Auto) 0.1 10^3/uL (0.0-0.1) 09/25/21 03:34 Nucleated RBC % (auto) 0 % 09/25/21 03:34 Nucleated RBCs # 0.0 /100WBC 09/25/21 03:34 PT 14.40 SECONDS (12.1-14.9) 09/20/21 07:16 INR 1.08 (0.8-1.2) 09/20/21 07:16 APTT 32.1 SECONDS (23.9-36.7) 09/20/21 07:16 Specimen Type Arterial 09/23/21 16:10 Sample Site Radial, right 09/23/21 16:10 ABG pH 7.44 (7.35-7.45) 09/23/21 16:10 ABG pCO2 47.6 mmHg (35-45) H 09/23/21 16:10 ABG pO2 68.9 mmHg (80.0-100.0) L 09/23/21 16:10 ABG HCO3 32.1 mmol/L (22-26) H 09/23/21 16:10 ABG Base Excess 6.6 mmol/L (-2.0-2.0) H 09/23/21 16:10 Reji Test Pos 09/23/21 16:10 Hematocrit 44.3 % (42-52) 09/23/21 16:10 O2 Delivery Device Room air 09/23/21 16:10 Posting Machine Operator ID [id number] 09/23/21 16:10 Sodium 138 mmol/L (136-145) 09/25/21 03:34 Potassium 3.5 mmol/L (3.5-5.1) 09/25/21 03:34 Chloride 96 mmol/L (98-107) L 09/25/21 03:34 Carbon Dioxide 30 mmol/L (22-29) H 09/25/21 03:34 Anion Gap 15.5 (5-19) 09/25/21 03:34 BUN 20 mg/dL (6-20) 09/25/21 03:34 Creatinine 0.8 mg/dL (0.7-1.2) 09/25/21 03:34 GFR Calculation 105.5 mL/min (90-130) 09/25/21 03:34 Glucose 172 mg/dL (65-115) H 09/25/21 03:34 POC Glucose 138 mg/dL (70-110) H 09/26/21 04:54 Estimat Average Glucose 186 09/23/21 03:00 Hemoglobin A1c 8.1 % (4.0-6.0) H 09/23/21 03:00 Calculated Osmolality 293 mOsm/kg (285-295) 09/25/21 03:34 Calcium 9.6 mg/dL (8.5-10.5) 09/25/21 03:34 Magnesium 1.8 mg/dL (1.7-2.3) 09/24/21 02:23 Total Bilirubin 0.4 mg/dL (0.15-1.2) 09/20/21 07:16 AST 20 U/L (0-40) 09/20/21 07:16 ALT 14 U/L (0-41) 09/20/21 07:16 Alkaline Phosphatase 84 IU/L (40-130) 09/20/21 07:16 Troponin T Baseline 46 ng/L (0-15) H 09/20/21 07:16 Troponin T 120 Minute 62.29 ng/L (0-15) H 09/20/21 09:12 Delta Troponin T 16.29 ABS# (0-10) H* 09/20/21 09:12 Troponin T Hi Sens 6Hr 42.66 ng/L (0-15) H 09/20/21 13:11 Troponin T Hi Sens 6Hr Delta -3.34 ng/L (0-12) L 09/20/21 13:11 NT-Pro-B Natriuret Pep 1591 pg/mL (0-125) H 09/20/21 07:16 Total Protein 6.4 g/dL (6.6-8.7) L 09/20/21 07:16 Albumin 3.9 g/dL (3.5-5.2) 09/20/21 07:16 Globulin 2.5 g/dL (1.3-4.6) 09/20/21 07:16 Triglycerides 106 mg/dL (0-150) 09/23/21 03:00 Cholesterol 145 mg/dL (0-200) 09/23/21 03:00 LDL Cholesterol, Calc 86 mg/dL (50-129) 09/23/21 03:00 HDL Cholesterol 38 mg/dL (60-100) L 09/23/21 03:00 LDL/HDL Ratio 2.26 RATIO (0.00-3.22) 09/23/21 03:00 Cholesterol/HDL Ratio 3.82 mg/dL (1.0-5.00) 09/23/21 03:00 TSH 3.50 uIU/mL (0.27-4.20) 09/24/21 02:23 Nasal Influ A H1 2009 PCR Not detected (NOT DETECT) 09/20/21 14:00 Digoxin 0.4 ng/mL (0.6-1.2) L 03/30/22 02:23 Coronavirus 229E (PCR) Not detected (NOT DETECT) 09/20/21 14:00 Influenza A (H1) PCR Not detected (NOT DETECT) 09/20/21 14:00 Influenza A (H3) PCR Not detected (NOT DETECT) 09/20/21 14:00 Influenza Type A (PCR) Not detected (NOT DETECT) 09/20/21 14:00 Influenza Type B (PCR) Not detected (NOT DETECT) 09/20/21 14:00 SARS-CoV-2 (PCR) Not detected (NOT DETECT) 09/20/21 14:00 Group A Strep Rapid Negative (Negative) 09/20/21 14:00 Vitals Last Vital Signs Temp 98.2 F 09/26/21 07:31 Pulse 71 09/26/21 09:24 Resp 18 09/26/21 09:20 BP 143/89 09/26/21 07:31 Pulse Ox 94 09/26/21 09:20 Discharge Plan Discharge Patient Disposition: Home Condition: Stable Prescriptions: New atorvastatin 40 mg Tablet 40 mg PO BEDTIME 30 Days 0RF metformin 500 mg Tablet 500 mg PO BIDWM Qty: 60 0RF aspirin 325 mg Tablet,Delayed Release (Dr/Ec) 325 mg PO DAILY 30 Days 0RF metoprolol tartrate 50 mg Tablet 50 mg PO BID@0900,2100 60 Days 0RF doxycycline monohydrate 100 mg Tablet 100 mg PO BID 3 Days Qty: 6 0RF amiodarone 400 mg tablet 400 mg PO BID 7 Days Qty: 14 0RF amiodarone 400 mg tablet 400 mg PO DAILY 30 Days Qty: 30 0RF furosemide 80 mg tablet 80 mg PO BID Qty: 60 0RF Continued pantoprazole 40 mg Tablet,Delayed Release (Dr/Ec) 40 mg PO DAILY Qty: 30 0RF lisinopril 5 mg Tablet 5 mg PO DAILY Qty: 30 0RF Eliquis 5 mg Tablet 5 mg PO BID Qty: 60 0RF potassium chloride 20 mEq tablet extended release 20 meq PO BID Qty: 60 0RF Discontinued digoxin 250 mcg (0.25 mg) Tablet 250 mcg PO DAILY Qty: 30 0RF metoprolol tartrate 50 mg Tablet 100 mg PO BID@0900,2100 Qty: 120 0RF diltiazem HCl 60 mg Tablet 60 mg PO TID Qty: 90 0RF furosemide [Lasix] 20 mg tablet See Rx Instructions .ROUTE .COMPLEX 0RF Rx Instructions: 60 mg in the morning, 20 mg at 1600 Discharge Orders: Discharge Order (Routine); Ordered 09/26/21 Ordered By: Iliana Smith Referrals: Berna Varela FNP [Nurse Practitioner] - 10/09/21 10:00 am (You have new patient appointment With LAZARO Graf on October 09 at 10:00am ) Discharge Diet: Cardiac and Diabetic Discharge Activity: Resume usual activity Patient Instructions: Metoprolol (By mouth) (Lopressor, Toprol XL), Furosemide (By mouth) (Lasix), Doxycycline (By mouth) (Acticlate, Adoxa, Avidoxy, Monodox, Doryx), Aspirin (By mouth), Amiodarone (By mouth) (Cordarone, Pacerone), Metformin (By mouth) (Glucophage, Glucophage XR, Fortamet,..., Atorvastatin (By mouth) (Lipitor), Opioid Safety Discharge Attestations Time Spent in Discharge Care*: greater than 30 min Quality Metrics Clinical Quality Measures [ No reported AMI, CVA or VTE this stay] Coding Level of Care Code Acute g FW DC note Diagnoses CHF exacerbation I50.23 Heart failure type: systolic Persistent atrial fibrillation with RVR I48.19 COPD exacerbation J44.1 Diabetes mellitus type 2 in obese E11.69; E66.9 Obstructive sleep apnea G47.33
[2021-09-26 11:39] LABS: Glucose Point of Care 227 mg/dL (70-110)
[2021-09-26] MEDS: insulin lispro 100 unit/1 mL SUBCUT (12:16)
== END 2021-09-26 12:30 | disposition home or self-care (01) | DRG 291 ==
LOC: ER 06:51 → ICU 11:20 → CSU 09-21 06:44
PROVIDERS: Emergency Medicine; Hospitalist; Internal Medicine; Admitting Provider Internal Medicine; Emergency Provider Family Medicine; Visit Provider Internal Medicine
PROC: B24BZZZ Ultrasonography of Heart with Aorta (ICD-10-PCS; CPT 93312; principal; 2021-09-25 07:00)
PROC: 5A2204Z Restoration of Cardiac Rhythm, Single (ICD-10-PCS; 2021-09-25 07:00)
DX: I11.0 Hypertensive heart disease with heart failure (principal); I50.23 Acute on chronic systolic (congestive) heart failure; I48.19 Other persistent atrial fibrillation; J44.1 Chronic obstructive pulmonary disease with (acute) exacerbation; Z68.44 Body mass index [BMI] 60.0-69.9, adult; E11.9 Type 2 diabetes mellitus without complications; E66.9 Obesity, unspecified; G47.33 Obstructive sleep apnea (adult) (pediatric); Z87.891 Personal history of nicotine dependence; E78.2 Mixed hyperlipidemia; I42.9 Cardiomyopathy, unspecified; J02.9 Acute pharyngitis, unspecified; Z79.01 Long term (current) use of anticoagulants
CPT/HCPCS: 36415; 36416; 36600; 71045; 80048; 80053; 80061; 80162; 82803; 82962; 83036; 83735; 83880; 84443; 84484; 85025; 85610; 85730; 87081; 87631; 87635; 87880; 92960; 93005; 93308; 93312; 93320; 93325; 94640; 94660; 96365; 96366; 96372; 96375; 99285; J0282; J1160; J1815; J1940; J2704; J3475; J3490; J7030; J7060; J7512

== ENCOUNTER → 2021-11-10 09:33 | Outpatient (BNVA) | payer BC, MEDICAID, SELFPAY | PROVIDERS: PCP Family Medicine; Visit Provider Nurse Practitioner Family | DX: I48.20 Chronic atrial fibrillation, unspecified (principal); I15.8 Other secondary hypertension; I50.21 Acute systolic (congestive) heart failure; I44.0 Atrioventricular block, first degree | CPT/HCPCS: 93005; 99214 ==

== ENCOUNTER → 2021-11-25 08:55 | Outpatient (BNVA) | payer BC, MEDICAID, SELFPAY | PROVIDERS: PCP Family Medicine; Visit Provider Family Medicine | DX: E11.69 Type 2 diabetes mellitus with other specified complication (principal); E66.9 Obesity, unspecified; E78.5 Hyperlipidemia, unspecified; I10 Essential (primary) hypertension; N52.9 Male erectile dysfunction, unspecified | CPT/HCPCS: 80053; 80061; 83036; 84443; 85025 ==